=== PATIENT | male | born 1990 | race Hispanic/Latino ===

== ENCOUNTER 2018-02-02 09:41 | Inpatient (IN) | payer SELFPAY ==
[2018-02-02] MEDS ORDERED: ZOFRAN IV ONE (11:20)
[2018-02-02] MEDS ORDERED: BENTYL IM ONE (11:20)
[2018-02-02] MEDS ORDERED: NACL 0.9% 1000 ML 1,000 ML IV ONE ×2 (11:20→15:29)
--- NOTE | 2018-02-02 11:36 | Emergency Department Report ---
HPI - General Chief Complaint: Abdominal Pain Time Seen by Provider: 02/02/18 11:13 - HPI HPI: Room 22 The patient is a 27-year-old male presenting with chief complaint of abdominal pain and constipation. The patient states he hasn't had a good bowel movement since earlier this week. The patient states yesterday was very small amount of stool. Patient states last night he developed periumbilical abdominal pain. Patient is to nausea and vomiting 3. Patient states he is able to pass flatus yesterday but none today. The patient states he attempted to use Ex-Lax and Gas-X but it did not help. Patient denies any history of fever. The patient states he has also had ~20 pound weight loss over the past 2 months but states he has been working out recently. Location: [See above] Duration: [See above] Quality: [See above] Severity: [See above] Modifying factors: [see above] Context: [see above] Mode of transportation: [not driving] ED Past Medical Hx - Past Medical History Previous Medical History?: No - Surgical History Past Surgical History?: No - Family History Family history: no significant - Social History Smoking Status: Former Smoker (none 5 years) Substance Use Type: None (denies illicit drug use), Alcohol (occasional) - Medications Home Medications: Home Medications Medication Instructions Recorded Confirmed Last Taken Type No Known Home Medications [No 02/02/18 02/02/18 Unknown History Reported Home Medications] ED Review of Systems ROS: Stated complaint: CHEST PAIN/TIGHTNESS Other details as noted in HPI Constitutional: no symptoms reported Eyes: denies: eye pain ENT: denies: throat pain Respiratory: no symptoms reported Cardiovascular: denies: chest pain Endocrine: no symptoms reported Gastrointestinal: abdominal pain, nausea, vomiting, constipation Genitourinary: denies: dysuria Musculoskeletal: denies: back pain Neurological: denies: headache Physical Exam - Physical Exam Vital Signs: Vital Signs 02/02/18 09:56 Temperature 98.2 F Pulse Rate 105 H Respiratory 24 Rate Blood Pressure 142/99 O2 Sat by Pulse 99 Oximetry Physical Exam: GENERAL: The patient is well-developed well-nourished male lying on stretcher not appearing to be in acute distress. [] HEENT: Normocephalic. Atraumatic. Extraocular motions are intact. Patient has moist mucous membranes. NECK: Supple. Trachea midline CHEST/LUNGS: Clear to auscultation. There is no respiratory distress noted. HEART/CARDIOVASCULAR: Regular. There is no tachycardia. There is no gallop rub or murmur. ABDOMEN: Abdomen is soft, with mild discomfort to palpation in the midepigastric and right upper quadrant. There is no rebound or guarding. Patient has normal bowel sounds. There is no abdominal distention. SKIN: There is no rash. There is no edema. There is no diaphoresis. NEURO: The patient is awake, alert, and oriented. The patient is cooperative. The patient has normal speech MUSCULOSKELETAL: There is no evidence of acute injury. ED Course Vital Signs 02/02/18 09:56 Temperature 98.2 F Pulse Rate 105 H Respiratory 24 Rate Blood Pressure 142/99 O2 Sat by Pulse 99 Oximetry ED Medical Decision Making - Lab Data Result diagrams: 02/02/18 11:47 02/02/18 11:47 Laboratory Tests 02/02/18 02/02/18 02/02/18 11:47 11:47 12:26 WBC 20.3 H RBC 5.97 H Hgb TNR Hct 51.5 H MCV 86 MCH TNR MCHC TNR RDW TNR Plt Count 254 Add Manual Diff Complete Total Counted 100 Seg Neuts % (Manual) 80.0 H Band Neutrophils % 10.0 Lymphocytes % (Manual) 6.0 L Reactive Lymphs % (Man) 0 Monocytes % (Manual) 3.0 Eosinophils % (Manual) 0 Basophils % (Manual) 0 Metamyelocytes % 1.0 Myelocytes % 0 Promyelocytes % 0 Blast Cells % 0 Nucleated RBC % Not Reportable Seg Neutrophils # Man 16.2 H Band Neutrophils # 2.0 Lymphocytes # (Manual) 1.2 Abs React Lymphs (Man) 0.0 Monocytes # (Manual) 0.6 Eosinophils # (Manual) 0.0 Basophils # (Manual) 0.0 Metamyelocytes # 0.2 Myelocytes # 0.0 Promyelocytes # 0.0 Blast Cells # 0.0 WBC Morphology Not Reportable Hypersegmented Neuts Not Reportable Hyposegmented Neuts Not Reportable Hypogranular Neuts Not Reportable Smudge Cells Not Reportable Toxic Granulation Not Reportable Toxic Vacuolation Not Reportable Dohle Bodies Not Reportable Pelger-Huet Anomaly Not Reportable Ariadna Rods Not Reportable Platelet Estimate Appears normal Clumped Platelets Not Reportable Plt Clumps, EDTA Not Reportable Large Platelets Not Reportable Giant Platelets Not Reportable Platelet Satelliting Not Reportable Plt Morphology Comment Not Reportable RBC Morphology Not Reportable Dimorphic RBCs Not Reportable Polychromasia Not Reportable Hypochromasia Not Reportable Poikilocytosis Not Reportable Anisocytosis 1+ Microcytosis Not Reportable Macrocytosis Not Reportable Spherocytes Not Reportable Pappenheimer Bodies Not Reportable Sickle Cells Not Reportable Target Cells Not Reportable Tear Drop Cells Not Reportable Ovalocytes 1+ Helmet Cells Not Reportable Colon-[place] Bodies Not Reportable [place] Rings Not Reportable Lisa Cells 1+ Bite Cells Not Reportable Crenated Cell Not Reportable Elliptocytes Not Reportable Acanthocytes (Spur) Not Reportable Rouleaux Not Reportable Hemoglobin C Crystals Not Reportable Schistocytes Not Reportable Malaria parasites Not Reportable [place] Bodies Not Reportable Hem Pathologist Commnt No Sodium TNR Potassium TNR Chloride TNR Carbon Dioxide TNR Anion Gap TNR BUN TNR Creatinine TNR Estimated GFR TNR BUN/Creatinine Ratio TNR Glucose TNR Calcium TNR Total Bilirubin TNR AST TNR ALT TNR Alkaline Phosphatase TNR Total Protein TNR Albumin TNR Albumin/Globulin Ratio TNR Amylase TNR Lipase TNR Urine Color Yellow Urine Turbidity Clear Urine pH 6.0 Ur Specific [place] 1.030 Urine Protein 30 mg/dl Urine Glucose (UA) >=500 Urine Ketones 80 Urine Blood Sm Urine Nitrite Neg Urine Bilirubin Neg Urine Urobilinogen < 2.0 Ur Leukocyte Esterase Neg Urine WBC (Auto) < 1.0 Urine RBC (Auto) 4.0 - Radiology Data Radiology results: report reviewed (CT abdomen and pelvis), image reviewed (CT abdomen and pelvis) [address] [address] Cat Scan Report Signed Patient: OFE CERVANTES MR#: [id number] : 1990 Acct:[id number] Age/Sex: 27 / M ADM Date: 02/02/18 Loc: ED Attending Dr: Ordering Physician: JAYLEEN SIDHU MD Date of Service: 02/02/18 Procedure(s): CT abdomen pelvis w con Accession Number(s): [id number] cc: JAYLEEN SIDHU MD CT ABDOMEN PELVIS WITH CONTRAST: HISTORY: Diffuse abdominal pain, nausea and vomiting. COMPARISON: none. TECHNIQUE: Helical CT in 1.25mm intervals following IV contrast. Sagittal and coronal reconstructions. FINDINGS: Lung bases: Normal. Liver: Mild diffuse fatty infiltration throughout the liver is noted. The liver appears mildly enlarged. No focal liver mass. Biliary system: Normal. Pancreas: The pancreatic body and tell are thickened and slightly heterogeneous. There is moderate fluid surrounding the pancreas suggesting acute pancreatitis. A 1 cm hypodensity is identified in the pancreatic body which probably represents early pseudocyst formation. Spleen: Normal. Kidneys/ureters/bladder: Normal. Adrenal glands: Normal. Aorta: Normal. Intestines: Normal. Appendix: Normal. Pelvic viscera: Normal. Ascites: Small peripancreatic ascites. Adenopathy: None. Musculoskeletal: Normal. IMPRESSION: Findings consistent with acute pancreatitis. Transcribed By: TTR Dictated By: SWATI STEPHENSON JR, MD Electronically Authenticated By: SWATI STEPHENSON JR, MD Signed Date/Time: 02/02/18 152 DD/ TD/TT: 02/02/18 152 - Differential Diagnosis constipation, small bowel instruction, ileus Critical care attestation.: If time is entered above; I have spent that time in minutes in the direct care of this critically ill patient, excluding procedure time. ED Disposition Clinical Impression: Acute abdominal pain, Acute pancreatitis, Leukocytosis Disposition: OP ADMIT IP TO THIS HOSP Is pt being admited?: Yes Does the pt Need Aspirin: No Condition: Fair Time of Disposition: 15:32 (Hospitalist paged (Dr Pereira))
[2018-02-02 12:53] LABS: Bilirubin,Urine NEG (Negative); Blood,Urine SM (Negative); Color,Urine Yellow (Yellow); Urobilinogen,Urine < 2.0 mg/dL (<2.0); WBC,Urine < 1.0 /HPF (0.0-6.0)
[2018-02-02 13:37] LABS: Hematocrit 51.5 % (35.5-45.6); Mean Corpuscular Volume 86 fl (84-94); Platelet Count 254 K/mm3 (140-440); Red Blood Count 5.97 M/mm3 (3.65-5.03)
[2018-02-02 13:38] LABS: Hemoglobin TNR gm/dl (11.8-15.2); Mean Corpuscular HGB Conc TNR % (32-34); Mean Corpuscular Hemoglobin TNR pg (28-32); Red Cell Distribution Width TNR % (13.2-15.2)
[2018-02-02] MEDS ORDERED: TORADOL IV ONE (14:04)
[2018-02-02] MEDS ORDERED: BENADRYL IV ONE (14:04)
[2018-02-02 14:10] LABS: Alanine Aminotransferase TNR units/L (7-56); Albumin TNR g/dL (3.9-5); Calcium TNR mg/dL (8.4-10.2)
[2018-02-02 14:11] LABS: Lipase TNR units/L (13-60)
[2018-02-02 14:18] LABS: BUN/Creatinine Ratio TNR; Blood Urea Nitrogen TNR mg/dL (9-20)
[2018-02-02 14:19] LABS: Hemolysis Index TNR
[2018-02-02 14:26] LABS: Basophils % (Manual) 0 % (0.0-1.8); Eosinophils % (Manual) 0 % (0.0-4.3); Total Cells Counted 100
[2018-02-02 14:27] LABS: Anisocytosis 1+; Burr Cells 1+; Ovalocytes 1+
--- NOTE | 2018-02-02 15:23 | Cat Scan Report ---
CT ABDOMEN PELVIS WITH CONTRAST: HISTORY: Diffuse abdominal pain, nausea and vomiting. COMPARISON: none. TECHNIQUE: Helical CT in 1.25mm intervals following IV contrast. Sagittal and coronal reconstructions. FINDINGS: Lung bases: Normal. Liver: Mild diffuse fatty infiltration throughout the liver is noted. The liver appears mildly enlarged. No focal liver mass. Biliary system: Normal. Pancreas: The pancreatic body and tell are thickened and slightly heterogeneous. There is moderate fluid surrounding the pancreas suggesting acute pancreatitis. A 1 cm hypodensity is identified in the pancreatic body which probably represents early pseudocyst formation. Spleen: Normal. Kidneys/ureters/bladder: Normal. Adrenal glands: Normal. Aorta: Normal. Intestines: Normal. Appendix: Normal. Pelvic viscera: Normal. Ascites: Small peripancreatic ascites. Adenopathy: None. Musculoskeletal: Normal. IMPRESSION: Findings consistent with acute pancreatitis.
[2018-02-02] MEDS ORDERED: SUBLIMAZE IV ONE (15:29)
[2018-02-02] MEDS ORDERED: DILAUDID IV ONE (16:48)
[2018-02-02] MEDS ORDERED: DILAUDID ONE (16:48)
[2018-02-02] MEDS ORDERED: ZOFRAN IV PRN (16:50)
[2018-02-02] MEDS ORDERED: SODIUM CHLORIDE FLUSH SYRINGE 10 ML IV PRN (16:50)
[2018-02-02] MEDS ORDERED: MIRALAX 3350 PO ONE (16:55)
[2018-02-02] MEDS ORDERED: COLACE PO ONE (16:55)
[2018-02-02] MEDS ORDERED: D50W (25GM) Syringe IV PRN (16:57)
[2018-02-02] MEDS ORDERED: NACL 0.9% 1000 ML 1,000 ML IV SCH (17:00)
[2018-02-02] MEDS ORDERED: KCL 20 MEQ in LACTATED RINGERS 1,000 ML IV SCH (17:00)
[2018-02-02] MEDS: NACL 0.9% 1000 ML 1,000 ML IV SCH ×4 (17:00→22:22)
--- NOTE | 2018-02-02 17:07 | History and Physical Report ---
History of Present Illness Date of examination: 02/02/18 Date of admission: 02/02/18 Chief complaint: Abdominal pain History of present illness: Patient is a 27-year-old male previously diagnosed with hyperlipidemia but with dietary changes recommended. He presents to the ER with complaints of abdominal pain and constipation who reports that for 1 week has not moved his bowel yesterday had a small amount of stool has been having increased polyuria and polydipsia over the last 2 months. He reports that about 2 days ago he began to experience significant name of his abdomen which waxed and waned rates it a 10 over 10 in intensity at this morning prompting him to come to the hospital. He denies any albuterol aggravating factors. He reports that he has been unable to keep any food down for the last 3 days. On arrival to the ER his blood was noted to be very lipemic and could not obtain accurate BMP he did not demonstrate any DVT about a significant elevated leukocytosis. He denies alcohol or tobacco use. He reports that he lost about 20 pounds in the last 2 months although he reports active exercise. ROS Constitutional: No fever, fatigue or weight loss. Skin: No rash. Eyes: No recent vision problems or eye pain. ENT: No congestion, ear pain, or sore throat. Endocrine: No thyroid problems. Cardiovascular: No chest pain. Respiratory: No cough, shortness of breath, congestion, or wheezing. Gastrointestinal: Positive abdominal pain with associated nausea vomiting no diarrhea Genitourinary: No dysuria. Musculoskeletal: No joint swelling. Neurologic: No seizures. Hematologic: No unusual bruising or bleeding. Psychiatric: No psychiatric problems, hallucinations or depression. All other systems reviewed and otherwise negative. Past History Past Medical History: hyperlipidemia Past Surgical History: No surgical history Social history: no significant social history, lives with family. denies: smoking, alcohol abuse, prescription drug abuse Family history: no significant family history Medications and Allergies Allergies Allergy/AdvReac Type Severity Reaction Status Date / Time No Known Allergies Allergy Unverified 02/02/18 09:56 Home Medications Medication Instructions Recorded Confirmed Last Taken Type No Known Home Medications [No 02/02/18 02/02/18 Unknown History Reported Home Medications] Active Meds: Active Medications Acetaminophen (Tylenol) 650 mg PO Q4H PRN PRN Reason: Pain MILD(1-3)/Fever >100.5/RODRIGUEZ Dextrose (D50w (25gm) Syringe) 0 ml IV PRN PRN PRN Reason: Hypoglycemia Docusate Sodium (Colace) 100 mg PO ONCE ONE Stop: 02/02/18 16:56 Hydromorphone HCl (Dilaudid) 1 mg IV Q3H PRN PRN Reason: Pain, Moderate (4-6) Sodium Chloride (Nacl 0.9% 1000 Ml) 1,000 mls @ 250 mls/hr IV ONCE ONE Stop: 02/02/18 19:28 Last Admin: 02/02/18 16:12 Dose: 250 mls/hr Documented by: Sodium Chloride (Nacl 0.9% 1000 Ml) 1,000 mls @ 0 mls/hr IV ONCE BRAYDEN Stop: 02/03/18 17:01 Potassium Chloride/Dextrose/Sod Cl (D5w/0.45% Nacl/Kcl 20 Meq) 20 meq in 1,000 mls @ 125 mls/hr IV DIRECT BRAYDEN Ondansetron HCl (Zofran) 4 mg IV Q8H PRN PRN Reason: Nausea And Vomiting Polyethylene Glycol (Miralax 3350) 17 gm PO ONCE ONE Stop: 02/02/18 16:56 Sodium Chloride (Sodium Chloride Flush Syringe 10 Ml) 10 ml IV BID BRAYDEN Sodium Chloride (Sodium Chloride Flush Syringe 10 Ml) 10 ml IV PRN PRN PRN Reason: LINE FLUSH Exam - Physical Exam Narrative exam: VITAL SIGNS: Reviewed. GENERAL: The patient appeared well nourished and normally developed and severe pain. Vital signs as documented. HEAD: No signs of head trauma. EYES: Pupils are equal. Extraocular motions intact. EARS: Hearing grossly intact. MOUTH: Oropharynx is normal. NECK: No adenopathy, no JVD. CHEST: Chest with clear breath sounds bilaterally. No wheezes, rales, or rhonchi. CARDIAC: Regular rate and rhythm. S1 and S2, without murmurs, gallops, or rubs. VASCULAR: No Edema. Peripheral pulses normal and equal in all extremities. ABDOMEN: Soft, dialyzed because of tenderness with guarding. No sign of distention. and no masses palpated. Bowel Sounds normal. MUSCULOSKELETAL: Good range of motion of all major joints. Extremities without clubbing, cyanosis or edema. NEUROLOGIC EXAM: Alert and oriented x 3. No focal sensory or strength defici ts. Speech normal. Follows commands. PSYCHIATRIC: Mood normal. SKIN: No rash or lesions. - Constitutional Vitals: Temp Pulse Resp BP Pulse Ox 98.6 F 126 H 16 129/80 98 02/02/18 16:00 02/02/18 16:00 02/02/18 16:00 02/02/18 16:00 02/02/18 16:00 Results - Labs CBC & Chem 7: 02/03/18 04:43 02/03/18 04:43 Labs: Laboratory Last Values WBC 20.3 K/mm3 (4.5-11.0) H 02/02/18 11:47 RBC 5.97 M/mm3 (3.65-5.03) H 02/02/18 11:47 Hgb TNR 02/02/18 11:47 Hct 51.5 % (35.5-45.6) H 02/02/18 11:47 MCV 86 fl (84-94) 02/02/18 11:47 MCH TNR 02/02/18 11:47 MCHC TNR 02/02/18 11:47 RDW TNR 02/02/18 11:47 Plt Count 254 K/mm3 (140-440) 02/02/18 11:47 Add Manual Diff Complete 02/02/18 11:47 Total Counted 100 02/02/18 11:47 Seg Neuts % (Manual) 80.0 % (40.0-70.0) H 02/02/18 11:47 Band Neutrophils % 10.0 % 02/02/18 11:47 Lymphocytes % (Manual) 6.0 % (13.4-35.0) L 02/02/18 11:47 Reactive Lymphs % (Man) 0 % 02/02/18 11:47 Monocytes % (Manual) 3.0 % (0.0-7.3) 02/02/18 11:47 Eosinophils % (Manual) 0 % (0.0-4.3) 02/02/18 11:47 Basophils % (Manual) 0 % (0.0-1.8) 02/02/18 11:47 Metamyelocytes % 1.0 % 02/02/18 11:47 Myelocytes % 0 % 02/02/18 11:47 Promyelocytes % 0 % 02/02/18 11:47 Blast Cells % 0 % 02/02/18 11:47 Nucleated RBC % Not Reportable 02/02/18 11:47 Seg Neutrophils # Man 16.2 K/mm3 (1.8-7.7) H 02/02/18 11:47 Band Neutrophils # 2.0 K/mm3 02/02/18 11:47 Lymphocytes # (Manual) 1.2 K/mm3 (1.2-5.4) 02/02/18 11:47 Abs React Lymphs (Man) 0.0 K/mm3 02/02/18 11:47 Monocytes # (Manual) 0.6 K/mm3 (0.0-0.8) 02/02/18 11:47 Eosinophils # (Manual) 0.0 K/mm3 (0.0-0.4) 02/02/18 11:47 Basophils # (Manual) 0.0 K/mm3 (0.0-0.1) 02/02/18 11:47 Metamyelocytes # 0.2 K/mm3 02/02/18 11:47 Myelocytes # 0.0 K/mm3 02/02/18 11:47 Promyelocytes # 0.0 K/mm3 02/02/18 11:47 Blast Cells # 0.0 K/mm3 02/02/18 11:47 WBC Morphology Not Reportable 02/02/18 11:47 Hypersegmented Neuts Not Reportable 02/02/18 11:47 Hyposegmented Neuts Not Reportable 02/02/18 11:47 Hypogranular Neuts Not Reportable 02/02/18 11:47 Smudge Cells Not Reportable 02/02/18 11:47 Toxic Granulation Not Reportable 02/02/18 11:47 Toxic Vacuolation Not Reportable 02/02/18 11:47 Dohle Bodies Not Reportable 02/02/18 11:47 Pelger-Huet Anomaly Not Reportable 02/02/18 11:47 Ariadna Rods Not Reportable 02/02/18 11:47 Platelet Estimate Appears normal 02/02/18 11:47 Clumped Platelets Not Reportable 02/02/18 11:47 Plt Clumps, EDTA Not Reportable 02/02/18 11:47 Large Platelets Not Reportable 02/02/18 11:47 Giant Platelets Not Reportable 02/02/18 11:47 Platelet Satelliting Not Reportable 02/02/18 11:47 Plt Morphology Comment Not Reportable 02/02/18 11:47 RBC Morphology Not Reportable 02/02/18 11:47 Dimorphic RBCs Not Reportable 02/02/18 11:47 Polychromasia Not Reportable 02/02/18 11:47 Hypochromasia Not Reportable 02/02/18 11:47 Poikilocytosis Not Reportable 02/02/18 11:47 Anisocytosis 1+ 02/02/18 11:47 Microcytosis Not Reportable 02/02/18 11:47 Macrocytosis Not Reportable 02/02/18 11:47 Spherocytes Not Reportable 02/02/18 11:47 Pappenheimer Bodies Not Reportable 02/02/18 11:47 Sickle Cells Not Reportable 02/02/18 11:47 Target Cells Not Reportable 02/02/18 11:47 Tear Drop Cells Not Reportable 02/02/18 11:47 Ovalocytes 1+ 02/02/18 11:47 Helmet Cells Not Reportable 02/02/18 11:47 Colon-[place] Bodies Not Reportable 02/02/18 11:47 [place] Rings Not Reportable 02/02/18 11:47 Lisa Cells 1+ 02/02/18 11:47 Bite Cells Not Reportable 02/02/18 11:47 Crenated Cell Not Reportable 02/02/18 11:47 Elliptocytes Not Reportable 02/02/18 11:47 Acanthocytes (Spur) Not Reportable 02/02/18 11:47 Rouleaux Not Reportable 02/02/18 11:47 Hemoglobin C Crystals Not Reportable 02/02/18 11:47 Schistocytes Not Reportable 02/02/18 11:47 Malaria parasites Not Reportable 02/02/18 11:47 [place]ak Bodies Not Reportable 02/02/18 11:47 Hem Pathologist Commnt No 02/02/18 11:47 Sodium TNR 02/02/18 11:47 Potassium TNR 02/02/18 11:47 Chloride TNR 02/02/18 11:47 Carbon Dioxide TNR 02/02/18 11:47 Anion Gap TNR 02/02/18 11:47 BUN TNR 02/02/18 11:47 Creatinine TNR 02/02/18 11:47 Estimated GFR TNR 02/02/18 11:47 BUN/Creatinine Ratio TNR 02/02/18 11:47 Glucose TNR 02/02/18 11:47 POC Glucose 322 (70-105) H 02/02/18 16:58 Calcium TNR 02/02/18 11:47 Total Bilirubin TNR 02/02/18 11:47 AST TNR 02/02/18 11:47 ALT TNR 02/02/18 11:47 Alkaline Phosphatase TNR 02/02/18 11:47 Total Protein TNR 02/02/18 11:47 Albumin TNR 02/02/18 11:47 Albumin/Globulin Ratio TNR 02/02/18 11:47 Amylase TNR 02/02/18 11:47 Lipase TNR 02/02/18 11:47 Urine Color Yellow (Yellow) 02/02/18 12:26 Urine Turbidity Clear (Clear) 02/02/18 12:26 Urine pH 6.0 (5.0-7.0) 02/02/18 12:26 Ur Specific [place] 1.030 (1.003-1.030) 02/02/18 12:26 Urine Protein 30 mg/dl mg/dL (Negative) 02/02/18 12:26 Urine Glucose (UA) >=500 mg/dL (Negative) 02/02/18 12:26 Urine Ketones 80 mg/dL (Negative) 02/02/18 12:26 Urine Blood Sm (Negative) 02/02/18 12:26 Urine Nitrite Neg (Negative) 02/02/18 12:26 Urine Bilirubin Neg (Negative) 02/02/18 12:26 Urine Urobilinogen < 2.0 mg/dL (<2.0) 02/02/18 12:26 Ur Leukocyte Esterase Neg (Negative) 02/02/18 12:26 Urine WBC (Auto) < 1.0 /HPF (0.0-6.0) 02/02/18 12:26 Urine RBC (Auto) 4.0 /HPF (0.0-6.0) 02/02/18 12:26 - Imaging and Cardiology CT scan - abdomen: image reviewed (consistent with acute pancreatitis) Assessment and Plan Assessment and plan: Patient is a 27-year-old male previously diagnosed with hyperlipidemia but with dietary changes recommended. He presents to the ER with complaints of abdominal pain and constipation who reports that for 1 week has not moved his bowel yesterday had a small amount of stool has been having increased polyuria and polydipsia over the last 2 months. He reports that about 2 days ago he began to experience significant name of his abdomen which waxed and waned rates it a 10 over 10 in intensity at this morning prompting him to come to the hospital. He denies any albuterol aggravating factors. He reports that he has been unable to keep any food down for the last 3 days. On arrival to the ER his blood was noted to be very lipemic and could not obtain accurate BMP he did not demonstrate any DVT about a significant elevated leukocytosis. He denies alcohol or tobacco use. Acute severe pancreatitis Hyperosmolar hyperglycemic state possible DKA Suspect secondary to Hyperlipidemia, but rule out other sources Leukocytosis- doubt infectious source Sinus Tachycardia Severe dehydration Peritoneal irritation Constipation secondary to spinal bowel from acute severe pancreatitis Plan Admit to ICU Site Administrator consult. Discussed with Dr Perez Start on aggressive fluid resuscitation Pain control Repeat CMP in 4 hours Blood cultures EKG reviewed and sinus tachycardia noted Insulin drip with DKA protocol DVT/GI Prophy The high probability of a clinically significant, sudden or life threatening deterioration of the [GI] system(s) required my full and direct attention, intervention and personal management. The aggregate critical care time was [75] minutes. This time is in addition to time spent performing reported procedures but includes the following: [x] Data Review and interpretation [x] Patient assessment and monitoring of vital signs [x] Documentation [x] Medication orders and management Advance Directives: Yes Plan of care discussed with patient/family: Yes
[2018-02-02 17:31] LABS: Amphetamine Screen,Urine PRESUMPTIVE NEGATIVE; Benzodiazepines Screen,Urine PRESUMPTIVE NEGATIVE; Cannabinoid Screen,Urine PRESUMPTIVE NEGATIVE; Cocaine Screen,Urine PRESUMPTIVE NEGATIVE; Methadone Screen,Urine PRESUMPTIVE NEGATIVE; Opiate Screen,Urine PRESUMPTIVE NEGATIVE
[2018-02-02 17:56] LABS: BUN/Creatinine Ratio 16; Blood Urea Nitrogen 14.4 mg/dL (9-20)
[2018-02-02 17:57] LABS: Calcium 8.6 mg/dL (8.4-10.2)
[2018-02-02 17:59] LABS: Alanine Aminotransferase 34.8 units/L (7-56); Albumin 4.3 g/dL (3.9-5)
[2018-02-02 18:03] LABS: HDL Cholesterol 13.2 mg/dL (40-59)
[2018-02-02 18:06] LABS: LDL Cholesterol,Direct 0 mg/dL (50-130)
[2018-02-02] MEDS: HumuLIN R 100 UNITS in NACL 0.9% 99 ML IV SCH (18:17)
[2018-02-02 19:14] LABS: Lipase > 300 units/L (13-60)
[2018-02-02 21:12] LABS: Hemolysis Index 73
[2018-02-02 21:24] LABS: Blood Urea Nitrogen 10 mg/dL (9-20)
[2018-02-02 21:25] LABS: Alanine Aminotransferase < 5 units/L (7-56); BUN/Creatinine Ratio 20; Calcium 7.1 mg/dL (8.4-10.2)
[2018-02-02 21:26] LABS: Albumin 3.2 g/dL (3.9-5)
[2018-02-02 21:58] LABS: Hemolysis Index 98
[2018-02-02 22:06] LABS: Blood Urea Nitrogen 10 mg/dL (9-20)
[2018-02-02 22:11] LABS: BUN/Creatinine Ratio 20
[2018-02-02 22:14] LABS: Calcium 2.4 mg/dL (8.4-10.2)
[2018-02-02] MEDS: SODIUM CHLORIDE FLUSH SYRINGE 10 ML IV SCH (22:23)
[2018-02-02] MEDS: DILAUDID IV PRN (22:24)
[2018-02-02 23:24] LABS: Hemolysis Index 87
[2018-02-02 23:30] LABS: Blood Urea Nitrogen 9 mg/dL (9-20)
[2018-02-02 23:48] LABS: BUN/Creatinine Ratio 13
[2018-02-03 01:33] LABS: Blood Urea Nitrogen 9 mg/dL (9-20); Calcium 6.8 mg/dL (8.4-10.2); Hemolysis Index 104
[2018-02-03 02:02] LABS: BUN/Creatinine Ratio 18
[2018-02-03] MEDS: TYLENOL PO PRN ×2 (04:14→18:21)
[2018-02-03 05:00] LABS: Basophils # (Auto) 0.1 K/mm3 (0.0-0.1); Basophils % (Auto) 0.6 % (0.0-1.8); Lymphocytes # (Auto) 1.4 K/mm3 (1.2-5.4); Lymphocytes % (Auto) 8.8 % (13.4-35.0); Mean Corpuscular HGB Conc 36 % (32-34); Mean Corpuscular Hemoglobin 31 pg (28-32); Mean Corpuscular Volume 87 fl (84-94); Monocytes % (Auto) 6.5 % (0.0-7.3); Platelet Count 196 K/mm3 (140-440); Red Blood Count 5.88 M/mm3 (3.65-5.03); Red Cell Distribution Width 14.7 % (13.2-15.2)
[2018-02-03 05:10] LABS: Hematocrit 50.9 % (35.5-45.6); Hemoglobin 18.1 gm/dl (11.8-15.2)
[2018-02-03 05:22] LABS: Albumin 3.2 g/dL (3.9-5); BUN/Creatinine Ratio 11; Blood Urea Nitrogen 8 mg/dL (9-20); Hemolysis Index 128
[2018-02-03 05:26] LABS: Alanine Aminotransferase 18 units/L (7-56)
[2018-02-03 05:28] LABS: Lipase 141 units/L (13-60)
[2018-02-03] MEDS: HumuLIN R 100 UNITS in NACL 0.9% 99 ML IV SCH ×2 (07:30→13:43)
[2018-02-03] MEDS ORDERED: SODIUM BICARBONATE IV ONE ×2 (07:57→08:30)
[2018-02-03] MEDS: D5W/0.45% NACL/KCL 20 MEQ 20 MEQ/1,000 ML BAG IV SCH ×2 (09:39→17:30)
[2018-02-03] MEDS: SODIUM CHLORIDE FLUSH SYRINGE 10 ML IV SCH ×2 (10:12→22:37)
[2018-02-03] MEDS: NACL 0.9% 1000 ML 1,000 ML IV SCH ×2 (11:30→12:40)
[2018-02-03] MEDS: LOVENOX SUB-Q SCH (12:21)
[2018-02-03] MEDS: PEPCID IV SCH ×2 (12:21→22:35)
--- NOTE | 2018-02-03 12:22 | XRay Report ---
AP CHEST: HISTORY: Respiratory failure AP view of the chest demonstrates a normal mediastinal and cardiac contour with clear lungs and normal bony and soft tissue structures. IMPRESSION: Unremarkable AP chest.
[2018-02-03] MEDS: DILAUDID IV PRN ×2 (12:24→22:42)
--- NOTE | 2018-02-03 12:52 | Consultation ---
History of Present Illness - Reason for Consult Consult date: 02/03/18 DKA with acute pancreatitis Requesting physician: KYLE NAQVI - History of Present Illness 27 y/o male with only past medical history of hyperlipidemia, presents with abdominal pain and constipation. Found to have elevated blood sugar with metabolic acidosis. Patient also had elevated lipase and amylase. Made NPO and started on Insulin drip. Also aggressive volume resuscitation given tachycardia and mild hypotension. This am feels better. Acidemia is improving. Still dry but hydration continues. Past History Past Medical History: hyperlipidemia Past Surgical History: No surgical history Social history: no significant social history, lives with family. denies: smoking, alcohol abuse, prescription drug abuse Family history: no significant family history Medications and Allergies Allergies Allergy/AdvReac Type Severity Reaction Status Date / Time No Known Allergies Allergy Unverified 02/02/18 09:56 Home Medications Medication Instructions Recorded Confirmed Last Taken Type No Known Home Medications [No 02/02/18 02/02/18 Unknown History Reported Home Medications] Active Meds: Active Medications Acetaminophen (Tylenol) 650 mg PO Q4H PRN PRN Reason: Pain MILD(1-3)/Fever >100.5/RODRIGUEZ Last Admin: 02/03/18 04:14 Dose: 650 mg Documented by: Dextrose (D50w (25gm) Syringe) 0 ml IV PRN PRN PRN Reason: Hypoglycemia Enoxaparin Sodium (Lovenox) 40 mg SUB-Q QDAY@1000 [facility] Last Admin: 02/03/18 12:21 Dose: 40 mg Documented by: Famotidine (Pepcid) 20 mg IV BID [facility] Last Admin: 02/03/18 12:21 Dose: 20 mg Documented by: Hydromorphone HCl (Dilaudid) 1 mg IV Q3H PRN PRN Reason: Pain, Moderate (4-6) Last Admin: 02/03/18 12:24 Dose: 1 mg Documented by: Potassium Chloride/Dextrose/Sod Cl (D5w/0.45% Nacl/Kcl 20 Meq) 20 meq in 1,000 mls @ 125 mls/hr IV DIRECT [facility] Last Admin: 02/03/18 09:39 Dose: 125 mls/hr Documented by: Insulin Human Regular 100 (units/ Sodium Chloride) 100 mls @ 1 mls/hr IV TITR [facility]; Protocol Last Titration: 02/03/18 12:10 Dose: 8 units/hr, 8 mls/hr Documented by: Sodium Chloride (Nacl 0.9% 1000 Ml) 1,000 mls @ 999 mls/hr IV DIRECT [facility] Stop: 02/05/18 19:01 Last Admin: 02/02/18 22:22 Dose: 999 mls/hr Documented by: Sodium Chloride (Nacl 0.9% 1000 Ml) 1,000 mls @ 999 mls/hr IV ONCE [facility] Stop: 02/04/18 12:01 Last Admin: 02/03/18 12:40 Dose: 999 mls/hr Documented by: Ondansetron HCl (Zofran) 4 mg IV Q8H PRN PRN Reason: Nausea And Vomiting Sodium Chloride (Sodium Chloride Flush Syringe 10 Ml) 10 ml IV BID [facility] Last Admin: 02/03/18 10:12 Dose: 10 ml Documented by: Sodium Chloride (Sodium Chloride Flush Syringe 10 Ml) 10 ml IV PRN PRN PRN Reason: LINE FLUSH Review of Systems All systems: negative Exam - Constitutional Vitals: Temp Pulse Resp BP Pulse Ox 98.5 F 131 H 24 115/75 96 02/02/18 18:00 02/03/18 10:30 02/03/18 12:24 02/03/18 10:30 02/03/18 10:30 General appearance: Present: mild distress, well-nourished - EENT Eyes: Present: PERRL, EOM intact ENT: hearing intact, clear oral mucosa - Neck Neck: Present: supple, normal ROM - Respiratory Respiratory: bilateral: CTA - Cardiovascular Rhythm: other (sinus tachycardia) - Extremities Extremities: no ischemia, pulses intact, pulses symmetrical Results - Labs CBC & Chem 7: 02/03/18 04:43 02/03/18 04:43 Labs: Abnormal lab results 02/02/18 02/02/18 02/02/18 Range/Units 11:47 14:17 16:58 WBC 20.3 H (4.5-11.0) K/mm3 RBC 5.97 H (3.65-5.03) M/mm3 Hgb (11.8-15.2) gm/dl Hct 51.5 H (35.5-45.6) % MCHC (32-34) % Lymph % (Auto) (13.4-35.0) % Gilmer # (0.0-0.8) K/mm3 Seg Neutrophils % (40.0-70.0) % Seg Neuts % (Manual) 80.0 H (40.0-70.0) % Lymphocytes % (Manual) 6.0 L (13.4-35.0) % Seg Neutrophils # (1.8-7.7) K/mm3 Seg Neutrophils # Man 16.2 H (1.8-7.7) K/mm3 Sodium (137-145) mmol/L Chloride 96 L (98-107) mmol/L Carbon Dioxide 12 L (22-30) mmol/L BUN (9-20) mg/dL Creatinine (0.8-1.5) mg/dL Glucose 390 H (75-100) mg/dL POC Glucose 322 H (70-105) Calcium (8.4-10.2) mg/dL Magnesium 1.64 L (1.7-2.3) mg/dL AST (5-40) units/L ALT (7-56) units/L Total Protein (6.3-8.2) g/dL Albumin (3.9-5) g/dL Triglycerides 301.2 H (2-149) mg/dL Cholesterol 27.6 L (50-199) mg/dL LDL Cholesterol Direct 0 L (50-130) mg/dL HDL Cholesterol 13.2 L (40-59) mg/dL Amylase 448.8 H (27-131) units/L Lipase > 300 H (13-60) units/L 02/02/18 02/02/18 02/02/18 Range/Units 19:31 20:19 20:34 WBC (4.5-11.0) K/mm3 RBC (3.65-5.03) M/mm3 Hgb (11.8-15.2) gm/dl Hct (35.5-45.6) % MCHC (32-34) % Lymph % (Auto) (13.4-35.0) % Gilmer # (0.0-0.8) K/mm3 Seg Neutrophils % (40.0-70.0) % Seg Neuts % (Manual) (40.0-70.0) % Lymphocytes % (Manual) (13.4-35.0) % Seg Neutrophils # (1.8-7.7) K/mm3 Seg Neutrophils # Man (1.8-7.7) K/mm3 Sodium 129 L D (137-145) mmol/L Chloride 97.2 L (98-107) mmol/L Carbon Dioxide 11 L (22-30) mmol/L BUN (9-20) mg/dL Creatinine 0.5 L (0.8-1.5) mg/dL Glucose 293 H (75-100) mg/dL POC Glucose 281 H 246 H (70-105) Calcium 7.1 L D (8.4-10.2) mg/dL Magnesium (1.7-2.3) mg/dL AST < 5 L (5-40) units/L ALT < 5 L (7-56) units/L Total Protein 5.0 L D (6.3-8.2) g/dL Albumin 3.2 L (3.9-5) g/dL Triglycerides (2-149) mg/dL Cholesterol (50-199) mg/dL LDL Cholesterol Direct (50-130) mg/dL HDL Cholesterol (40-59) mg/dL Amylase (27-131) units/L Lipase (13-60) units/L 02/02/18 02/02/18 02/02/18 Range/Units 21:11 21:32 22:37 WBC (4.5-11.0) K/mm3 RBC (3.65-5.03) M/mm3 Hgb (11.8-15.2) gm/dl Hct (35.5-45.6) % MCHC (32-34) % Lymph % (Auto) (13.4-35.0) % Gilmer # (0.0-0.8) K/mm3 Seg Neutrophils % (40.0-70.0) % Seg Neuts % (Manual) (40.0-70.0) % Lymphocytes % (Manual) (13.4-35.0) % Seg Neutrophils # (1.8-7.7) K/mm3 Seg Neutrophils # Man (1.8-7.7) K/mm3 Sodium 129 L (137-145) mmol/L Chloride 97.3 L (98-107) mmol/L Carbon Dioxide 12 L (22-30) mmol/L BUN (9-20) mg/dL Creatinine 0.5 L (0.8-1.5) mg/dL Glucose 277 H (75-100) mg/dL POC Glucose 246 H 262 H (70-105) Calcium 2.4 L* D (8.4-10.2) mg/dL Magnesium (1.7-2.3) mg/dL AST (5-40) units/L ALT (7-56) units/L Total Protein (6.3-8.2) g/dL Albumin (3.9-5) g/dL Triglycerides (2-149) mg/dL Cholesterol (50-199) mg/dL LDL Cholesterol Direct (50-130) mg/dL HDL Cholesterol (40-59) mg/dL Amylase (27-131) units/L Lipase (13-60) units/L 02/02/18 02/02/18 02/03/18 Range/Units 23:01 23:29 00:25 WBC (4.5-11.0) K/mm3 RBC (3.65-5.03) M/mm3 Hgb (11.8-15.2) gm/dl Hct (35.5-45.6) % MCHC (32-34) % Lymph % (Auto) (13.4-35.0) % Gilmer # (0.0-0.8) K/mm3 Seg Neutrophils % (40.0-70.0) % Seg Neuts % (Manual) (40.0-70.0) % Lymphocytes % (Manual) (13.4-35.0) % Seg Neutrophils # (1.8-7.7) K/mm3 Seg Neutrophils # Man (1.8-7.7) K/mm3 Sodium 130 L (137-145) mmol/L Chloride (98-107) mmol/L Carbon Dioxide 11 L (22-30) mmol/L BUN (9-20) mg/dL Creatinine 0.7 L (0.8-1.5) mg/dL Glucose 268 H (75-100) mg/dL POC Glucose 226 H 229 H (70-105) Calcium 7.0 L D (8.4-10.2) mg/dL Magnesium (1.7-2.3) mg/dL AST (5-40) units/L ALT (7-56) units/L Total Protein (6.3-8.2) g/dL Albumin (3.9-5) g/dL Triglycerides (2-149) mg/dL Cholesterol (50-199) mg/dL LDL Cholesterol Direct (50-130) mg/dL HDL Cholesterol (40-59) mg/dL Amylase (27-131) units/L Lipase (13-60) units/L 02/03/18 02/03/18 02/03/18 Range/Units 00:58 01:37 02:33 WBC (4.5-11.0) K/mm3 RBC (3.65-5.03) M/mm3 Hgb (11.8-15.2) gm/dl Hct (35.5-45.6) % MCHC (32-34) % Lymph % (Auto) (13.4-35.0) % Gilmer # (0.0-0.8) K/mm3 Seg Neutrophils % (40.0-70.0) % Seg Neuts % (Manual) (40.0-70.0) % Lymphocytes % (Manual) (13.4-35.0) % Seg Neutrophils # (1.8-7.7) K/mm3 Seg Neutrophils # Man (1.8-7.7) K/mm3 Sodium 132 L (137-145) mmol/L Chloride (98-107) mmol/L Carbon Dioxide 12 L (22-30) mmol/L BUN (9-20) mg/dL Creatinine 0.5 L (0.8-1.5) mg/dL Glucose 240 H (75-100) mg/dL POC Glucose 226 H 221 H (70-105) Calcium 6.8 L (8.4-10.2) mg/dL Magnesium (1.7-2.3) mg/dL AST (5-40) units/L ALT (7-56) units/L Total Protein (6.3-8.2) g/dL Albumin (3.9-5) g/dL Triglycerides (2-149) mg/dL Cholesterol (50-199) mg/dL LDL Cholesterol Direct (50-130) mg/dL HDL Cholesterol (40-59) mg/dL Amylase (27-131) units/L Lipase (13-60) units/L 02/03/18 02/03/18 02/03/18 Range/Units 04:08 04:43 04:43 WBC 15.7 H (4.5-11.0) K/mm3 RBC 5.88 H (3.65-5.03) M/mm3 Hgb 18.1 H (11.8-15.2) gm/dl Hct 50.9 H (35.5-45.6) % MCHC 36 H (32-34) % Lymph % (Auto) 8.8 L (13.4-35.0) % Gilmer # 1.0 H (0.0-0.8) K/mm3 Seg Neutrophils % 84.1 H (40.0-70.0) % Seg Neuts % (Manual) (40.0-70.0) % Lymphocytes % (Manual) (13.4-35.0) % Seg Neutrophils # 13.2 H (1.8-7.7) K/mm3 Seg Neutrophils # Man (1.8-7.7) K/mm3 Sodium 135 L (137-145) mmol/L Chloride (98-107) mmol/L Carbon Dioxide 11 L (22-30) mmol/L BUN 8 L (9-20) mg/dL Creatinine 0.7 L (0.8-1.5) mg/dL Glucose 271 H (75-100) mg/dL POC Glucose 209 H (70-105) Calcium 7.0 L (8.4-10.2) mg/dL Magnesium (1.7-2.3) mg/dL AST (5-40) units/L ALT (7-56) units/L Total Protein 5.7 L (6.3-8.2) g/dL Albumin 3.2 L (3.9-5) g/dL Triglycerides (2-149) mg/dL Cholesterol (50-199) mg/dL LDL Cholesterol Direct (50-130) mg/dL HDL Cholesterol (40-59) mg/dL Amylase (27-131) units/L Lipase 141 H (13-60) units/L 02/03/18 02/03/18 02/03/18 Range/Units 04:56 05:59 07:05 WBC (4.5-11.0) K/mm3 RBC (3.65-5.03) M/mm3 Hgb (11.8-15.2) gm/dl Hct (35.5-45.6) % MCHC (32-34) % Lymph % (Auto) (13.4-35.0) % Gilmer # (0.0-0.8) K/mm3 Seg Neutrophils % (40.0-70.0) % Seg Neuts % (Manual) (40.0-70.0) % Lymphocytes % (Manual) (13.4-35.0) % Seg Neutrophils # (1.8-7.7) K/mm3 Seg Neutrophils # Man (1.8-7.7) K/mm3 Sodium (137-145) mmol/L Chloride (98-107) mmol/L Carbon Dioxide (22-30) mmol/L BUN (9-20) mg/dL Creatinine (0.8-1.5) mg/dL Glucose (75-100) mg/dL POC Glucose 242 H 200 H 171 H (70-105) Calcium (8.4-10.2) mg/dL Magnesium (1.7-2.3) mg/dL AST (5-40) units/L ALT (7-56) units/L Total Protein (6.3-8.2) g/dL Albumin (3.9-5) g/dL Triglycerides (2-149) mg/dL Cholesterol (50-199) mg/dL LDL Cholesterol Direct (50-130) mg/dL HDL Cholesterol (40-59) mg/dL Amylase (27-131) units/L Lipase (13-60) units/L - Imaging and Cardiology Chest x-ray: image reviewed (clear) CT scan - abdomen: report reviewed CT scan - pelvis: report reviewed Assessment and Plan 27 y/o male with DKA and acute pancreatitis, exact etiologies unknown. 1. Unsure if sugar control is secondary to burnt out pancreas or if patient is a natural diabetic. Once stablized, will check A1c levels. 2. Continue insulin drip and NPO status for now 3. Serial chemistries 4. IV hydration 5. Monitor calcium levels to prevent sequestration for pancreatitis
[2018-02-03 14:24] LABS: Blood Urea Nitrogen TNR mg/dL (9-20)
[2018-02-03 14:25] LABS: BUN/Creatinine Ratio TNR; Calcium TNR mg/dL (8.4-10.2); Hemolysis Index TNR
--- NOTE | 2018-02-03 16:46 | Gastroenterology Consultation ---
History of Present Illness - Reason for Consult Consult date: 02/03/18 acute pancreatitis Requesting physician: KYLE NQAVI - History of Present Illness This is a 27 yo male with pmh significant for HLD admitted after presenting with abdominal pain and constipation. He reports having abdominal pain waxing and waning in the middle of his abdomen, nonradiating and loss of appetite with some nausea. He has not had any BM for the past 1 week. Unable to keep any food down for the past several days. He was noted to have elevated lipase and CT abdomen suggestive of acute pancreatitis. He denies any alcohol use or family hx of pancreatic conditions. His mother has DM. He has no prior diagnosis of Dm but he was found to be in DKA and started on insulin drip. He reports having had weight loss of about 20 lbs over the past 2 months and polydipsia and polyuria. Past History Past Medical History: hyperlipidemia Past Surgical History: No surgical history Social history: no significant social history, lives with family. denies: smoking, alcohol abuse, prescription drug abuse Family history: no significant family history Medications and Allergies Allergies Allergy/AdvReac Type Severity Reaction Status Date / Time No Known Allergies Allergy Unverified 02/02/18 09:56 Home Medications Medication Instructions Recorded Confirmed Last Taken Type No Known Home Medications [No 02/02/18 02/02/18 Unknown History Reported Home Medications] Active Meds: Active Medications Acetaminophen (Tylenol) 650 mg PO Q4H PRN PRN Reason: Pain MILD(1-3)/Fever >100.5/RODRIGUEZ Last Admin: 02/03/18 04:14 Dose: 650 mg Documented by: Dextrose (D50w (25gm) Syringe) 0 ml IV PRN PRN PRN Reason: Hypoglycemia Enoxaparin Sodium (Lovenox) 40 mg SUB-Q QDAY@1000 [facility] Last Admin: 02/03/18 12:21 Dose: 40 mg Documented by: Famotidine (Pepcid) 20 mg IV BID [facility] Last Admin: 02/03/18 12:21 Dose: 20 mg Documented by: Hydromorphone HCl (Dilaudid) 1 mg IV Q3H PRN PRN Reason: Pain, Moderate (4-6) Last Admin: 02/03/18 12:24 Dose: 1 mg Documented by: Potassium Chloride/Dextrose/Sod Cl (D5w/0.45% Nacl/Kcl 20 Meq) 20 meq in 1,000 mls @ 125 mls/hr IV DIRECT [facility] Last Admin: 02/03/18 09:39 Dose: 125 mls/hr Documented by: Insulin Human Regular 100 (units/ Sodium Chloride) 100 mls @ 1 mls/hr IV TITR [facility]; Protocol Last Titration: 02/03/18 15:30 Dose: 10 units/hr, 10 mls/hr Documented by: Sodium Chloride (Nacl 0.9% 1000 Ml) 1,000 mls @ 999 mls/hr IV DIRECT [facility] Stop: 02/05/18 19:01 Last Admin: 02/02/18 22:22 Dose: 999 mls/hr Documented by: Sodium Chloride (Nacl 0.9% 1000 Ml) 1,000 mls @ 999 mls/hr IV ONCE [facility] Stop: 02/04/18 12:01 Last Admin: 02/03/18 12:40 Dose: 999 mls/hr Documented by: Ondansetron HCl (Zofran) 4 mg IV Q8H PRN PRN Reason: Nausea And Vomiting Sodium Chloride (Sodium Chloride Flush Syringe 10 Ml) 10 ml IV BID [facility] Last Admin: 02/03/18 10:12 Dose: 10 ml Documented by: Sodium Chloride (Sodium Chloride Flush Syringe 10 Ml) 10 ml IV PRN PRN PRN Reason: LINE FLUSH Review of Systems - Review of Systems Constitutional: weight loss, no fever, no chills Cardiovascular: no chest pain, no edema Respiratory: no cough, no shortness of breath Gastrointestinal: abdominal pain, nausea, vomiting, constipation, loss of appetite, early satiety, no diarrhea, no BRBPR, no melena, no hematochezia Rectal: no bleeding Musculoskeletal: no gait dysfunction, no joint pain Integumentary: no rash Neurological: no weakness Hematologic/Lymphatic: no easy bruising Allergic/Immunologic: no wheezing, no angioedema Exam - Constitutional Vital Signs: Temp Pulse Resp BP Pulse Ox 98.5 F 131 H 24 115/75 96 02/02/18 18:00 02/03/18 10:30 02/03/18 12:24 02/03/18 10:30 02/03/18 10:30 General appearance: no acute distress, mild distress, obese - EENT Eyes: PERRL, EOM intact ENT: hearing intact, clear oral mucosa - Neck Neck: supple, normal ROM - Respiratory Respiratory effort: normal Respiratory: bilateral: CTA - Cardiovascular Rhythm: regular Heart Sounds: Present: S1 & S2 Extremities: pulses intact Extremity abnormal: edema - Gastrointestinal General gastrointestinal: Present: soft, tender, non-distended Rectal Exam: deferred - Integumentary Integumentary: Present: clear, warm, dry - Neurologic Neurological: alert and oriented x3 - Psychiatric Psychiatric: appropriate mood/affect, intact judgment & insight - Labs CBC & Chem 7: 02/03/18 04:43 02/03/18 11:03 Lab Results: Laboratory Results - last 24 hr 02/02/18 02/02/18 02/02/18 14:17 16:58 17:12 WBC RBC Hgb Hct MCV MCH MCHC RDW Plt Count Lymph % (Auto) Ada % (Auto) Eos % (Auto) Baso % (Auto) Lymph # Ada # Eos # Baso # Seg Neutrophils % Seg Neutrophils # Sodium 140.4 Potassium 4.8 Chloride 96 L Carbon Dioxide 12 L Anion Gap 37 BUN 14.4 Creatinine 0.9 Estimated GFR > 60 BUN/Creatinine Ratio 16 Glucose 390 H POC Glucose 322 H Calcium 8.6 Phosphorus 3.88 Magnesium 1.64 L Total Bilirubin 0.62 AST 26 ALT 34.8 Alkaline Phosphatase 60 Total Protein 6.9 Albumin 4.3 Albumin/Globulin Ratio 1.7 Triglycerides 301.2 H Cholesterol 27.6 L LDL Cholesterol Direct 0 L HDL Cholesterol 13.2 L Cholesterol/HDL Ratio 2.00 Amylase 448.8 H Lipase > 300 H Urine Opiates Screen Presumptive negative Urine Methadone Screen Presumptive negative Ur Barbiturates Screen Presumptive negative Ur Phencyclidine Scrn Presumptive negative Ur Amphetamines Screen Presumptive negative U Benzodiazepines Scrn Presumptive negative Urine Cocaine Screen Presumptive negative U Marijuana (THC) Screen Presumptive negative Drugs of Abuse Note Disclamer 02/02/18 02/02/18 02/02/18 19:31 20:19 20:34 WBC RBC Hgb Hct MCV MCH MCHC RDW Plt Count Lymph % (Auto) Ada % (Auto) Eos % (Auto) Baso % (Auto) Lymph # Ada # Eos # Baso # Seg Neutrophils % Seg Neutrophils # Sodium 129 L D Potassium 3.8 D Chloride 97.2 L Carbon Dioxide 11 L Anion Gap 25 BUN 10 Creatinine 0.5 L Estimated GFR > 60 BUN/Creatinine Ratio 20 Glucose 293 H POC Glucose 281 H 246 H Calcium 7.1 L D Phosphorus Magnesium Total Bilirubin 0.40 AST < 5 L ALT < 5 L Alkaline Phosphatase 50 Total Protein 5.0 L D Albumin 3.2 L Albumin/Globulin Ratio 1.8 Triglycerides Cholesterol LDL Cholesterol Direct HDL Cholesterol Cholesterol/HDL Ratio Amylase Lipase Urine Opiates Screen Urine Methadone Screen Ur Barbiturates Screen Ur Phencyclidine Scrn Ur Amphetamines Screen U Benzodiazepines Scrn Urine Cocaine Screen U Marijuana (THC) Screen Drugs of Abuse Note 02/02/18 02/02/18 02/02/18 21:11 21:32 22:37 WBC RBC Hgb Hct MCV MCH MCHC RDW Plt Count Lymph % (Auto) Ada % (Auto) Eos % (Auto) Baso % (Auto) Lymph # Ada # Eos # Baso # Seg Neutrophils % Seg Neutrophils # Sodium 129 L Potassium 4.0 Chloride 97.3 L Carbon Dioxide 12 L Anion Gap 24 BUN 10 Creatinine 0.5 L Estimated GFR > 60 BUN/Creatinine Ratio 20 Glucose 277 H POC Glucose 246 H 262 H Calcium 2.4 L* D Phosphorus Magnesium Total Bilirubin AST ALT Alkaline Phosphatase Total Protein Albumin Albumin/Globulin Ratio Triglycerides Cholesterol LDL Cholesterol Direct HDL Cholesterol Cholesterol/HDL Ratio Amylase Lipase Urine Opiates Screen Urine Methadone Screen Ur Barbiturates Screen Ur Phencyclidine Scrn Ur Amphetamines Screen U Benzodiazepines Scrn Urine Cocaine Screen U Marijuana (THC) Screen Drugs of Abuse Note 02/02/18 02/02/18 02/03/18 23:01 23:29 00:25 WBC RBC Hgb Hct MCV MCH MCHC RDW Plt Count Lymph % (Auto) Ada % (Auto) Eos % (Auto) Baso % (Auto) Lymph # Ada # Eos # Baso # Seg Neutrophils % Seg Neutrophils # Sodium 130 L Potassium 4.1 Chloride 99.5 Carbon Dioxide 11 L Anion Gap 24 BUN 9 Creatinine 0.7 L Estimated GFR > 60 BUN/Creatinine Ratio 13 Glucose 268 H POC Glucose 226 H 229 H Calcium 7.0 L D Phosphorus Magnesium Total Bilirubin AST ALT Alkaline Phosphatase Total Protein Albumin Albumin/Globulin Ratio Triglycerides Cholesterol LDL Cholesterol Direct HDL Cholesterol Cholesterol/HDL Ratio Amylase Lipase Urine Opiates Screen Urine Methadone Screen Ur Barbiturates Screen Ur Phencyclidine Scrn Ur Amphetamines Screen U Benzodiazepines Scrn Urine Cocaine Screen U Marijuana (THC) Screen Drugs of Abuse Note 12/21/18 12/21/18 12/21/18 00:58 01:37 02:33 WBC RBC Hgb Hct MCV MCH MCHC RDW Plt Count Lymph % (Auto) Ada % (Auto) Eos % (Auto) Baso % (Auto) Lymph # Ada # Eos # Baso # Seg Neutrophils % Seg Neutrophils # Sodium 132 L Potassium 4.8 Chloride 101.7 Carbon Dioxide 12 L Anion Gap 23 BUN 9 Creatinine 0.5 L Estimated GFR > 60 BUN/Creatinine Ratio 18 Glucose 240 H POC Glucose 226 H 221 H Calcium 6.8 L Phosphorus Magnesium Total Bilirubin AST ALT Alkaline Phosphatase Total Protein Albumin Albumin/Globulin Ratio Triglycerides Cholesterol LDL Cholesterol Direct HDL Cholesterol Cholesterol/HDL Ratio Amylase Lipase Urine Opiates Screen Urine Methadone Screen Ur Barbiturates Screen Ur Phencyclidine Scrn Ur Amphetamines Screen U Benzodiazepines Scrn Urine Cocaine Screen U Marijuana (THC) Screen Drugs of Abuse Note 02/03/18 02/03/18 02/03/18 04:08 04:43 04:43 WBC 15.7 H RBC 5.88 H Hgb 18.1 H Hct 50.9 H MCV 87 MCH 31 MCHC 36 H RDW 14.7 Plt Count 196 Lymph % (Auto) 8.8 L Ada % (Auto) 6.5 Eos % (Auto) 0.0 Baso % (Auto) 0.6 Lymph # 1.4 Ada # 1.0 H Eos # 0.0 Baso # 0.1 Seg Neutrophils % 84.1 H Seg Neutrophils # 13.2 H Sodium 135 L Potassium 4.6 Chloride 106.6 Carbon Dioxide 11 L Anion Gap 22 BUN 8 L Creatinine 0.7 L Estimated GFR > 60 BUN/Creatinine Ratio 11 Glucose 271 H POC Glucose 209 H Calcium 7.0 L Phosphorus Magnesium Total Bilirubin 0.60 AST 23 ALT 18 Alkaline Phosphatase 43 Total Protein 5.7 L Albumin 3.2 L Albumin/Globulin Ratio 1.3 Triglycerides Cholesterol LDL Cholesterol Direct HDL Cholesterol Cholesterol/HDL Ratio Amylase Lipase 141 H Urine Opiates Screen Urine Methadone Screen Ur Barbiturates Screen Ur Phencyclidine Scrn Ur Amphetamines Screen U Benzodiazepines Scrn Urine Cocaine Screen U Marijuana (THC) Screen Drugs of Abuse Note 02/03/18 02/03/18 02/03/18 04:56 05:59 07:05 WBC RBC Hgb Hct MCV MCH MCHC RDW Plt Count Lymph % (Auto) Ada % (Auto) Eos % (Auto) Baso % (Auto) Lymph # Ada # Eos # Baso # Seg Neutrophils % Seg Neutrophils # Sodium Potassium Chloride Carbon Dioxide Anion Gap BUN Creatinine Estimated GFR BUN/Creatinine Ratio Glucose POC Glucose 242 H 200 H 171 H Calcium Phosphorus Magnesium Total Bilirubin AST ALT Alkaline Phosphatase Total Protein Albumin Albumin/Globulin Ratio Triglycerides Cholesterol LDL Cholesterol Direct HDL Cholesterol Cholesterol/HDL Ratio Amylase Lipase Urine Opiates Screen Urine Methadone Screen Ur Barbiturates Screen Ur Phencyclidine Scrn Ur Amphetamines Screen U Benzodiazepines Scrn Urine Cocaine Screen U Marijuana (THC) Screen Drugs of Abuse Note 02/03/18 11:03 WBC RBC Hgb Hct MCV MCH MCHC RDW Plt Count Lymph % (Auto) Ada % (Auto) Eos % (Auto) Baso % (Auto) Lymph # Ada # Eos # Baso # Seg Neutrophils % Seg Neutrophils # Sodium TNR Potassium TNR Chloride TNR Carbon Dioxide TNR Anion Gap TNR BUN TNR Creatinine TNR Estimated GFR TNR BUN/Creatinine Ratio TNR Glucose TNR POC Glucose Calcium TNR Phosphorus Magnesium Total Bilirubin AST ALT Alkaline Phosphatase Total Protein Albumin Albumin/Globulin Ratio Triglycerides Cholesterol LDL Cholesterol Direct HDL Cholesterol Cholesterol/HDL Ratio Amylase Lipase Urine Opiates Screen Urine Methadone Screen Ur Barbiturates Screen Ur Phencyclidine Scrn Ur Amphetamines Screen U Benzodiazepines Scrn Urine Cocaine Screen U Marijuana (THC) Screen Drugs of Abuse Note - Imaging CT Scan: report reviewed Assessment and Plan 27 yo male with acute pancreatitis and DKA. - unclear etiology for pancreatitis - no clear offending medications or alcohol use. No family hx. LFTs normal. Nor mal appearing biliary system on the CT abdomen, which was significant for thickening of mid pancreas with surrounding fluids, suggestive of pancreatitis. Triglyceride in 300s. Rec: - s/p 8 liters of fluids so far - medical management for acute pancreatitis with NPO, pain management, and IV fluids. - monitor and target for Hct to downtrend with fluids. - management for DKA per primary team. - check IGG4 subclass. - will follow - Patient Problems (1) Acute abdominal pain Current Visit: Yes Status: Acute (2) Acute pancreatitis Current Visit: Yes Status: Acute
[2018-02-03] MEDS ORDERED: PNEUMOVAX 23 IM ONE (18:04)
[2018-02-03] MEDS ORDERED: AFLURIA QUAD 2018-2019 SYRINGE IM ONE (18:04)
[2018-02-03 18:19] LABS: BUN/Creatinine Ratio 12; Blood Urea Nitrogen 7 mg/dL (9-20); Calcium 7.2 mg/dL (8.4-10.2); Hemolysis Index 102
--- NOTE | 2018-02-03 18:47 | Progress Note ---
Assessment and Plan Assessment and plan: Patient is a 27-year-old male previously diagnosed with hyperlipidemia but with dietary changes recommended. He presents to the ER with complaints of abdominal pain and constipation who reports that for 1 week has not moved his bowel yesterday had a small amount of stool has been having increased polyuria and polydipsia over the last 2 months. He reports that about 2 days ago he began to experience significant name of his abdomen which waxed and waned rates it a 10 over 10 in intensity at this morning prompting him to come to the hospital. He denies any albuterol aggravating factors. He reports that he has been unable to keep any food down for the last 3 days. On arrival to the ER his blood was noted to be very lipemic and could not obtain accurate BMP he did not demonstrate any DVT about a significant elevated leukocytosis. He denies alcohol or tobacco use. Acute severe pancreatitis Hyperosmolar hyperglycemic state possible DKA Suspect secondary to Hyperlipidemia, but rule out other sources Leukocytosis- doubt infectious source Sinus Tachycardia Severe dehydration Peritoneal irritation Constipation secondary to spinal bowel from acute severe pancreatitis Plan supportive care Substation Mechanic consult. Discussed with Dr Perez Continue on aggressive fluid resuscitation Pain control Repeat CMP in 4 hours Blood cultures with no growth so far GI consult was EKG reviewed and sinus tachycardia noted Insulin drip with DKA protocol DVT/GI Prophy The high probability of a clinically significant, sudden or life threatening deterioration of the [GI] system(s) required my full and direct attention, intervention and personal management. The aggregate critical care time was [35] minutes. This time is in addition to time spent performing reported procedures but includes the following: [x] Data Review and interpretation [x] Patient assessment and monitoring of vital signs [x] Documentation [x] Medication orders and management History Interval history: Patient is seen today for: Abdominal pain Seen and examined at bedside; 24hour events reviewed; nursing staff ; no adverse overnight events reported to me; Denies any chest pain, nausea, vomiting, diarrhea No fever noted Patient still significantly tachycardic. Although abdominal tenderness improved. Hospitalist Physical - Physical exam Narrative exam: VITAL SIGNS: Reviewed. GENERAL: The patient appeared well nourished and normally developed abdominal still persists. No guarding. Vital signs as documented. HEAD: No signs of head trauma. EYES: Pupils are equal. Extraocular motions intact. EARS: Hearing grossly intact. MOUTH: Oropharynx is normal. NECK: No adenopathy, no JVD. CHEST: Chest with clear breath sounds bilaterally. No wheezes, rales, or rhonchi. CARDIAC: Regular rate and rhythm. S1 and S2, without murmurs, gallops, or rubs. VASCULAR: No Edema. Peripheral pulses normal and equal in all extremities. ABDOMEN: Soft, dialyzed because of tenderness without guarding. No sign of distention. and no masses palpated. Bowel Sounds normal. MUSCULOSKELETAL: Good range of motion of all major joints. Extremities without clubbing, cyanosis or edema. NEUROLOGIC EXAM: Alert and oriented x 3. No focal sensory or strength deficits. Speech normal. Follows commands. PSYCHIATRIC: Mood normal. SKIN: No rash or lesions. - Constitutional Vitals: Temp Pulse Resp BP Pulse Ox 98.5 F 128 H 26 H 131/84 96 02/02/18 18:00 02/03/18 17:46 02/03/18 17:46 02/03/18 17:46 02/03/18 17:46 General appearance: Present: mild distress, well-nourished Results - Labs CBC & Chem 7: 02/03/18 04:43 02/03/18 17:23 Labs: Laboratory Last Values WBC 15.7 K/mm3 (4.5-11.0) H 02/03/18 04:43 RBC 5.88 M/mm3 (3.65-5.03) H 02/03/18 04:43 Hgb 18.1 gm/dl (11.8-15.2) H 02/03/18 04:43 Hct 50.9 % (35.5-45.6) H 02/03/18 04:43 MCV 87 fl (84-94) 02/03/18 04:43 MCH 31 pg (28-32) 02/03/18 04:43 MCHC 36 % (32-34) H 02/03/18 04:43 RDW 14.7 % (13.2-15.2) 02/03/18 04:43 Plt Count 196 K/mm3 (140-440) 02/03/18 04:43 Lymph % (Auto) 8.8 % (13.4-35.0) L 02/03/18 04:43 [place] % (Auto) 6.5 % (0.0-7.3) 02/03/18 04:43 Eos % (Auto) 0.0 % (0.0-4.3) 02/03/18 04:43 Baso % (Auto) 0.6 % (0.0-1.8) 02/03/18 04:43 Lymph # 1.4 K/mm3 (1.2-5.4) 02/03/18 04:43 [place] # 1.0 K/mm3 (0.0-0.8) H 02/03/18 04:43 Eos # 0.0 K/mm3 (0.0-0.4) 02/03/18 04:43 Baso # 0.1 K/mm3 (0.0-0.1) 02/03/18 04:43 Add Manual Diff Complete 02/02/18 11:47 Total Counted 100 02/02/18 11:47 Seg Neutrophils % 84.1 % (40.0-70.0) H 02/03/18 04:43 Seg Neuts % (Manual) 80.0 % (40.0-70.0) H 02/02/18 11:47 Band Neutrophils % 10.0 % 02/02/18 11:47 Lymphocytes % (Manual) 6.0 % (13.4-35.0) L 02/02/18 11:47 Reactive Lymphs % (Man) 0 % 02/02/18 11:47 Monocytes % (Manual) 3.0 % (0.0-7.3) 02/02/18 11:47 Eosinophils % (Manual) 0 % (0.0-4.3) 02/02/18 11:47 Basophils % (Manual) 0 % (0.0-1.8) 02/02/18 11:47 Metamyelocytes % 1.0 % 02/02/18 11:47 Myelocytes % 0 % 02/02/18 11:47 Promyelocytes % 0 % 02/02/18 11:47 Blast Cells % 0 % 02/02/18 11:47 Nucleated RBC % Not Reportable 02/02/18 11:47 Seg Neutrophils # 13.2 K/mm3 (1.8-7.7) H 02/03/18 04:43 Seg Neutrophils # Man 16.2 K/mm3 (1.8-7.7) H 02/02/18 11:47 Band Neutrophils # 2.0 K/mm3 02/02/18 11:47 Lymphocytes # (Manual) 1.2 K/mm3 (1.2-5.4) 02/02/18 11:47 Abs React Lymphs (Man) 0.0 K/mm3 02/02/18 11:47 Monocytes # (Manual) 0.6 K/mm3 (0.0-0.8) 02/02/18 11:47 Eosinophils # (Manual) 0.0 K/mm3 (0.0-0.4) 02/02/18 11:47 Basophils # (Manual) 0.0 K/mm3 (0.0-0.1) 02/02/18 11:47 Metamyelocytes # 0.2 K/mm3 02/02/18 11:47 Myelocytes # 0.0 K/mm3 02/02/18 11:47 Promyelocytes # 0.0 K/mm3 02/02/18 11:47 Blast Cells # 0.0 K/mm3 02/02/18 11:47 WBC Morphology Not Reportable 02/02/18 11:47 Hypersegmented Neuts Not Reportable 02/02/18 11:47 Hyposegmented Neuts Not Reportable 02/02/18 11:47 Hypogranular Neuts Not Reportable 02/02/18 11:47 Smudge Cells Not Reportable 02/02/18 11:47 Toxic Granulation Not Reportable 02/02/18 11:47 Toxic Vacuolation Not Reportable 02/02/18 11:47 Dohle Bodies Not Reportable 02/02/18 11:47 Pelger-Huet Anomaly Not Reportable 02/02/18 11:47 Ariadna Rods Not Reportable 02/02/18 11:47 Platelet Estimate Appears normal 02/02/18 11:47 Clumped Platelets Not Reportable 02/02/18 11:47 Plt Clumps, EDTA Not Reportable 02/02/18 11:47 Large Platelets Not Reportable 02/02/18 11:47 Giant Platelets Not Reportable 02/02/18 11:47 Platelet Satelliting Not Reportable 02/02/18 11:47 Plt Morphology Comment Not Reportable 02/02/18 11:47 RBC Morphology Not Reportable 02/02/18 11:47 Dimorphic RBCs Not Reportable 02/02/18 11:47 Polychromasia Not Reportable 02/02/18 11:47 Hypochromasia Not Reportable 02/02/18 11:47 Poikilocytosis Not Reportable 02/02/18 11:47 Anisocytosis 1+ 02/02/18 11:47 Microcytosis Not Reportable 02/02/18 11:47 Macrocytosis Not Reportable 02/02/18 11:47 Spherocytes Not Reportable 02/02/18 11:47 Pappenheimer Bodies Not Reportable 02/02/18 11:47 Sickle Cells Not Reportable 02/02/18 11:47 Target Cells Not Reportable 02/02/18 11:47 Tear Drop Cells Not Reportable 02/02/18 11:47 Ovalocytes 1+ 02/02/18 11:47 Helmet Cells Not Reportable 02/02/18 11:47 Colon-[place] Bodies Not Reportable 02/02/18 11:47 [place] Rings Not Reportable 02/02/18 11:47 Lisa Cells 1+ 02/02/18 11:47 Bite Cells Not Reportable 02/02/18 11:47 Crenated Cell Not Reportable 02/02/18 11:47 Elliptocytes Not Reportable 02/02/18 11:47 Acanthocytes (Spur) Not Reportable 02/02/18 11:47 Rouleaux Not Reportable 02/02/18 11:47 Hemoglobin C Crystals Not Reportable 02/02/18 11:47 Schistocytes Not Reportable 02/02/18 11:47 Malaria parasites Not Reportable 02/02/18 11:47 [place]ak Bodies Not Reportable 02/02/18 11:47 Hem Pathologist Commnt No 02/02/18 11:47 Sodium 135 mmol/L (137-145) L 02/03/18 17:23 Potassium 4.1 mmol/L (3.6-5.0) 02/03/18 17:23 Chloride 107.5 mmol/L (98-107) H 02/03/18 17:23 Carbon Dioxide 15 mmol/L (22-30) L 02/03/18 17:23 Anion Gap 17 mmol/L 02/03/18 17:23 BUN 7 mg/dL (9-20) L 02/03/18 17:23 Creatinine 0.6 mg/dL (0.8-1.5) L 02/03/18 17:23 Estimated GFR > 60 ml/min 02/03/18 17:23 BUN/Creatinine Ratio 12 % 02/03/18 17:23 Glucose 173 mg/dL (75-100) H 02/03/18 17:23 POC Glucose 145 (70-105) H 02/03/18 16:58 Calcium 7.2 mg/dL (8.4-10.2) L 02/03/18 17:23 Phosphorus 3.88 mg/dL (2.5-4.5) 02/02/18 14:17 Magnesium 1.64 mg/dL (1.7-2.3) L 02/02/18 14:17 Total Bilirubin 0.60 mg/dL (0.1-1.2) 02/03/18 04:43 AST 23 units/L (5-40) 02/03/18 04:43 ALT 18 units/L (7-56) 02/03/18 04:43 Alkaline Phosphatase 43 units/L (35-129) 02/03/18 04:43 Total Protein 5.7 g/dL (6.3-8.2) L 02/03/18 04:43 Albumin 3.2 g/dL (3.9-5) L 02/03/18 04:43 Albumin/Globulin Ratio 1.3 % 02/03/18 04:43 Triglycerides 301.2 mg/dL (2-149) H 02/02/18 14:17 Cholesterol 27.6 mg/dL (50-199) L 02/02/18 14:17 LDL Cholesterol Direct 0 mg/dL (50-130) L 02/02/18 14:17 HDL Cholesterol 13.2 mg/dL (40-59) L 02/02/18 14:17 Cholesterol/HDL Ratio 2.00 % 02/02/18 14:17 Amylase 448.8 units/L (27-131) H 02/02/18 14:17 Lipase 141 units/L (13-60) H 02/03/18 04:43 Urine Color Yellow (Yellow) 02/02/18 12:26 Urine Turbidity Clear (Clear) 02/02/18 12:26 Urine pH 6.0 (5.0-7.0) 02/02/18 12:26 Ur Specific [place] 1.030 (1.003-1.030) 02/02/18 12:26 Urine Protein 30 mg/dl mg/dL (Negative) 02/02/18 12:26 Urine Glucose (UA) >=500 mg/dL (Negative) 02/02/18 12:26 Urine Ketones 80 mg/dL (Negative) 02/02/18 12:26 Urine Blood Sm (Negative) 02/02/18 12:26 Urine Nitrite Neg (Negative) 02/02/18 12:26 Urine Bilirubin Neg (Negative) 02/02/18 12:26 Urine Urobilinogen < 2.0 mg/dL (<2.0) 02/02/18 12:26 Ur Leukocyte Esterase Neg (Negative) 02/02/18 12:26 Urine WBC (Auto) < 1.0 /HPF (0.0-6.0) 02/02/18 12:26 Urine RBC (Auto) 4.0 /HPF (0.0-6.0) 02/02/18 12:26 Urine Opiates Screen Presumptive negative 02/02/18 17:12 Urine Methadone Screen Presumptive negative 02/02/18 17:12 Ur Barbiturates Screen Presumptive negative 02/02/18 17:12 Ur Phencyclidine Scrn Presumptive negative 02/02/18 17:12 Ur Amphetamines Screen Presumptive negative 02/02/18 17:12 U Benzodiazepines Scrn Presumptive negative 02/02/18 17:12 Urine Cocaine Screen Presumptive negative 02/02/18 17:12 U Marijuana (THC) Screen Presumptive negative 02/02/18 17:12 Drugs of Abuse Note Disclamer 02/02/18 17:12 Nutrition/Malnutrition Assess - Dietary Evaluation Nutrition/Malnutrition Findings: Nutrition Notes Start: 02/03/18 10:01 Freq: Status: Active Protocol: Document 02/03/18 10:01 (Rec: 02/03/18 10:11 [id number]) Co-Sign 02/03/18 10:01 NHALL Nutrition Notes Need for Assessment generated from: Education Initial or Follow up Assessment Current Diagnoses Diabetes Current Diet NPO Labs/Tests Reviewed. Medications Reviewed. Height 6 ft 2 in Weight 98.9 kg [place] Body Weight (lbs) 190.0 BMI 28.0 WEIGHT STATUS OVERWEIGHT Subjective/Other Information MD consult for DKA diet education. Pt stated he is eating well and is aware of high BG. Provided DKA education and handout. Burn Absent Trauma Absent #1 Nutrition Diagnoses Food and nutrition-related knowledge deficit Etiology limited exposure to DKA education As Evidenced by Signs and Symptoms elevated blood sugar Is patient on ventilator? No Is Patient Ambulatory and/or Out of Bed No REE-([facility]-confined to bed) [phone] Calculation Used for Recommendations [facility] Nutrition Intervention Teaching Recipient Patient Learning Readiness Good Teaching Methods Discussion Handout Response to Teaching Verbalize understanding Education Handouts Provided CHO Counting for people with DM. Barriers to Learning No Barriers RD phone number provided Yes Patient aware of follow up options Yes Goal #1 Blood Sugar control Goal #2 Adhere to CHO control diet Anticipated Discharge Needs: CHO controlled diet Revisit per MD consult or patient Sign Off request:
[2018-02-04 01:08] LABS: BUN/Creatinine Ratio 16; Blood Urea Nitrogen 8 mg/dL (9-20); Calcium 7.2 mg/dL (8.4-10.2); Hemolysis Index 111
[2018-02-04] MEDS: D5W/0.45% NACL/KCL 20 MEQ 20 MEQ/1,000 ML BAG IV SCH (01:31)
[2018-02-04] MEDS: HumuLIN R 100 UNITS in NACL 0.9% 99 ML IV SCH (01:32)
[2018-02-04] MEDS: DILAUDID IV PRN ×3 (03:47→22:12)
[2018-02-04 05:35] LABS: BUN/Creatinine Ratio 13; Blood Urea Nitrogen 8 mg/dL (9-20); Calcium 7.6 mg/dL (8.4-10.2); Hemolysis Index 251
[2018-02-04] MEDS: PEPCID IV SCH ×2 (10:09→22:12)
[2018-02-04] MEDS: SODIUM CHLORIDE FLUSH SYRINGE 10 ML IV SCH ×2 (10:10→22:16)
[2018-02-04] MEDS: LOVENOX SUB-Q SCH (10:10)
--- NOTE | 2018-02-04 10:46 | Gastroenterology Progress Note ---
Assessment and Plan 1. DKA 2. Acute pancreatitis - no significant alcohol history or stones on imaging. ? secondary to high triglycerides vs complication of DKA; r/o autoimmune etiologies. cont supportive care, IVF's, pain management. okay for trial of clears from gi stand point Subjective Date of service: 02/04/18 Principal diagnosis: pancreatitis, DKA Interval history: pt seen and examined. reports improvement in abd pain. requesting clears. no n/v Objective - Constitutional Vitals: Temp Pulse Resp BP Pulse Ox 99.3 F 107 H 24 132/87 98 02/04/18 07:59 02/04/18 07:46 02/04/18 07:46 02/04/18 07:46 02/04/18 07:46 General appearance: no acute distress - EENT Eyes: PERRL, EOM intact - Respiratory Respiratory effort: normal Respiratory: bilateral: CTA - Cardiovascular Rhythm: regular Heart Sounds: Present: S1 & S2 - Gastrointestinal General gastrointestinal: Present: soft, tender (mild epigastric ttp), non- distended - Neurologic Neurological: alert and oriented x3 - Psychiatric Psychiatric: appropriate mood/affect - Labs CBC & Chem 7: 02/03/18 04:43 02/04/18 04:54 Labs: Laboratory Results - last 24 hr 02/03/18 02/03/18 02/03/18 08:09 09:02 10:11 Sodium Potassium Chloride Carbon Dioxide Anion Gap BUN Creatinine Estimated GFR BUN/Creatinine Ratio Glucose POC Glucose 209 H 226 H 204 H Calcium 02/03/18 02/03/18 02/03/18 11:03 11:11 12:09 Sodium TNR Potassium TNR Chloride TNR Carbon Dioxide TNR Anion Gap TNR BUN TNR Creatinine TNR Estimated GFR TNR BUN/Creatinine Ratio TNR Glucose TNR POC Glucose 185 H 164 H Calcium TNR 02/03/18 02/03/18 02/03/18 13:18 14:31 15:32 Sodium Potassium Chloride Carbon Dioxide Anion Gap BUN Creatinine Estimated GFR BUN/Creatinine Ratio Glucose POC Glucose 160 H 190 H 170 H Calcium 02/03/18 02/03/18 02/03/18 16:58 17:23 18:19 Sodium 135 L Potassium 4.1 Chloride 107.5 H Carbon Dioxide 15 L Anion Gap 17 BUN 7 L Creatinine 0.6 L Estimated GFR > 60 BUN/Creatinine Ratio 12 Glucose 173 H POC Glucose 145 H 171 H Calcium 7.2 L 02/03/18 02/03/18 02/03/18 20:09 20:52 22:12 Sodium Potassium Chloride Carbon Dioxide Anion Gap BUN Creatinine Estimated GFR BUN/Creatinine Ratio Glucose POC Glucose 157 H 144 H 156 H Calcium 02/03/18 02/04/18 02/04/18 23:15 00:26 00:42 Sodium 133 L Potassium 3.8 Chloride 103.4 Carbon Dioxide 17 L Anion Gap 16 BUN 8 L Creatinine 0.5 L Estimated GFR > 60 BUN/Creatinine Ratio 16 Glucose 158 H POC Glucose 153 H 139 H Calcium 7.2 L 02/04/18 02/04/18 02/04/18 01:24 02:16 03:33 Sodium Potassium Chloride Carbon Dioxide Anion Gap BUN Creatinine Estimated GFR BUN/Creatinine Ratio Glucose POC Glucose 126 H 159 H 113 H Calcium 02/04/18 02/04/18 02/04/18 04:54 04:57 06:24 Sodium 134 L Potassium 4.1 Chloride 104.2 Carbon Dioxide 18 L Anion Gap 16 BUN 8 L Creatinine 0.6 L Estimated GFR > 60 BUN/Creatinine Ratio 13 Glucose 119 H POC Glucose 106 H 88 Calcium 7.6 L 02/04/18 02/04/18 07:49 09:30 Sodium Potassium Chloride Carbon Dioxide Anion Gap BUN Creatinine Estimated GFR BUN/Creatinine Ratio Glucose POC Glucose 151 H 177 H Calcium - Imaging CT scan: report reviewed
[2018-02-04] MEDS ORDERED: AFLURIA QUAD 2018-2019 SYRINGE IM ONE (12:00)
[2018-02-04] MEDS ORDERED: PNEUMOVAX 23 IM ONE (12:00)
[2018-02-04] MEDS ORDERED: D50W (25GM) Syringe IV PRN (12:08)
--- NOTE | 2018-02-04 12:13 | Progress Note ---
Assessment and Plan 27 y/o male with DKA and acute pancreatitis, exact etiologies unknown. 1. Will stop insulin drip now. Hold on placing on long acting until on a more consistent diet. High Dose Sliding Scale. 2. Clear liquid diet 3. Stop IV fluids 4. Will keep in ICU for at least one more day to monitor. may require insulin drip again Subjective Date of service: 02/04/18 Principal diagnosis: pancreatitis, DKA Interval history: Feels better. Would like to try some clear liquids. Anion Gap has closed. Objective - Constitutional Vitals: Vital Signs - 12hr 02/04/18 02/04/18 02/04/18 00:15 00:16 00:30 Temperature Pulse Rate 114 H 114 H Respiratory 20 19 21 Rate Blood Pressure 115/67 110/76 O2 Sat by Pulse 99 96 95 Oximetry 02/04/18 02/04/18 02/04/18 00:46 01:00 01:16 Temperature Pulse Rate 112 H 59 L 114 H Respiratory 20 21 24 Rate Blood Pressure 110/76 112/73 110/76 O2 Sat by Pulse 97 95 96 Oximetry 02/04/18 02/04/18 02/04/18 01:30 01:46 02:00 Temperature Pulse Rate 114 H 109 H 113 H Respiratory 21 21 22 Rate Blood Pressure 113/82 112/73 124/77 O2 Sat by Pulse 94 98 96 Oximetry 02/04/18 02/04/18 02/04/18 02:16 02:30 02:46 Temperature Pulse Rate 114 H 113 H 114 H Respiratory 21 20 23 Rate Blood Pressure 124/77 110/73 110/73 O2 Sat by Pulse 97 94 97 Oximetry 02/04/18 02/04/18 02/04/18 03:00 03:16 03:30 Temperature Pulse Rate 117 H 118 H 117 H Respiratory 24 22 22 Rate Blood Pressure 110/73 117/72 128/82 O2 Sat by Pulse 96 97 96 Oximetry 02/04/18 02/04/18 02/04/18 03:46 03:47 03:50 Temperature Pulse Rate 121 H Respiratory 23 18 20 Rate Blood Pressure 117/72 O2 Sat by Pulse 95 99 Oximetry 02/04/18 02/04/18 02/04/18 04:00 04:16 04:17 Temperature Pulse Rate 115 H 118 H Respiratory 20 19 18 Rate Blood Pressure 114/63 114/63 O2 Sat by Pulse 89 93 Oximetry 02/04/18 02/04/18 02/04/18 04:30 04:46 05:00 Temperature Pulse Rate 115 H 114 H 112 H Respiratory 19 20 18 Rate Blood Pressure 109/63 114/63 120/75 O2 Sat by Pulse 93 94 96 Oximetry 02/04/18 02/04/18 02/04/18 05:16 05:27 05:30 Temperature Pulse Rate 115 H 111 H Respiratory 19 20 18 Rate Blood Pressure 120/75 107/68 O2 Sat by Pulse 95 99 95 Oximetry 02/04/18 02/04/18 02/04/18 05:46 06:00 06:16 Temperature Pulse Rate 112 H 106 H 107 H Respiratory 18 18 18 Rate Blood Pressure 107/68 113/76 113/76 O2 Sat by Pulse 95 96 96 Oximetry 02/04/18 02/04/18 02/04/18 06:30 06:46 07:00 Temperature Pulse Rate 110 H 111 H 109 H Respiratory 21 18 19 Rate Blood Pressure 121/81 121/81 125/83 O2 Sat by Pulse 95 95 94 Oximetry 02/04/18 02/04/18 02/04/18 07:16 07:30 07:46 Temperature Pulse Rate 109 H 108 H 107 H Respiratory 18 23 24 Rate Blood Pressure 125/83 132/87 132/87 O2 Sat by Pulse 96 97 98 Oximetry 02/04/18 07:59 Temperature 99.3 F Pulse Rate Respiratory Rate Blood Pressure O2 Sat by Pulse Oximetry - Labs CBC & Chem 7: 02/03/18 04:43 02/04/18 04:54 Labs: Abnormal lab results 02/03/18 02/03/18 02/03/18 Range/Units 08:09 09:02 10:11 Sodium (137-145) mmol/L Chloride (98-107) mmol/L Carbon Dioxide (22-30) mmol/L BUN (9-20) mg/dL Creatinine (0.8-1.5) mg/dL Glucose (75-100) mg/dL POC Glucose 209 H 226 H 204 H (70-105) Calcium (8.4-10.2) mg/dL 02/03/18 02/03/18 02/03/18 Range/Units 11:11 12:09 13:18 Sodium (137-145) mmol/L Chloride (98-107) mmol/L Carbon Dioxide (22-30) mmol/L BUN (9-20) mg/dL Creatinine (0.8-1.5) mg/dL Glucose (75-100) mg/dL POC Glucose 185 H 164 H 160 H (70-105) Calcium (8.4-10.2) mg/dL 02/03/18 02/03/18 02/03/18 Range/Units 14:31 15:32 16:58 Sodium (137-145) mmol/L Chloride (98-107) mmol/L Carbon Dioxide (22-30) mmol/L BUN (9-20) mg/dL Creatinine (0.8-1.5) mg/dL Glucose (75-100) mg/dL POC Glucose 190 H 170 H 145 H (70-105) Calcium (8.4-10.2) mg/dL 02/03/18 02/03/18 02/03/18 Range/Units 17:23 18:19 20:09 Sodium 135 L (137-145) mmol/L Chloride 107.5 H (98-107) mmol/L Carbon Dioxide 15 L (22-30) mmol/L BUN 7 L (9-20) mg/dL Creatinine 0.6 L (0.8-1.5) mg/dL Glucose 173 H (75-100) mg/dL POC Glucose 171 H 157 H (70-105) Calcium 7.2 L (8.4-10.2) mg/dL 02/03/18 02/03/18 02/03/18 Range/Units 20:52 22:12 23:15 Sodium (137-145) mmol/L Chloride (98-107) mmol/L Carbon Dioxide (22-30) mmol/L BUN (9-20) mg/dL Creatinine (0.8-1.5) mg/dL Glucose (75-100) mg/dL POC Glucose 144 H 156 H 153 H (70-105) Calcium (8.4-10.2) mg/dL 02/04/18 02/04/18 02/04/18 Range/Units 00:26 00:42 01:24 Sodium 133 L (137-145) mmol/L Chloride (98-107) mmol/L Carbon Dioxide 17 L (22-30) mmol/L BUN 8 L (9-20) mg/dL Creatinine 0.5 L (0.8-1.5) mg/dL Glucose 158 H (75-100) mg/dL POC Glucose 139 H 126 H (70-105) Calcium 7.2 L (8.4-10.2) mg/dL 02/04/18 02/04/18 02/04/18 Range/Units 02:16 03:33 04:54 Sodium 134 L (137-145) mmol/L Chloride (98-107) mmol/L Carbon Dioxide 18 L (22-30) mmol/L BUN 8 L (9-20) mg/dL Creatinine 0.6 L (0.8-1.5) mg/dL Glucose 119 H (75-100) mg/dL POC Glucose 159 H 113 H (70-105) Calcium 7.6 L (8.4-10.2) mg/dL 02/04/18 02/04/18 02/04/18 Range/Units 04:57 07:49 09:30 Sodium (137-145) mmol/L Chloride (98-107) mmol/L Carbon Dioxide (22-30) mmol/L BUN (9-20) mg/dL Creatinine (0.8-1.5) mg/dL Glucose (75-100) mg/dL POC Glucose 106 H 151 H 177 H (70-105) Calcium (8.4-10.2) mg/dL 02/04/18 Range/Units 10:54 Sodium (137-145) mmol/L Chloride (98-107) mmol/L Carbon Dioxide (22-30) mmol/L BUN (9-20) mg/dL Creatinine (0.8-1.5) mg/dL Glucose (75-100) mg/dL POC Glucose 185 H (70-105) Calcium (8.4-10.2) mg/dL Medications & Allergies - Medications Allergies/Adverse Reactions: Allergies No Known Allergies Allergy (Unverified 02/02/18 09:56) Home Medications: Home Medications Medication Instructions Recorded Confirmed Last Taken Type No Known Home Medications [No 02/02/18 02/02/18 Unknown History Reported Home Medications] Active Medications: Generic Name Dose Route Start Last Admin Trade Name Freq PRN Reason Stop Dose Admin Acetaminophen 650 mg 02/02/18 16:50 02/03/18 18:21 Tylenol PO 650 mg Q4H PRN Administration Pain MILD(1-3)/Fever >100.5/[id number] Dextrose 0 ml 02/02/18 16:57 D50w (25gm) Syringe IV PRN PRN Hypoglycemia Dextrose 50 ml 02/04/18 12:08 D50w (25gm) Syringe IV PRN PRN Hypoglycemia Enoxaparin Sodium 40 mg 02/03/18 12:00 02/04/18 10:10 Lovenox SUB-Q 40 mg QDAY@1000 BRAYDEN Administration Famotidine 20 mg 02/03/18 12:00 02/04/18 10:09 Pepcid IV 20 mg BID BRAYDEN Administration Hydromorphone HCl 1 mg 02/02/18 16:50 02/04/18 10:09 Dilaudid IV 1 mg Q3H PRN Administration Pain, Moderate (4-6) Potassium Chloride/Dextrose/Sod Cl 20 meq in 1,000 mls @ 125 mls/hr 02/02/18 17:00 02/04/18 01:31 D5w/0.45% Nacl/Kcl 20 Meq IV 125 mls/hr DIRECT BRAYDEN Administration Sodium Chloride 1,000 mls @ 999 mls/hr 02/02/18 18:00 02/02/18 22:22 Nacl 0.9% 1000 Ml IV 02/05/18 19:01 999 mls/hr DIRECT BRAYDEN Administration Insulin Human Regular 0 units 02/04/18 13:00 Humulin R SUB-Q Q6HR BRAYDEN Protocol Ondansetron HCl 4 mg 02/02/18 16:50 Zofran IV Q8H PRN Nausea And Vomiting Sodium Chloride 10 ml 02/02/18 22:00 02/04/18 10:10 Sodium Chloride Flush Syringe 10 Ml IV 10 ml BID BRAYDEN Administration Sodium Chloride 10 ml 02/02/18 16:50 Sodium Chloride Flush Syringe 10 Ml IV PRN PRN LINE FLUSH
[2018-02-04] MEDS: HumuLIN R SUB-Q SCH ×2 (12:50→17:49)
[2018-02-04 14:29] LABS: BUN/Creatinine Ratio 13; Blood Urea Nitrogen 8 mg/dL (9-20); Hemolysis Index 75
--- NOTE | 2018-02-04 15:42 | Progress Note ---
Assessment and Plan Assessment and plan: Patient is a 27-year-old man with history of dyslipidemia who presented with abdominal pains and constipation. He was found to have new onset DM with DKA and pancreatitis Acute severe pancreatitis: advance diet, pain control New onset DM with DKA: anion gap closed, will d/c insulin drip, use SSI instead of long acting because NPO but advancing diet now Suspect secondary to Hyperlipidemia, but rule out other sources Leukocytosis and Sinus tachycardia, SIRS with organ dysfunction, poa: treat the underlying condition CCT 35 minutes History Interval history: Patient was seen and examined. Follow-up on current diagnosis abdominal pains, still improved. Overnight uneventful. Patient denies any chest pain, shortness breath, nausea/vomiting or severe headaches. Imaging, nursing note, chart, labs and old chart reviewed. Discussed with patient. Hospitalist Physical - Physical exam Narrative exam: Gen: WDWN, NAD, Awake, Alert, Orientated HEENT: NCAT, EOMI, PERRL, OP Clear Neck: supple, no adenopathy, no thyromegaly, no JVD CVS/Heart: RRR, normal S1S2, pulses present bilaterally Chest/Lungs: CTA B, Symmetrical chest expansion, good air entry bilaterally GI/Abdomen: soft, epigastric tenderness, good bowel sounds, no guarding or rebound /Bladder: no suprapubic tenderness, no CVA or paraspinal tenderness Extermity/Skin: no c/c/e, no obvious rash MSK: FROM x 4 Neuro: CN 2-12 grossly intact, no new focal deficits Psych: calm - Constitutional Vitals: Temp Pulse Resp BP Pulse Ox 99.3 F 107 H 24 132/87 98 02/04/18 07:59 02/04/18 07:46 02/04/18 07:46 02/04/18 07:46 02/04/18 07:46 General appearance: Present: well-nourished Results - Labs CBC & Chem 7: 02/03/18 04:43 02/04/18 13:10 Labs: Laboratory Last Values WBC 15.7 K/mm3 (4.5-11.0) H 02/03/18 04:43 RBC 5.88 M/mm3 (3.65-5.03) H 02/03/18 04:43 Hgb 18.1 gm/dl (11.8-15.2) H 02/03/18 04:43 Hct 50.9 % (35.5-45.6) H 02/03/18 04:43 MCV 87 fl (84-94) 02/03/18 04:43 MCH 31 pg (28-32) 02/03/18 04:43 MCHC 36 % (32-34) H 02/03/18 04:43 RDW 14.7 % (13.2-15.2) 02/03/18 04:43 Plt Count 196 K/mm3 (140-440) 02/03/18 04:43 Lymph % (Auto) 8.8 % (13.4-35.0) L 02/03/18 04:43 [place] % (Auto) 6.5 % (0.0-7.3) 02/03/18 04:43 Eos % (Auto) 0.0 % (0.0-4.3) 02/03/18 04:43 Baso % (Auto) 0.6 % (0.0-1.8) 02/03/18 04:43 Lymph # 1.4 K/mm3 (1.2-5.4) 02/03/18 04:43 [place] # 1.0 K/mm3 (0.0-0.8) H 02/03/18 04:43 Eos # 0.0 K/mm3 (0.0-0.4) 02/03/18 04:43 Baso # 0.1 K/mm3 (0.0-0.1) 02/03/18 04:43 Add Manual Diff Complete 02/02/18 11:47 Total Counted 100 02/02/18 11:47 Seg Neutrophils % 84.1 % (40.0-70.0) H 02/03/18 04:43 Seg Neuts % (Manual) 80.0 % (40.0-70.0) H 02/02/18 11:47 Band Neutrophils % 10.0 % 02/02/18 11:47 Lymphocytes % (Manual) 6.0 % (13.4-35.0) L 02/02/18 11:47 Reactive Lymphs % (Man) 0 % 02/02/18 11:47 Monocytes % (Manual) 3.0 % (0.0-7.3) 02/02/18 11:47 Eosinophils % (Manual) 0 % (0.0-4.3) 02/02/18 11:47 Basophils % (Manual) 0 % (0.0-1.8) 02/02/18 11:47 Metamyelocytes % 1.0 % 02/02/18 11:47 Myelocytes % 0 % 02/02/18 11:47 Promyelocytes % 0 % 02/02/18 11:47 Blast Cells % 0 % 02/02/18 11:47 Nucleated RBC % Not Reportable 02/02/18 11:47 Seg Neutrophils # 13.2 K/mm3 (1.8-7.7) H 02/03/18 04:43 Seg Neutrophils # Man 16.2 K/mm3 (1.8-7.7) H 02/02/18 11:47 Band Neutrophils # 2.0 K/mm3 02/02/18 11:47 Lymphocytes # (Manual) 1.2 K/mm3 (1.2-5.4) 02/02/18 11:47 Abs React Lymphs (Man) 0.0 K/mm3 02/02/18 11:47 Monocytes # (Manual) 0.6 K/mm3 (0.0-0.8) 02/02/18 11:47 Eosinophils # (Manual) 0.0 K/mm3 (0.0-0.4) 02/02/18 11:47 Basophils # (Manual) 0.0 K/mm3 (0.0-0.1) 02/02/18 11:47 Metamyelocytes # 0.2 K/mm3 02/02/18 11:47 Myelocytes # 0.0 K/mm3 02/02/18 11:47 Promyelocytes # 0.0 K/mm3 02/02/18 11:47 Blast Cells # 0.0 K/mm3 02/02/18 11:47 WBC Morphology Not Reportable 02/02/18 11:47 Hypersegmented Neuts Not Reportable 02/02/18 11:47 Hyposegmented Neuts Not Reportable 02/02/18 11:47 Hypogranular Neuts Not Reportable 02/02/18 11:47 Smudge Cells Not Reportable 02/02/18 11:47 Toxic Granulation Not Reportable 02/02/18 11:47 Toxic Vacuolation Not Reportable 02/02/18 11:47 Dohle Bodies Not Reportable 02/02/18 11:47 Pelger-Huet Anomaly Not Reportable 02/02/18 11:47 [place]na Rods Not Reportable 02/02/18 11:47 Platelet Estimate Appears normal 02/02/18 11:47 Clumped Platelets Not Reportable 02/02/18 11:47 Plt Clumps, EDTA Not Reportable 02/02/18 11:47 Large Platelets Not Reportable 02/02/18 11:47 Giant Platelets Not Reportable 02/02/18 11:47 Platelet Satelliting Not Reportable 02/02/18 11:47 Plt Morphology Comment Not Reportable 02/02/18 11:47 RBC Morphology Not Reportable 02/02/18 11:47 Dimorphic RBCs Not Reportable 02/02/18 11:47 Polychromasia Not Reportable 02/02/18 11:47 Hypochromasia Not Reportable 02/02/18 11:47 Poikilocytosis Not Reportable 02/02/18 11:47 Anisocytosis 1+ 02/02/18 11:47 Microcytosis Not Reportable 02/02/18 11:47 Macrocytosis Not Reportable 02/02/18 11:47 Spherocytes Not Reportable 02/02/18 11:47 Pappenheimer Bodies Not Reportable 02/02/18 11:47 Sickle Cells Not Reportable 02/02/18 11:47 Target Cells Not Reportable 02/02/18 11:47 Tear Drop Cells Not Reportable 02/02/18 11:47 Ovalocytes 1+ 02/02/18 11:47 Helmet Cells Not Reportable 02/02/18 11:47 Colon-[place] Bodies Not Reportable 02/02/18 11:47 [place] Rings Not Reportable 02/02/18 11:47 [place] Cells 1+ 02/02/18 11:47 Bite Cells Not Reportable 02/02/18 11:47 Crenated Cell Not Reportable 02/02/18 11:47 Elliptocytes Not Reportable 02/02/18 11:47 Acanthocytes (Spur) Not Reportable 02/02/18 11:47 Rouleaux Not Reportable 02/02/18 11:47 Hemoglobin C Crystals Not Reportable 02/02/18 11:47 Schistocytes Not Reportable 02/02/18 11:47 Malaria parasites Not Reportable 02/02/18 11:47 [place] Bodies Not Reportable 02/02/18 11:47 Hem Pathologist Commnt No 02/02/18 11:47 Sodium 132 mmol/L (137-145) L 02/04/18 13:10 Potassium 3.9 mmol/L (3.6-5.0) 02/04/18 13:10 Chloride 100.5 mmol/L (98-107) 02/04/18 13:10 Carbon Dioxide 18 mmol/L (22-30) L 02/04/18 13:10 Anion Gap 17 mmol/L 02/04/18 13:10 BUN 8 mg/dL (9-20) L 02/04/18 13:10 Creatinine 0.6 mg/dL (0.8-1.5) L 02/04/18 13:10 Estimated GFR > 60 ml/min 02/04/18 13:10 BUN/Creatinine Ratio 13 % 02/04/18 13:10 Glucose 171 mg/dL (75-100) H 02/04/18 13:10 POC Glucose 155 (70-105) H 02/04/18 12:39 Calcium 8.0 mg/dL (8.4-10.2) L 02/04/18 13:10 Phosphorus 3.88 mg/dL (2.5-4.5) 02/02/18 14:17 Magnesium 1.64 mg/dL (1.7-2.3) L 02/02/18 14:17 Total Bilirubin 0.60 mg/dL (0.1-1.2) 02/03/18 04:43 AST 23 units/L (5-40) 02/03/18 04:43 ALT 18 units/L (7-56) 02/03/18 04:43 Alkaline Phosphatase 43 units/L (35-129) 02/03/18 04:43 Total Protein 5.7 g/dL (6.3-8.2) L 02/03/18 04:43 Albumin 3.2 g/dL (3.9-5) L 02/03/18 04:43 Albumin/Globulin Ratio 1.3 % 02/03/18 04:43 Triglycerides 301.2 mg/dL (2-149) H 02/02/18 14:17 Cholesterol 27.6 mg/dL (50-199) L 02/02/18 14:17 LDL Cholesterol Direct 0 mg/dL (50-130) L 02/02/18 14:17 HDL Cholesterol 13.2 mg/dL (40-59) L 02/02/18 14:17 Cholesterol/HDL Ratio 2.00 % 02/02/18 14:17 Amylase 448.8 units/L (27-131) H 02/02/18 14:17 Lipase 141 units/L (13-60) H 02/03/18 04:43 Urine Color Yellow (Yellow) 02/02/18 12:26 Urine Turbidity Clear (Clear) 02/02/18 12:26 Urine pH 6.0 (5.0-7.0) 02/02/18 12:26 Ur Specific [place] 1.030 (1.003-1.030) 02/02/18 12:26 Urine Protein 30 mg/dl mg/dL (Negative) 02/02/18 12:26 Urine Glucose (UA) >=500 mg/dL (Negative) 02/02/18 12:26 Urine Ketones 80 mg/dL (Negative) 02/02/18 12:26 Urine Blood Sm (Negative) 02/02/18 12:26 Urine Nitrite Neg (Negative) 02/02/18 12:26 Urine Bilirubin Neg (Negative) 02/02/18 12:26 Urine Urobilinogen < 2.0 mg/dL (<2.0) 02/02/18 12:26 Ur Leukocyte Esterase Neg (Negative) 02/02/18 12:26 Urine WBC (Auto) < 1.0 /HPF (0.0-6.0) 02/02/18 12:26 Urine RBC (Auto) 4.0 /HPF (0.0-6.0) 02/02/18 12:26 Urine Opiates Screen Presumptive negative 02/02/18 17:12 Urine Methadone Screen Presumptive negative 02/02/18 17:12 Ur Barbiturates Screen Presumptive negative 02/02/18 17:12 Ur Phencyclidine Scrn Presumptive negative 02/02/18 17:12 Ur Amphetamines Screen Presumptive negative 02/02/18 17:12 U Benzodiazepines Scrn Presumptive negative 02/02/18 17:12 Urine Cocaine Screen Presumptive negative 02/02/18 17:12 U Marijuana (THC) Screen Presumptive negative 02/02/18 17:12 Drugs of Abuse Note Disclamer 02/02/18 17:12 Nutrition/Malnutrition Assess - Dietary Evaluation Nutrition/Malnutrition Findings: Nutrition Notes Start: 02/03/18 10:01 Freq: Status: Active Protocol: Document 02/03/18 10:01 TW (Rec: 02/03/18 10:11 TW [id number]) Co-Sign 02/03/18 10:01 AN[place] Nutrition Notes Need for Assessment generated from: Education Initial or Follow up Assessment Current Diagnoses Diabetes Current Diet NPO Labs/Tests Reviewed. Medications Reviewed. Height 6 ft 2 in Weight 98.9 kg [place] Body Weight (lbs) 190.0 BMI 28.0 WEIGHT STATUS OVERWEIGHT Subjective/Other Information MD consult for DKA diet education. Pt stated he is eating well and is aware of high BG. Provided DKA education and handout. Burn Absent Trauma Absent #1 Nutrition Diagnoses Food and nutrition-related knowledge deficit Etiology limited exposure to DKA education As Evidenced by Signs and Symptoms elevated blood sugar Is patient on ventilator? No Is Patient Ambulatory and/or Out of Bed No REE-([facility]-confined to bed) 2430.096 Calculation Used for Recommendations [facility] Nutrition Intervention Teaching Recipient Patient Learning Readiness Good Teaching Methods Discussion Handout Response to Teaching Verbalize understanding Education Handouts Provided CHO Counting for people with DM. Barriers to Learning No Barriers RD phone number provided Yes Patient aware of follow up options Yes Goal #1 Blood Sugar control Goal #2 Adhere to CHO control diet Anticipated Discharge Needs: CHO controlled diet Revisit per MD consult or patient Sign Off request:
[2018-02-04] MEDS: TYLENOL PO PRN (17:35)
[2018-02-05] MEDS: HumuLIN R SUB-Q SCH ×4 (00:44→17:40)
[2018-02-05 03:22] LABS: Hematocrit 41.1 % (35.5-45.6); Hemoglobin 13.7 gm/dl (11.8-15.2); Mean Corpuscular HGB Conc 33 % (32-34); Mean Corpuscular Hemoglobin 29 pg (28-32); Mean Corpuscular Volume 86 fl (84-94); Red Blood Count 4.77 M/mm3 (3.65-5.03); Red Cell Distribution Width 14.8 % (13.2-15.2)
[2018-02-05 03:41] LABS: Platelet Count 84 K/mm3 (140-440)
[2018-02-05 03:54] LABS: BUN/Creatinine Ratio 13; Blood Urea Nitrogen 8 mg/dL (9-20); Calcium 8.1 mg/dL (8.4-10.2); Hemolysis Index 23
--- NOTE | 2018-02-05 07:47 | Progress Note ---
Assessment and Plan Assessment and plan: Patient is a 27-year-old man with history of dyslipidemia who presented with abdominal pains and constipation. He was found to have new onset DM with DKA and pancreatitis Acute severe pancreatitis: advance diet, pain control New onset DM with DKA: anion gap closed, will d/c insulin drip, use SSI instead of long acting because NPO but advancing diet now Suspect secondary to Hyperlipidemia, but rule out other sources Leukocytosis and Sinus tachycardia, SIRS with organ dysfunction, poa: treat the underlying condition possible transfer out of ICU and start long acting, will d/w CCM CCT 31 minutes History Interval history: Patient was seen and examined. Follow-up on current diagnosis abdominal pains, still improved. Overnight uneventful. Patient denies any chest pain, shortness breath, nausea/vomiting or severe headaches. Imaging, nursing note, chart, labs and old chart reviewed. Discussed with patient. Hospitalist Physical - Physical exam Narrative exam: Gen: WDWN, NAD, Awake, Alert, Orientated HEENT: NCAT, EOMI, PERRL, OP Clear Neck: supple, no adenopathy, no thyromegaly, no JVD CVS/Heart: RRR, normal S1S2, pulses present bilaterally Chest/Lungs: CTA B, Symmetrical chest expansion, good air entry bilaterally GI/Abdomen: soft, epigastric tenderness, good bowel sounds, no guarding or rebound /Bladder: no suprapubic tenderness, no CVA or paraspinal tenderness Extermity/Skin: no c/c/e, no obvious rash MSK: FROM x 4 Neuro: CN 2-12 grossly intact, no new focal deficits Psych: calm - Constitutional Vitals: Temp Pulse Resp BP Pulse Ox 99.3 F 105 H 21 114/70 102 H 02/04/18 07:59 02/05/18 06:00 02/05/18 06:00 02/05/18 06:00 02/05/18 04:00 General appearance: Present: well-nourished Results - Labs CBC & Chem 7: 02/05/18 02:31 02/05/18 02:31 Labs: Laboratory Last Values WBC 5.7 K/mm3 (4.5-11.0) 02/05/18 02:31 RBC 4.77 M/mm3 (3.65-5.03) 02/05/18 02:31 Hgb 13.7 gm/dl (11.8-15.2) D 02/05/18 02:31 Hct 41.1 % (35.5-45.6) D 02/05/18 02:31 MCV 86 fl (84-94) 02/05/18 02:31 MCH 29 pg (28-32) 02/05/18 02:31 MCHC 33 % (32-34) 02/05/18 02:31 RDW 14.8 % (13.2-15.2) 02/05/18 02:31 Plt Count 84 K/mm3 (140-440) L 02/05/18 02:31 Lymph % (Auto) 8.8 % (13.4-35.0) L 02/03/18 04:43 [place] % (Auto) 6.5 % (0.0-7.3) 02/03/18 04:43 Eos % (Auto) 0.0 % (0.0-4.3) 02/03/18 04:43 Baso % (Auto) 0.6 % (0.0-1.8) 02/03/18 04:43 Lymph # 1.4 K/mm3 (1.2-5.4) 02/03/18 04:43 [place] # 1.0 K/mm3 (0.0-0.8) H 02/03/18 04:43 Eos # 0.0 K/mm3 (0.0-0.4) 02/03/18 04:43 Baso # 0.1 K/mm3 (0.0-0.1) 02/03/18 04:43 Add Manual Diff Complete 02/02/18 11:47 Total Counted 100 02/02/18 11:47 Seg Neutrophils % 84.1 % (40.0-70.0) H 02/03/18 04:43 Seg Neuts % (Manual) 80.0 % (40.0-70.0) H 02/02/18 11:47 Band Neutrophils % 10.0 % 02/02/18 11:47 Lymphocytes % (Manual) 6.0 % (13.4-35.0) L 02/02/18 11:47 Reactive Lymphs % (Man) 0 % 02/02/18 11:47 Monocytes % (Manual) 3.0 % (0.0-7.3) 02/02/18 11:47 Eosinophils % (Manual) 0 % (0.0-4.3) 02/02/18 11:47 Basophils % (Manual) 0 % (0.0-1.8) 02/02/18 11:47 Metamyelocytes % 1.0 % 02/02/18 11:47 Myelocytes % 0 % 02/02/18 11:47 Promyelocytes % 0 % 02/02/18 11:47 Blast Cells % 0 % 02/02/18 11:47 Nucleated RBC % Not Reportable 02/02/18 11:47 Seg Neutrophils # 13.2 K/mm3 (1.8-7.7) H 02/03/18 04:43 Seg Neutrophils # Man 16.2 K/mm3 (1.8-7.7) H 02/02/18 11:47 Band Neutrophils # 2.0 K/mm3 02/02/18 11:47 Lymphocytes # (Manual) 1.2 K/mm3 (1.2-5.4) 02/02/18 11:47 Abs React Lymphs (Man) 0.0 K/mm3 02/02/18 11:47 Monocytes # (Manual) 0.6 K/mm3 (0.0-0.8) 02/02/18 11:47 Eosinophils # (Manual) 0.0 K/mm3 (0.0-0.4) 02/02/18 11:47 Basophils # (Manual) 0.0 K/mm3 (0.0-0.1) 02/02/18 11:47 Metamyelocytes # 0.2 K/mm3 02/02/18 11:47 Myelocytes # 0.0 K/mm3 02/02/18 11:47 Promyelocytes # 0.0 K/mm3 02/02/18 11:47 Blast Cells # 0.0 K/mm3 02/02/18 11:47 WBC Morphology Not Reportable 02/02/18 11:47 Hypersegmented Neuts Not Reportable 02/02/18 11:47 Hyposegmented Neuts Not Reportable 02/02/18 11:47 Hypogranular Neuts Not Reportable 02/02/18 11:47 Smudge Cells Not Reportable 02/02/18 11:47 Toxic Granulation Not Reportable 02/02/18 11:47 Toxic Vacuolation Not Reportable 02/02/18 11:47 Dohle Bodies Not Reportable 02/02/18 11:47 Pelger-Huet Anomaly Not Reportable 02/02/18 11:47 Ariadna Rods Not Reportable 02/02/18 11:47 Platelet Estimate Appears normal 02/02/18 11:47 Clumped Platelets Not Reportable 02/02/18 11:47 Plt Clumps, EDTA Not Reportable 02/02/18 11:47 Large Platelets Not Reportable 02/02/18 11:47 Giant Platelets Not Reportable 02/02/18 11:47 Platelet Satelliting Not Reportable 02/02/18 11:47 Plt Morphology Comment Not Reportable 02/02/18 11:47 RBC Morphology Not Reportable 02/02/18 11:47 Dimorphic RBCs Not Reportable 02/02/18 11:47 Polychromasia Not Reportable 02/02/18 11:47 Hypochromasia Not Reportable 02/02/18 11:47 Poikilocytosis Not Reportable 02/02/18 11:47 Anisocytosis 1+ 02/02/18 11:47 Microcytosis Not Reportable 02/02/18 11:47 Macrocytosis Not Reportable 02/02/18 11:47 Spherocytes Not Reportable 02/02/18 11:47 Pappenheimer Bodies Not Reportable 02/02/18 11:47 Sickle Cells Not Reportable 02/02/18 11:47 Target Cells Not Reportable 02/02/18 11:47 Tear Drop Cells Not Reportable 02/02/18 11:47 Ovalocytes 1+ 02/02/18 11:47 Helmet Cells Not Reportable 02/02/18 11:[address] Bodies Not Reportable 02/02/18 11:47 [place] Rings Not Reportable 02/02/18 11:47 [place] Cells 1+ 02/02/18 11:47 Bite Cells Not Reportable 02/02/18 11:47 Crenated Cell Not Reportable 02/02/18 11:47 Elliptocytes Not Reportable 02/02/18 11:47 Acanthocytes (Spur) Not Reportable 02/02/18 11:47 Rouleaux Not Reportable 02/02/18 11:47 Hemoglobin C Crystals Not Reportable 02/02/18 11:47 Schistocytes Not Reportable 02/02/18 11:47 Malaria parasites Not Reportable 02/02/18 11:47 [place] Bodies Not Reportable 02/02/18 11:47 Hem Pathologist Commnt No 02/02/18 11:47 Sodium 132 mmol/L (137-145) L 02/05/18 02:31 Potassium 3.7 mmol/L (3.6-5.0) 02/05/18 02:31 Chloride 100.0 mmol/L (98-107) 02/05/18 02:31 Carbon Dioxide 21 mmol/L (22-30) L 02/05/18 02:31 Anion Gap 15 mmol/L 02/05/18 02:31 BUN 8 mg/dL (9-20) L 02/05/18 02:31 Creatinine 0.6 mg/dL (0.8-1.5) L 02/05/18 02:31 Estimated GFR > 60 ml/min 02/05/18 02:31 BUN/Creatinine Ratio 13 % 02/05/18 02:31 Glucose 203 mg/dL (75-100) H 02/05/18 02:31 POC Glucose 196 (70-105) H 02/05/18 06:18 Calcium 8.1 mg/dL (8.4-10.2) L 02/05/18 02:31 Phosphorus 3.88 mg/dL (2.5-4.5) 02/02/18 14:17 Magnesium 1.70 mg/dL (1.7-2.3) 02/05/18 02:31 Total Bilirubin 0.60 mg/dL (0.1-1.2) 02/03/18 04:43 AST 23 units/L (5-40) 02/03/18 04:43 ALT 18 units/L (7-56) 02/03/18 04:43 Alkaline Phosphatase 43 units/L (35-129) 02/03/18 04:43 Total Protein 5.7 g/dL (6.3-8.2) L 02/03/18 04:43 Albumin 3.2 g/dL (3.9-5) L 02/03/18 04:43 Albumin/Globulin Ratio 1.3 % 02/03/18 04:43 Triglycerides 301.2 mg/dL (2-149) H 02/02/18 14:17 Cholesterol 27.6 mg/dL (50-199) L 02/02/18 14:17 LDL Cholesterol Direct 0 mg/dL (50-130) L 02/02/18 14:17 HDL Cholesterol 13.2 mg/dL (40-59) L 02/02/18 14:17 Cholesterol/HDL Ratio 2.00 % 02/02/18 14:17 Amylase 448.8 units/L (27-131) H 02/02/18 14:17 Lipase 141 units/L (13-60) H 02/03/18 04:43 Urine Color Yellow (Yellow) 02/02/18 12:26 Urine Turbidity Clear (Clear) 02/02/18 12:26 Urine pH 6.0 (5.0-7.0) 02/02/18 12:26 Ur Specific [place] 1.030 (1.003-1.030) 02/02/18 12:26 Urine Protein 30 mg/dl mg/dL (Negative) 02/02/18 12:26 Urine Glucose (UA) >=500 mg/dL (Negative) 02/02/18 12:26 Urine Ketones 80 mg/dL (Negative) 02/02/18 12:26 Urine Blood Sm (Negative) 02/02/18 12:26 Urine Nitrite Neg (Negative) 02/02/18 12:26 Urine Bilirubin Neg (Negative) 02/02/18 12:26 Urine Urobilinogen < 2.0 mg/dL (<2.0) 02/02/18 12:26 Ur Leukocyte Esterase Neg (Negative) 02/02/18 12:26 Urine WBC (Auto) < 1.0 /HPF (0.0-6.0) 02/02/18 12:26 Urine RBC (Auto) 4.0 /HPF (0.0-6.0) 02/02/18 12:26 Urine Opiates Screen Presumptive negative 02/02/18 17:12 Urine Methadone Screen Presumptive negative 02/02/18 17:12 Ur Barbiturates Screen Presumptive negative 02/02/18 17:12 Ur Phencyclidine Scrn Presumptive negative 02/02/18 17:12 Ur Amphetamines Screen Presumptive negative 02/02/18 17:12 U Benzodiazepines Scrn Presumptive negative 02/02/18 17:12 Urine Cocaine Screen Presumptive negative 02/02/18 17:12 U Marijuana (THC) Screen Presumptive negative 02/02/18 17:12 Drugs of Abuse Note Disclamer 02/02/18 17:12 Nutrition/Malnutrition Assess - Dietary Evaluation Nutrition/Malnutrition Findings: Nutrition Notes Start: 02/03/18 10:01 Freq: Status: Active Protocol: Document 02/03/18 10:01 TW (Rec: 02/03/18 10:11 TW [id number]) Co-Sign 02/03/18 10:01 PATI Nutrition Notes Need for Assessment generated from: Education Initial or Follow up Assessment Current Diagnoses Diabetes Current Diet NPO Labs/Tests Reviewed. Medications Reviewed. Height 6 ft 2 in Weight 98.9 kg [place] Body Weight (lbs) 190.0 BMI 28.0 WEIGHT STATUS OVERWEIGHT Subjective/Other Information MD consult for DKA diet education. Pt stated he is eating well and is aware of high BG. Provided DKA education and handout. Burn Absent Trauma Absent #1 Nutrition Diagnoses Food and nutrition-related knowledge deficit Etiology limited exposure to DKA education As Evidenced by Signs and Symptoms elevated blood sugar Is patient on ventilator? No Is Patient Ambulatory and/or Out of Bed No REE-([facility]-confined to bed) 2430.096 Calculation Used for Recommendations [facility] Nutrition Intervention Teaching Recipient Patient Learning Readiness Good Teaching Methods Discussion Handout Response to Teaching Verbalize understanding Education Handouts Provided CHO Counting for people with DM. Barriers to Learning No Barriers RD phone number provided Yes Patient aware of follow up options Yes Goal #1 Blood Sugar control Goal #2 Adhere to CHO control diet Anticipated Discharge Needs: CHO controlled diet Revisit per MD consult or patient Sign Off request:
[2018-02-05] MEDS: LOVENOX SUB-Q SCH (09:04)
[2018-02-05] MEDS: PEPCID IV SCH ×2 (09:04→21:23)
[2018-02-05] MEDS: SODIUM CHLORIDE FLUSH SYRINGE 10 ML IV SCH ×2 (09:05→21:23)
[2018-02-05] MEDS: TYLENOL PO PRN (11:59)
--- NOTE | 2018-02-05 12:42 | Gastroenterology Progress Note ---
Assessment and Plan 1. Acute idiopathic pancreatitis - clinically improving with less abd pain and tolerating po. no stones on imaging and liver enzymes normal on admission. etiology unclear but possibly from elevated triglycerides (although not significantly elevated or range expected to cause AP); r/o autoimmune etiologies/further work-up as outpatient. Will sign off, please call as needed or with questions. Follow up in GI clinic 2-3 weeks after d/c. Subjective Date of service: 02/05/18 Principal diagnosis: pancreatitis, DKA Interval history: pt seen and examined. reports improvement in abdominal pain. tolerating po. Objective - Constitutional Vitals: Temp Pulse Resp BP Pulse Ox 100.3 F H 108 H 31 H 122/75 94 02/05/18 12:00 02/05/18 10:00 02/05/18 10:00 02/05/18 10:00 02/05/18 09:00 General appearance: no acute distress - Respiratory Respiratory effort: normal Respiratory: bilateral: CTA - Cardiovascular Rhythm: regular Heart Sounds: Present: S1 & S2 - Gastrointestinal General gastrointestinal: Present: soft, non-tender, non-distended - Neurologic Neurological: alert and oriented x3 - Psychiatric Psychiatric: appropriate mood/affect - Labs CBC & Chem 7: 02/05/18 02:31 02/05/18 02:31 Labs: Laboratory Results - last 24 hr 02/04/18 02/04/18 02/05/18 13:10 17:36 00:34 WBC RBC Hgb Hct MCV MCH MCHC RDW Plt Count Sodium 132 L Potassium 3.9 Chloride 100.5 Carbon Dioxide 18 L Anion Gap 17 BUN 8 L Creatinine 0.6 L Estimated GFR > 60 BUN/Creatinine Ratio 13 Glucose 171 H POC Glucose 201 H 200 H Calcium 8.0 L Magnesium 02/05/18 02/05/18 02/05/18 02:31 02:31 06:18 WBC 5.7 RBC 4.77 Hgb 13.7 D Hct 41.1 D MCV 86 MCH 29 MCHC 33 RDW 14.8 Plt Count 84 L Sodium 132 L Potassium 3.7 Chloride 100.0 Carbon Dioxide 21 L Anion Gap 15 BUN 8 L Creatinine 0.6 L Estimated GFR > 60 BUN/Creatinine Ratio 13 Glucose 203 H POC Glucose 196 H Calcium 8.1 L Magnesium 1.70 02/05/18 11:28 WBC RBC Hgb Hct MCV MCH MCHC RDW Plt Count Sodium Potassium Chloride Carbon Dioxide Anion Gap BUN Creatinine Estimated GFR BUN/Creatinine Ratio Glucose POC Glucose 257 H Calcium Magnesium
--- NOTE | 2018-02-05 13:49 | Progress Note ---
Assessment and Plan 27 y/o male with DKA and acute pancreatitis, exact etiologies unknown. 1. Will start long acting insulin 2. Advance diet 3. Transition to floor 4. Will sign off once out of unit. Subjective Date of service: 02/05/18 Principal diagnosis: pancreatitis, DKA Interval history: Clinically much improved. Tolerating diet so can advance. Numbers are better. Objective - Constitutional Vitals: Vital Signs - 12hr 02/05/18 02/05/18 02/05/18 02:00 03:00 04:00 Temperature Pulse Rate 99 H 105 H 102 H Pulse Rate [ Right Dorsalis Pedis] Respiratory 19 26 H 22 Rate Blood Pressure 113/63 128/83 122/79 O2 Sat by Pulse 94 96 96 Oximetry 02/05/18 02/05/18 02/05/18 05:00 06:00 07:00 Temperature Pulse Rate 106 H 105 H 108 H Pulse Rate [ Right Dorsalis Pedis] Respiratory 18 21 28 H Rate Blood Pressure 113/72 114/70 124/80 O2 Sat by Pulse Oximetry 02/05/18 02/05/18 02/05/18 08:00 09:00 10:00 Temperature 99 F Pulse Rate 109 H 115 H 108 H Pulse Rate [ 109 H Right Dorsalis Pedis] Respiratory 20 23 31 H Rate Blood Pressure 137/89 136/97 122/75 O2 Sat by Pulse 96 94 Oximetry 02/05/18 02/05/18 02/05/18 11:00 12:00 13:00 Temperature 100.3 F H Pulse Rate 103 H 107 H 110 H Pulse Rate [ 107 H Right Dorsalis Pedis] Respiratory 26 H 16 18 Rate Blood Pressure 133/81 116/77 115/85 O2 Sat by Pulse 97 97 Oximetry - Labs CBC & Chem 7: 02/05/18 02:31 02/05/18 02:31 Labs: Abnormal lab results 02/04/18 02/04/18 02/05/18 Range/Units 13:10 17:36 00:34 Plt Count (140-440) K/mm3 Sodium 132 L (137-145) mmol/L Carbon Dioxide 18 L (22-30) mmol/L BUN 8 L (9-20) mg/dL Creatinine 0.6 L (0.8-1.5) mg/dL Glucose 171 H (75-100) mg/dL POC Glucose 201 H 200 H (70-105) Calcium 8.0 L (8.4-10.2) mg/dL 02/05/18 02/05/18 02/05/18 Range/Units 02:31 02:31 06:18 Plt Count 84 L (140-440) K/mm3 Sodium 132 L (137-145) mmol/L Carbon Dioxide 21 L (22-30) mmol/L BUN 8 L (9-20) mg/dL Creatinine 0.6 L (0.8-1.5) mg/dL Glucose 203 H (75-100) mg/dL POC Glucose 196 H (70-105) Calcium 8.1 L (8.4-10.2) mg/dL 02/05/18 Range/Units 11:28 Plt Count (140-440) K/mm3 Sodium (137-145) mmol/L Carbon Dioxide (22-30) mmol/L BUN (9-20) mg/dL Creatinine (0.8-1.5) mg/dL Glucose (75-100) mg/dL POC Glucose 257 H (70-105) Calcium (8.4-10.2) mg/dL Medications & Allergies - Medications Allergies/Adverse Reactions: Allergies No Known Allergies Allergy (Unverified 02/02/18 09:56) Home Medications: Home Medications Medication Instructions Recorded Confirmed Last Taken Type No Known Home Medications [No 02/02/18 02/02/18 Unknown History Reported Home Medications] Active Medications: Generic Name Dose Route Start Last Admin Trade Name Freq PRN Reason Stop Dose Admin Acetaminophen 650 mg 02/02/18 16:50 02/05/18 11:59 Tylenol PO 650 mg Q4H PRN Administration Pain MILD(1-3)/Fever >100.5/RODRIGUEZ Dextrose 0 ml 02/02/18 16:57 D50w (25gm) Syringe IV PRN PRN Hypoglycemia Dextrose 50 ml 02/04/18 12:08 D50w (25gm) Syringe IV PRN PRN Hypoglycemia Enoxaparin Sodium 40 mg 02/03/18 12:00 02/05/18 09:04 Lovenox SUB-Q 40 mg QDAY@1000 BRAYDEN Administration Famotidine 20 mg 02/03/18 12:00 02/05/18 09:04 Pepcid IV 20 mg BID BRAYDEN Administration Hydromorphone HCl 1 mg 02/02/18 16:50 02/04/18 22:12 Dilaudid IV 1 mg Q3H PRN Administration Pain, Moderate (4-6) Sodium Chloride 1,000 mls @ 999 mls/hr 02/02/18 18:00 02/02/18 22:22 Nacl 0.9% 1000 Ml IV 02/05/18 19:01 999 mls/hr DIRECT BRAYDEN Administration Insulin Human Regular 0 units 02/04/18 13:00 02/05/18 11:58 Humulin R SUB-Q 6 units Q6HR BRAYDEN Administration Protocol Ondansetron HCl 4 mg 02/02/18 16:50 Zofran IV Q8H PRN Nausea And Vomiting Sodium Chloride 10 ml 02/02/18 22:00 02/05/18 09:05 Sodium Chloride Flush Syringe 10 Ml IV 10 ml BID BRAYDEN Administration Sodium Chloride 10 ml 02/02/18 16:50 Sodium Chloride Flush Syringe 10 Ml IV PRN PRN LINE FLUSH
[2018-02-05] MEDS: DILAUDID IV PRN (19:37)
[2018-02-06] MEDS: HumuLIN R SUB-Q SCH ×4 (00:09→17:23)
[2018-02-06 02:51] LABS: Hematocrit 39.6 % (35.5-45.6); Hemoglobin 13.6 gm/dl (11.8-15.2); Mean Corpuscular HGB Conc 34 % (32-34); Mean Corpuscular Hemoglobin 29 pg (28-32); Mean Corpuscular Volume 85 fl (84-94); Platelet Count 101 K/mm3 (140-440); Red Blood Count 4.66 M/mm3 (3.65-5.03); Red Cell Distribution Width 14.5 % (13.2-15.2)
[2018-02-06 03:12] LABS: BUN/Creatinine Ratio 15; Blood Urea Nitrogen 9 mg/dL (9-20); Calcium 8.2 mg/dL (8.4-10.2); Hemolysis Index 9
--- NOTE | 2018-02-06 09:29 | Progress Note ---
Assessment and Plan DKA. No longer on insulin drip and started on clear liquids. Blood sugar slightly elevated, AG now normal Acute pancreatitis. Again, tolerating clear liquids. No pain. No vomiting Hypokalemia. Mild, needs replacement Recommendations Continue gentle fluids. Advance by mouth diet as tolerated Adjust up long-acting insulin, monitor sliding scale,avois hypoglicemia.Reviewed with PharmD K+ 40 meq replacement Probably can be transferred out from pulmonary standpoint DVT prophylaxis Discussed with patient in detail. All questions answered. Subjective Date of service: 02/06/18 Principal diagnosis: pancreatitis, DKA Interval history: No events overnight. No chest complaints. Waiting, eager to be transfered out Objective Vital Signs - 12hr 02/05/18 02/05/18 02/05/18 22:00 23:00 23:22 Temperature Pulse Rate 103 H 101 H 101 H Pulse Rate [ Right Dorsalis Pedis] Respiratory 20 20 24 Rate Blood Pressure 119/82 122/82 122/82 O2 Sat by Pulse 97 94 96 Oximetry 02/05/18 02/06/18 02/06/18 23:25 00:00 01:00 Temperature 100.4 F H Pulse Rate 104 H 105 H Pulse Rate [ 109 H Right Dorsalis Pedis] Respiratory 21 26 H Rate Blood Pressure 128/79 124/79 O2 Sat by Pulse 96 97 Oximetry 02/06/18 02/06/18 02/06/18 02:00 03:00 03:16 Temperature 100.3 F H Pulse Rate 108 H 102 H Pulse Rate [ Right Dorsalis Pedis] Respiratory 21 19 Rate Blood Pressure 104/63 125/83 O2 Sat by Pulse 97 Oximetry 02/06/18 02/06/18 02/06/18 04:00 05:00 06:00 Temperature Pulse Rate 100 H 104 H 106 H Pulse Rate [ 105 H Right Dorsalis Pedis] Respiratory 22 24 24 Rate Blood Pressure 101/59 125/80 126/84 O2 Sat by Pulse 93 96 96 Oximetry Constitutional: no acute distress Eyes: non-icteric ENT: oropharynx moist Neck: supple, no lymphadenopathy, no JVD Effort: no acute distress Ascultation: Bilateral: clear Cardiovascular: regular rate and rhythm Gastrointestinal: normoactive bowel sounds, non-distended Integumentary: normal Extremities: no cyanosis, no cyanosis, no cyanosis Neurologic: normal mental status, non-focal exam Psychiatric: mood appropriate, affect normal CBC and BMP: 02/06/18 02:09 02/06/18 02:09 Abnormal lab findings: Abnormal Labs 02/02/18 02/02/18 02/02/18 11:47 14:17 16:58 WBC 20.3 H RBC 5.97 H Hgb Hct 51.5 H MCHC Plt Count Lymph % (Auto) Sampson # Seg Neutrophils % Seg Neuts % (Manual) 80.0 H Lymphocytes % (Manual) 6.0 L Seg Neutrophils # Seg Neutrophils # Man 16.2 H Sodium Potassium Chloride 96 L Carbon Dioxide 12 L BUN Creatinine Glucose 390 H POC Glucose 322 H Calcium Magnesium 1.64 L AST ALT Total Protein Albumin Triglycerides 301.2 H Cholesterol 27.6 L LDL Cholesterol Direct 0 L HDL Cholesterol 13.2 L Amylase 448.8 H Lipase > 300 H 02/02/18 02/02/18 02/02/18 19:31 20:19 20:34 WBC RBC Hgb Hct MCHC Plt Count Lymph % (Auto) Sampson # Seg Neutrophils % Seg Neuts % (Manual) Lymphocytes % (Manual) Seg Neutrophils # Seg Neutrophils # Man Sodium 129 L D Potassium Chloride 97.2 L Carbon Dioxide 11 L BUN Creatinine 0.5 L Glucose 293 H POC Glucose 281 H 246 H Calcium 7.1 L D Magnesium AST < 5 L ALT < 5 L Total Protein 5.0 L D Albumin 3.2 L Triglycerides Cholesterol LDL Cholesterol Direct HDL Cholesterol Amylase Lipase 02/02/18 02/02/18 02/02/18 21:11 21:32 22:37 WBC RBC Hgb Hct MCHC Plt Count Lymph % (Auto) Sampson # Seg Neutrophils % Seg Neuts % (Manual) Lymphocytes % (Manual) Seg Neutrophils # Seg Neutrophils # Man Sodium 129 L Potassium Chloride 97.3 L Carbon Dioxide 12 L BUN Creatinine 0.5 L Glucose 277 H POC Glucose 246 H 262 H Calcium 2.4 L* D Magnesium AST ALT Total Protein Albumin Triglycerides Cholesterol LDL Cholesterol Direct HDL Cholesterol Amylase Lipase 02/02/18 02/02/18 02/03/18 23:01 23:29 00:25 WBC RBC Hgb Hct MCHC Plt Count Lymph % (Auto) Sampson # Seg Neutrophils % Seg Neuts % (Manual) Lymphocytes % (Manual) Seg Neutrophils # Seg Neutrophils # Man Sodium 130 L Potassium Chloride Carbon Dioxide 11 L BUN Creatinine 0.7 L Glucose 268 H POC Glucose 226 H 229 H Calcium 7.0 L D Magnesium AST ALT Total Protein Albumin Triglycerides Cholesterol LDL Cholesterol Direct HDL Cholesterol Amylase Lipase 02/03/18 02/03/18 02/03/18 00:58 01:37 02:33 WBC RBC Hgb Hct MCHC Plt Count Lymph % (Auto) Sampson # Seg Neutrophils % Seg Neuts % (Manual) Lymphocytes % (Manual) Seg Neutrophils # Seg Neutrophils # Man Sodium 132 L Potassium Chloride Carbon Dioxide 12 L BUN Creatinine 0.5 L Glucose 240 H POC Glucose 226 H 221 H Calcium 6.8 L Magnesium AST ALT Total Protein Albumin Triglycerides Cholesterol LDL Cholesterol Direct HDL Cholesterol Amylase Lipase 02/03/18 02/03/18 02/03/18 04:08 04:43 04:43 WBC 15.7 H RBC 5.88 H Hgb 18.1 H Hct 50.9 H MCHC 36 H Plt Count Lymph % (Auto) 8.8 L Sampson # 1.0 H Seg Neutrophils % 84.1 H Seg Neuts % (Manual) Lymphocytes % (Manual) Seg Neutrophils # 13.2 H Seg Neutrophils # Man Sodium 135 L Potassium Chloride Carbon Dioxide 11 L BUN 8 L Creatinine 0.7 L Glucose 271 H POC Glucose 209 H Calcium 7.0 L Magnesium AST ALT Total Protein 5.7 L Albumin 3.2 L Triglycerides Cholesterol LDL Cholesterol Direct HDL Cholesterol Amylase Lipase 141 H 02/03/18 02/03/18 02/03/18 04:56 05:59 07:05 WBC RBC Hgb Hct MCHC Plt Count Lymph % (Auto) Sampson # Seg Neutrophils % Seg Neuts % (Manual) Lymphocytes % (Manual) Seg Neutrophils # Seg Neutrophils # Man Sodium Potassium Chloride Carbon Dioxide BUN Creatinine Glucose POC Glucose 242 H 200 H 171 H Calcium Magnesium AST ALT Total Protein Albumin Triglycerides Cholesterol LDL Cholesterol Direct HDL Cholesterol Amylase Lipase 02/03/18 02/03/18 02/03/18 08:09 09:02 10:11 WBC RBC Hgb Hct MCHC Plt Count Lymph % (Auto) Sampson # Seg Neutrophils % Seg Neuts % (Manual) Lymphocytes % (Manual) Seg Neutrophils # Seg Neutrophils # Man Sodium Potassium Chloride Carbon Dioxide BUN Creatinine Glucose POC Glucose 209 H 226 H 204 H Calcium Magnesium AST ALT Total Protein Albumin Triglycerides Cholesterol LDL Cholesterol Direct HDL Cholesterol Amylase Lipase 02/03/18 02/03/18 02/03/18 11:11 12:09 13:18 WBC RBC Hgb Hct MCHC Plt Count Lymph % (Auto) Sampson # Seg Neutrophils % Seg Neuts % (Manual) Lymphocytes % (Manual) Seg Neutrophils # Seg Neutrophils # Man Sodium Potassium Chloride Carbon Dioxide BUN Creatinine Glucose POC Glucose 185 H 164 H 160 H Calcium Magnesium AST ALT Total Protein Albumin Triglycerides Cholesterol LDL Cholesterol Direct HDL Cholesterol Amylase Lipase 02/03/18 02/03/18 02/03/18 14:31 15:32 16:58 WBC RBC Hgb Hct MCHC Plt Count Lymph % (Auto) Sampson # Seg Neutrophils % Seg Neuts % (Manual) Lymphocytes % (Manual) Seg Neutrophils # Seg Neutrophils # Man Sodium Potassium Chloride Carbon Dioxide BUN Creatinine Glucose POC Glucose 190 H 170 H 145 H Calcium Magnesium AST ALT Total Protein Albumin Triglycerides Cholesterol LDL Cholesterol Direct HDL Cholesterol Amylase Lipase 02/03/18 02/03/18 02/03/18 17:23 18:19 20:09 WBC RBC Hgb Hct MCHC Plt Count Lymph % (Auto) Sampson # Seg Neutrophils % Seg Neuts % (Manual) Lymphocytes % (Manual) Seg Neutrophils # Seg Neutrophils # Man Sodium 135 L Potassium Chloride 107.5 H Carbon Dioxide 15 L BUN 7 L Creatinine 0.6 L Glucose 173 H POC Glucose 171 H 157 H Calcium 7.2 L Magnesium AST ALT Total Protein Albumin Triglycerides Cholesterol LDL Cholesterol Direct HDL Cholesterol Amylase Lipase 02/03/18 02/03/18 02/03/18 20:52 22:12 23:15 WBC RBC Hgb Hct MCHC Plt Count Lymph % (Auto) Sampson # Seg Neutrophils % Seg Neuts % (Manual) Lymphocytes % (Manual) Seg Neutrophils # Seg Neutrophils # Man Sodium Potassium Chloride Carbon Dioxide BUN Creatinine Glucose POC Glucose 144 H 156 H 153 H Calcium Magnesium AST ALT Total Protein Albumin Triglycerides Cholesterol LDL Cholesterol Direct HDL Cholesterol Amylase Lipase 02/04/18 02/04/18 02/04/18 00:26 00:42 01:24 WBC RBC Hgb Hct MCHC Plt Count Lymph % (Auto) Sampson # Seg Neutrophils % Seg Neuts % (Manual) Lymphocytes % (Manual) Seg Neutrophils # Seg Neutrophils # Man Sodium 133 L Potassium Chloride Carbon Dioxide 17 L BUN 8 L Creatinine 0.5 L Glucose 158 H POC Glucose 139 H 126 H Calcium 7.2 L Magnesium AST ALT Total Protein Albumin Triglycerides Cholesterol LDL Cholesterol Direct HDL Cholesterol Amylase Lipase 02/04/18 02/04/18 02/04/18 02:16 03:33 04:54 WBC RBC Hgb Hct MCHC Plt Count Lymph % (Auto) Sampson # Seg Neutrophils % Seg Neuts % (Manual) Lymphocytes % (Manual) Seg Neutrophils # Seg Neutrophils # Man Sodium 134 L Potassium Chloride Carbon Dioxide 18 L BUN 8 L Creatinine 0.6 L Glucose 119 H POC Glucose 159 H 113 H Calcium 7.6 L Magnesium AST ALT Total Protein Albumin Triglycerides Cholesterol LDL Cholesterol Direct HDL Cholesterol Amylase Lipase 02/04/18 02/04/18 02/04/18 04:57 07:49 09:30 WBC RBC Hgb Hct MCHC Plt Count Lymph % (Auto) Sampson # Seg Neutrophils % Seg Neuts % (Manual) Lymphocytes % (Manual) Seg Neutrophils # Seg Neutrophils # Man Sodium Potassium Chloride Carbon Dioxide BUN Creatinine Glucose POC Glucose 106 H 151 H 177 H Calcium Magnesium AST ALT Total Protein Albumin Triglycerides Cholesterol LDL Cholesterol Direct HDL Cholesterol Amylase Lipase 02/04/18 02/04/18 02/04/18 10:54 12:39 13:10 WBC RBC Hgb Hct MCHC Plt Count Lymph % (Auto) Sampson # Seg Neutrophils % Seg Neuts % (Manual) Lymphocytes % (Manual) Seg Neutrophils # Seg Neutrophils # Man Sodium 132 L Potassium Chloride Carbon Dioxide 18 L BUN 8 L Creatinine 0.6 L Glucose 171 H POC Glucose 185 H 155 H Calcium 8.0 L Magnesium AST ALT Total Protein Albumin Triglycerides Cholesterol LDL Cholesterol Direct HDL Cholesterol Amylase Lipase 02/04/18 02/05/18 02/05/18 17:36 00:34 02:31 WBC RBC Hgb Hct MCHC Plt Count 84 L Lymph % (Auto) Sampson # Seg Neutrophils % Seg Neuts % (Manual) Lymphocytes % (Manual) Seg Neutrophils # Seg Neutrophils # Man Sodium Potassium Chloride Carbon Dioxide BUN Creatinine Glucose POC Glucose 201 H 200 H Calcium Magnesium AST ALT Total Protein Albumin Triglycerides Cholesterol LDL Cholesterol Direct HDL Cholesterol Amylase Lipase 02/05/18 02/05/18 02/05/18 02:31 06:18 11:28 WBC RBC Hgb Hct MCHC Plt Count Lymph % (Auto) Sampson # Seg Neutrophils % Seg Neuts % (Manual) Lymphocytes % (Manual) Seg Neutrophils # Seg Neutrophils # Man Sodium 132 L Potassium Chloride Carbon Dioxide 21 L BUN 8 L Creatinine 0.6 L Glucose 203 H POC Glucose 196 H 257 H Calcium 8.1 L Magnesium AST ALT Total Protein Albumin Triglycerides Cholesterol LDL Cholesterol Direct HDL Cholesterol Amylase Lipase 02/05/18 02/06/18 02/06/18 17:23 00:04 02:09 WBC RBC Hgb Hct MCHC Plt Count 101 L Lymph % (Auto) Sampson # Seg Neutrophils % Seg Neuts % (Manual) Lymphocytes % (Manual) Seg Neutrophils # Seg Neutrophils # Man Sodium Potassium Chloride Carbon Dioxide BUN Creatinine Glucose POC Glucose 230 H 198 H Calcium Magnesium AST ALT Total Protein Albumin Triglycerides Cholesterol LDL Cholesterol Direct HDL Cholesterol Amylase Lipase 02/06/18 02/06/18 02:09 05:11 WBC RBC Hgb Hct MCHC Plt Count Lymph % (Auto) Sampson # Seg Neutrophils % Seg Neuts % (Manual) Lymphocytes % (Manual) Seg Neutrophils # Seg Neutrophils # Man Sodium 131 L Potassium 3.2 L Chloride 95.5 L Carbon Dioxide 21 L BUN Creatinine 0.6 L Glucose 229 H POC Glucose 234 H Calcium 8.2 L Magnesium AST ALT Total Protein Albumin Triglycerides Cholesterol LDL Cholesterol Direct HDL Cholesterol Amylase Lipase
[2018-02-06] MEDS: K-DUR PO SCH ×2 (09:54→14:40)
[2018-02-06] MEDS: DILAUDID IV PRN ×3 (09:55→21:45)
[2018-02-06] MEDS: LOVENOX SUB-Q SCH (09:55)
[2018-02-06] MEDS: PEPCID PO SCH ×2 (09:55→21:33)
[2018-02-06] MEDS: SODIUM CHLORIDE FLUSH SYRINGE 10 ML IV SCH ×2 (09:58→21:47)
[2018-02-06] MEDS ORDERED: POTASSIUM CHLORIDE PO ONE (14:07)
--- NOTE | 2018-02-06 14:12 | Progress Note ---
Assessment and Plan Assessment and plan: Patient is a 27-year-old man with history of dyslipidemia who presented with abdominal pains and constipation. He was found to have new onset DM with DKA and pancreatitis Acute severe pancreatitis: advance diet, pain control New onset DM with DKA: anion gap closed, will d/c insulin drip, use SSI instead of long acting because NPO but advancing diet now Leukocytosis and Sinus tachycardia, SIRS with organ dysfunction, poa: treat the underlying condition Fevers: get blood culture, abd xr, cxr, ua, start empiric abx full code Disposition: transfer out of the icu, anticipate d/c once no fevers x 24 hours History Interval history: Patient was seen and examined. Follow-up on current diagnosis abdominal pains, improved. Overnight uneventful. Patient denies any chest pain, shortness breath, nausea/vomiting or severe headaches. Imaging, nursing note, chart, labs and old chart reviewed. Discussed with patient. New issue is fevers. Hospitalist Physical - Physical exam Narrative exam: Gen: WDWN, NAD, Awake, Alert, Orientated x 3 HEENT: NCAT, EOMI, PERRL, OP Clear Neck: supple, no adenopathy, no thyromegaly, no JVD CVS/Heart: RRR, normal S1S2, pulses present bilaterally Chest/Lungs: CTA B, Symmetrical chest expansion, good air entry bilaterally GI/Abdomen: soft, epigastric tenderness, good bowel sounds, no guarding or rebound /Bladder: no suprapubic tenderness, no CVA or paraspinal tenderness Extermity/Skin: no c/c/e, no obvious rash MSK: FROM x 4 Neuro: CN 2-12 grossly intact, no new focal deficits Psych: calm - Constitutional Vitals: Temp Pulse Resp BP Pulse Ox 100.2 F H 103 H 24 127/83 96 02/06/18 12:00 02/06/18 12:00 02/06/18 12:00 02/06/18 12:00 02/06/18 12:00 General appearance: Present: well-nourished Results - Labs CBC & Chem 7: 02/06/18 02:09 02/06/18 02:09 Labs: Laboratory Last Values WBC 7.1 K/mm3 (4.5-11.0) 02/06/18 02:09 RBC 4.66 M/mm3 (3.65-5.03) 02/06/18 02:09 Hgb 13.6 gm/dl (11.8-15.2) 02/06/18 02:09 Hct 39.6 % (35.5-45.6) 02/06/18 02:09 MCV 85 fl (84-94) 02/06/18 02:09 MCH 29 pg (28-32) 02/06/18 02:09 MCHC 34 % (32-34) 02/06/18 02:09 RDW 14.5 % (13.2-15.2) 02/06/18 02:09 Plt Count 101 K/mm3 (140-440) L 02/06/18 02:09 Lymph % (Auto) 8.8 % (13.4-35.0) L 02/03/18 04:43 [place] % (Auto) 6.5 % (0.0-7.3) 02/03/18 04:43 Eos % (Auto) 0.0 % (0.0-4.3) 02/03/18 04:43 Baso % (Auto) 0.6 % (0.0-1.8) 02/03/18 04:43 Lymph # 1.4 K/mm3 (1.2-5.4) 02/03/18 04:43 [place] # 1.0 K/mm3 (0.0-0.8) H 02/03/18 04:43 Eos # 0.0 K/mm3 (0.0-0.4) 02/03/18 04:43 Baso # 0.1 K/mm3 (0.0-0.1) 02/03/18 04:43 Add Manual Diff Complete 02/02/18 11:47 Total Counted 100 02/02/18 11:47 Seg Neutrophils % 84.1 % (40.0-70.0) H 02/03/18 04:43 Seg Neuts % (Manual) 80.0 % (40.0-70.0) H 02/02/18 11:47 Band Neutrophils % 10.0 % 02/02/18 11:47 Lymphocytes % (Manual) 6.0 % (13.4-35.0) L 02/02/18 11:47 Reactive Lymphs % (Man) 0 % 02/02/18 11:47 Monocytes % (Manual) 3.0 % (0.0-7.3) 02/02/18 11:47 Eosinophils % (Manual) 0 % (0.0-4.3) 02/02/18 11:47 Basophils % (Manual) 0 % (0.0-1.8) 02/02/18 11:47 Metamyelocytes % 1.0 % 02/02/18 11:47 Myelocytes % 0 % 02/02/18 11:47 Promyelocytes % 0 % 02/02/18 11:47 Blast Cells % 0 % 02/02/18 11:47 Nucleated RBC % Not Reportable 02/02/18 11:47 Seg Neutrophils # 13.2 K/mm3 (1.8-7.7) H 02/03/18 04:43 Seg Neutrophils # Man 16.2 K/mm3 (1.8-7.7) H 02/02/18 11:47 Band Neutrophils # 2.0 K/mm3 02/02/18 11:47 Lymphocytes # (Manual) 1.2 K/mm3 (1.2-5.4) 02/02/18 11:47 Abs React Lymphs (Man) 0.0 K/mm3 02/02/18 11:47 Monocytes # (Manual) 0.6 K/mm3 (0.0-0.8) 02/02/18 11:47 Eosinophils # (Manual) 0.0 K/mm3 (0.0-0.4) 02/02/18 11:47 Basophils # (Manual) 0.0 K/mm3 (0.0-0.1) 02/02/18 11:47 Metamyelocytes # 0.2 K/mm3 02/02/18 11:47 Myelocytes # 0.0 K/mm3 02/02/18 11:47 Promyelocytes # 0.0 K/mm3 02/02/18 11:47 Blast Cells # 0.0 K/mm3 02/02/18 11:47 WBC Morphology Not Reportable 02/02/18 11:47 Hypersegmented Neuts Not Reportable 02/02/18 11:47 Hyposegmented Neuts Not Reportable 02/02/18 11:47 Hypogranular Neuts Not Reportable 02/02/18 11:47 Smudge Cells Not Reportable 02/02/18 11:47 Toxic Granulation Not Reportable 02/02/18 11:47 Toxic Vacuolation Not Reportable 02/02/18 11:47 Dohle Bodies Not Reportable 02/02/18 11:47 Pelger-Huet Anomaly Not Reportable 02/02/18 11:47 Ariadna Rods Not Reportable 02/02/18 11:47 Platelet Estimate Appears normal 02/02/18 11:47 Clumped Platelets Not Reportable 02/02/18 11:47 Plt Clumps, EDTA Not Reportable 02/02/18 11:47 Large Platelets Not Reportable 02/02/18 11:47 Giant Platelets Not Reportable 02/02/18 11:47 Platelet Satelliting Not Reportable 02/02/18 11:47 Plt Morphology Comment Not Reportable 02/02/18 11:47 RBC Morphology Not Reportable 02/02/18 11:47 Dimorphic RBCs Not Reportable 02/02/18 11:47 Polychromasia Not Reportable 02/02/18 11:47 Hypochromasia Not Reportable 02/02/18 11:47 Poikilocytosis Not Reportable 02/02/18 11:47 Anisocytosis 1+ 02/02/18 11:47 Microcytosis Not Reportable 02/02/18 11:47 Macrocytosis Not Reportable 02/02/18 11:47 Spherocytes Not Reportable 02/02/18 11:47 Pappenheimer Bodies Not Reportable 02/02/18 11:47 Sickle Cells Not Reportable 02/02/18 11:47 Target Cells Not Reportable 02/02/18 11:47 Tear Drop Cells Not Reportable 02/02/18 11:47 Ovalocytes 1+ 02/02/18 11:47 Helmet Cells Not Reportable 02/02/18 11:47 Colon-[place] Bodies Not Reportable 02/02/18 11:47 [place] Rings Not Reportable 02/02/18 11:47 [place] Cells 1+ 02/02/18 11:47 Bite Cells Not Reportable 02/02/18 11:47 Crenated Cell Not Reportable 02/02/18 11:47 Elliptocytes Not Reportable 02/02/18 11:47 Acanthocytes (Spur) Not Reportable 02/02/18 11:47 Rouleaux Not Reportable 02/02/18 11:47 Hemoglobin C Crystals Not Reportable 02/02/18 11:47 Schistocytes Not Reportable 02/02/18 11:47 Malaria parasites Not Reportable 02/02/18 11:47 [place] Bodies Not Reportable 02/02/18 11:47 Hem Pathologist Commnt No 02/02/18 11:47 Sodium 131 mmol/L (137-145) L 02/06/18 02:09 Potassium 3.2 mmol/L (3.6-5.0) L 02/06/18 02:09 Chloride 95.5 mmol/L (98-107) L 02/06/18 02:09 Carbon Dioxide 21 mmol/L (22-30) L 02/06/18 02:09 Anion Gap 18 mmol/L 02/06/18 02:09 BUN 9 mg/dL (9-20) 02/06/18 02:09 Creatinine 0.6 mg/dL (0.8-1.5) L 02/06/18 02:09 Estimated GFR > 60 ml/min 02/06/18 02:09 BUN/Creatinine Ratio 15 % 02/06/18 02:09 Glucose 229 mg/dL (75-100) H 02/06/18 02:09 POC Glucose 195 (70-105) H 02/06/18 12:05 Calcium 8.2 mg/dL (8.4-10.2) L 02/06/18 02:09 Phosphorus 3.88 mg/dL (2.5-4.5) 02/02/18 14:17 Magnesium 1.70 mg/dL (1.7-2.3) 02/05/18 02:31 Total Bilirubin 0.60 mg/dL (0.1-1.2) 02/03/18 04:43 AST 23 units/L (5-40) 02/03/18 04:43 ALT 18 units/L (7-56) 02/03/18 04:43 Alkaline Phosphatase 43 units/L (35-129) 02/03/18 04:43 Total Protein 5.7 g/dL (6.3-8.2) L 02/03/18 04:43 Albumin 3.2 g/dL (3.9-5) L 02/03/18 04:43 Albumin/Globulin Ratio 1.3 % 02/03/18 04:43 Triglycerides 301.2 mg/dL (2-149) H 02/02/18 14:17 Cholesterol 27.6 mg/dL (50-199) L 02/02/18 14:17 LDL Cholesterol Direct 0 mg/dL (50-130) L 02/02/18 14:17 HDL Cholesterol 13.2 mg/dL (40-59) L 02/02/18 14:17 Cholesterol/HDL Ratio 2.00 % 02/02/18 14:17 Amylase 448.8 units/L (27-131) H 02/02/18 14:17 Lipase 141 units/L (13-60) H 02/03/18 04:43 Urine Color Yellow (Yellow) 02/02/18 12:26 Urine Turbidity Clear (Clear) 02/02/18 12:26 Urine pH 6.0 (5.0-7.0) 02/02/18 12:26 Ur Specific [place] 1.030 (1.003-1.030) 02/02/18 12:26 Urine Protein 30 mg/dl mg/dL (Negative) 02/02/18 12:26 Urine Glucose (UA) >=500 mg/dL (Negative) 02/02/18 12:26 Urine Ketones 80 mg/dL (Negative) 02/02/18 12:26 Urine Blood Sm (Negative) 02/02/18 12:26 Urine Nitrite Neg (Negative) 02/02/18 12:26 Urine Bilirubin Neg (Negative) 02/02/18 12:26 Urine Urobilinogen < 2.0 mg/dL (<2.0) 02/02/18 12:26 Ur Leukocyte Esterase Neg (Negative) 02/02/18 12:26 Urine WBC (Auto) < 1.0 /HPF (0.0-6.0) 02/02/18 12:26 Urine RBC (Auto) 4.0 /HPF (0.0-6.0) 02/02/18 12:26 Urine Opiates Screen Presumptive negative 02/02/18 17:12 Urine Methadone Screen Presumptive negative 02/02/18 17:12 Ur Barbiturates Screen Presumptive negative 02/02/18 17:12 Ur Phencyclidine Scrn Presumptive negative 02/02/18 17:12 Ur Amphetamines Screen Presumptive negative 02/02/18 17:12 U Benzodiazepines Scrn Presumptive negative 02/02/18 17:12 Urine Cocaine Screen Presumptive negative 02/02/18 17:12 U Marijuana (THC) Screen Presumptive negative 02/02/18 17:12 Drugs of Abuse Note Disclamer 02/02/18 17:12 Nutrition/Malnutrition Assess - Dietary Evaluation Nutrition/Malnutrition Findings: Nutrition Notes Start: 02/03/18 10:01 Freq: Status: Active Protocol: Document 02/03/18 10:01 TW (Rec: 02/03/18 10:11 TW [id number]) Co-Sign 02/03/18 10:01 NHALL Nutrition Notes Need for Assessment generated from: Education Initial or Follow up Assessment Current Diagnoses Diabetes Current Diet NPO Labs/Tests Reviewed. Medications Reviewed. Height 6 ft 2 in Weight 98.9 kg [place] Body Weight (lbs) 190.0 BMI 28.0 WEIGHT STATUS OVERWEIGHT Subjective/Other Information MD consult for DKA diet education. Pt stated he is eating well and is aware of high BG. Provided DKA education and handout. Burn Absent Trauma Absent #1 Nutrition Diagnoses Food and nutrition-related knowledge deficit Etiology limited exposure to DKA education As Evidenced by Signs and Symptoms elevated blood sugar Is patient on ventilator? No Is Patient Ambulatory and/or Out of Bed No REE-([place]-St Jeor-confined to bed) 6710.096 Calculation [facility] Inter[facility] Teaching Recipient Patient Learning Readiness Good Teaching Methods Discussion Handout Response to Teaching Verbalize understanding Education Handouts Provided CHO Counting for people with DM. Barriers to Learning No Barriers RD phone number provided Yes Patient aware of follow up options Yes Goal #1 Blood Sugar control Goal #2 Adhere to CHO control diet Anticipated Discharge Needs: CHO controlled diet Revisit per MD consult or patient Sign Off request:
[2018-02-06] MEDS ORDERED: K-DUR PO ONE (15:00)
[2018-02-06] MEDS ORDERED: MOTRIN PO ONE ×2 (15:16→18:00)
[2018-02-06] MEDS ORDERED: LASIX IV NR (15:19)
[2018-02-06] MEDS: ZOSYN/NS 4.5GM/100ML 4.5 GM/100 ML VIAL IV SCH ×2 (17:24→21:34)
--- NOTE | 2018-02-06 17:51 | XRay Report ---
FINAL REPORT PROCEDURE: Abdominal series. TECHNIQUE: Portable supine and upright views of the abdomen, portable upright chest. HISTORY: Fevers. COMPARISON: No prior studies are available for comparison. FINDINGS: The heart and mediastinum appear normal. The right lung is clear and well expanded. There is blunting of the left costophrenic angle and abnormal opacity at the left lung base. This is consistent with a moderately large pleural effusion. There may be atelectasis or consolidation in the left lung base. There is no evidence of pneumoperitoneum. The bowel gas pattern is normal. The soft tissues and regio nal skeleton are unremarkable. IMPRESSION: Moderately large left pleural effusion. No evidence of acute abdominal disease.
[2018-02-07] MEDS: HumuLIN R SUB-Q SCH ×4 (00:19→16:30)
[2018-02-07 05:15] LABS: Hematocrit 44.2 % (35.5-45.6); Hemoglobin 14.7 gm/dl (11.8-15.2); Mean Corpuscular HGB Conc 33 % (32-34); Mean Corpuscular Hemoglobin 29 pg (28-32); Mean Corpuscular Volume 87 fl (84-94); Red Blood Count 5.07 M/mm3 (3.65-5.03); Red Cell Distribution Width 14.7 % (13.2-15.2)
[2018-02-07 05:17] LABS: Platelet Count 120 K/mm3 (140-440)
[2018-02-07 05:31] LABS: BUN/Creatinine Ratio 24; Blood Urea Nitrogen 12 mg/dL (9-20); Hemolysis Index 61
[2018-02-07] MEDS: DILAUDID IV PRN ×3 (06:22→19:58)
[2018-02-07] MEDS: ZOSYN/NS 4.5GM/100ML 4.5 GM/100 ML VIAL IV SCH (06:23)
[2018-02-07 06:28] LABS: Calcium 8.1 mg/dL (8.4-10.2)
[2018-02-07 07:31] LABS: Bilirubin,Urine NEG (Negative); Blood,Urine NEG (Negative); Color,Urine Amber (Yellow); Mucus,Urine FEW /HPF
[2018-02-07] MEDS: PEPCID PO SCH ×2 (09:35→21:29)
[2018-02-07] MEDS: LOVENOX SUB-Q SCH (09:36)
[2018-02-07] MEDS ORDERED: K-DUR PO ONE (11:31)
--- NOTE | 2018-02-07 11:35 | Progress Note ---
Assessment and Plan Assessment and plan: Patient is a 27-year-old man with history of dyslipidemia who presented to [facility] ED with abdominal pains and constipation. He was found to have new onset DM with DKA and pancreatitis Acute severe pancreatitis, ?TGs related: advance diet to GI soft, pain control New onset DM with DKA: anion gap closed, off insulin drip, now on long acting, education done regarding OTC insulin if he has no insurance Leukocytosis and Sinus tachycardia, SIRS with organ dysfunction, poa: treat the underlying condition Fevers, ?pancreatits related vs underlying pna with pleural effusion vs other: get blood culture, abd xr, cxr, ua, started empiric abx IV zosyn==>cxr showed moderate to large pleural effusion, consulted and notified ID Left Moderate Pleural Effusion most likely pancreatitis related vs PNA vs other, but defer to Pulmonology: gave lasix 40mg iv x 1 02/06/18 with good results but now electrolyte imbalances Hyponatremia at 127: consulted Nephrology Hypokalemia: replete and recheck in AM Thrombocytopenia: monitoring cbc daily DVT prophylaxis: on sq lovenox full code Disposition: continue inpatient care, stabilize sodium levels, work up the fevers and pulmonology to address the pleural effusion, ?thoracentesis needed. History Interval history: Patient was seen and examined. Follow-up on current diagnosis abdominal pains, improved. Overnight uneventful. Patient denies any chest pain, shortness breath, nausea/vomiting or severe headaches. Imaging, nursing note, chart, labs and old chart reviewed. Discussed with patient. New issue is fevers. Hospitalist Physical - Physical exam Narrative exam: Gen: WDWN, NAD, Awake, Alert, Orientated x 3 HEENT: NCAT, EOMI, PERRL, OP Clear Neck: supple, no adenopathy, no thyromegaly, no JVD CVS/Heart: RRR, normal S1S2, pulses present bilaterally Chest/Lungs: CTA B, crackles at low left base, Symmetrical chest expansion, good air entry bilaterally GI/Abdomen: soft, epigastric tenderness, good bowel sounds, no guarding or rebound /Bladder: no suprapubic tenderness, no CVA or paraspinal tenderness Extermity/Skin: no c/c/e, no obvious rash MSK: FROM x 4 Neuro: CN 2-12 grossly intact, no new focal deficits Psych: calm - Constitutional Vitals: Temp Pulse Resp BP Pulse Ox 100.2 F H 103 H 24 127/83 96 02/06/18 12:00 02/06/18 12:00 02/06/18 12:00 02/06/18 12:00 02/06/18 12:00 General appearance: Present: well-nourished Results - Labs CBC & Chem 7: 02/07/18 03:59 02/07/18 03:59 Labs: Laboratory Last Values WBC 8.5 K/mm3 (4.5-11.0) 02/07/18 03:59 RBC 5.07 M/mm3 (3.65-5.03) H 02/07/18 03:59 Hgb 14.7 gm/dl (11.8-15.2) 02/07/18 03:59 Hct 44.2 % (35.5-45.6) 02/07/18 03:59 MCV 87 fl (84-94) 02/07/18 03:59 MCH 29 pg (28-32) 02/07/18 03:59 MCHC 33 % (32-34) 02/07/18 03:59 RDW 14.7 % (13.2-15.2) 02/07/18 03:59 Plt Count 120 K/mm3 (140-440) L 02/07/18 03:59 Lymph % (Auto) 8.8 % (13.4-35.0) L 02/03/18 04:43 [place] % (Auto) 6.5 % (0.0-7.3) 02/03/18 04:43 Eos % (Auto) 0.0 % (0.0-4.3) 02/03/18 04:43 Baso % (Auto) 0.6 % (0.0-1.8) 02/03/18 04:43 Lymph # 1.4 K/mm3 (1.2-5.4) 02/03/18 04:43 [place] # 1.0 K/mm3 (0.0-0.8) H 02/03/18 04:43 Eos # 0.0 K/mm3 (0.0-0.4) 02/03/18 04:43 Baso # 0.1 K/mm3 (0.0-0.1) 02/03/18 04:43 Add Manual Diff Complete 02/02/18 11:47 Total Counted 100 02/02/18 11:47 Seg Neutrophils % 84.1 % (40.0-70.0) H 02/03/18 04:43 Seg Neuts % (Manual) 80.0 % (40.0-70.0) H 02/02/18 11:47 Band Neutrophils % 10.0 % 02/02/18 11:47 Lymphocytes % (Manual) 6.0 % (13.4-35.0) L 02/02/18 11:47 Reactive Lymphs % (Man) 0 % 02/02/18 11:47 Monocytes % (Manual) 3.0 % (0.0-7.3) 02/02/18 11:47 Eosinophils % (Manual) 0 % (0.0-4.3) 02/02/18 11:47 Basophils % (Manual) 0 % (0.0-1.8) 02/02/18 11:47 Metamyelocytes % 1.0 % 02/02/18 11:47 Myelocytes % 0 % 02/02/18 11:47 Promyelocytes % 0 % 02/02/18 11:47 Blast Cells % 0 % 02/02/18 11:47 Nucleated RBC % Not Reportable 02/02/18 11:47 Seg Neutrophils # 13.2 K/mm3 (1.8-7.7) H 02/03/18 04:43 Seg Neutrophils # Man 16.2 K/mm3 (1.8-7.7) H 02/02/18 11:47 Band Neutrophils # 2.0 K/mm3 02/02/18 11:47 Lymphocytes # (Manual) 1.2 K/mm3 (1.2-5.4) 02/02/18 11:47 Abs React Lymphs (Man) 0.0 K/mm3 02/02/18 11:47 Monocytes # (Manual) 0.6 K/mm3 (0.0-0.8) 02/02/18 11:47 Eosinophils # (Manual) 0.0 K/mm3 (0.0-0.4) 02/02/18 11:47 Basophils # (Manual) 0.0 K/mm3 (0.0-0.1) 02/02/18 11:47 Metamyelocytes # 0.2 K/mm3 02/02/18 11:47 Myelocytes # 0.0 K/mm3 02/02/18 11:47 Promyelocytes # 0.0 K/mm3 02/02/18 11:47 Blast Cells # 0.0 K/mm3 02/02/18 11:47 WBC Morphology Not Reportable 02/02/18 11:47 Hypersegmented Neuts Not Reportable 02/02/18 11:47 Hyposegmented Neuts Not Reportable 02/02/18 11:47 Hypogranular Neuts Not Reportable 02/02/18 11:47 Smudge Cells Not Reportable 02/02/18 11:47 Toxic Granulation Not Reportable 02/02/18 11:47 Toxic Vacuolation Not Reportable 02/02/18 11:47 Dohle Bodies Not Reportable 02/02/18 11:47 Pelger-Huet Anomaly Not Reportable 02/02/18 11:47 Ariadna Rods Not Reportable 02/02/18 11:47 Platelet Estimate Appears normal 02/02/18 11:47 Clumped Platelets Not Reportable 02/02/18 11:47 Plt Clumps, EDTA Not Reportable 02/02/18 11:47 Large Platelets Not Reportable 02/02/18 11:47 Giant Platelets Not Reportable 02/02/18 11:47 Platelet Satelliting Not Reportable 02/02/18 11:47 Plt Morphology Comment Not Reportable 02/02/18 11:47 RBC Morphology Not Reportable 02/02/18 11:47 Dimorphic RBCs Not Reportable 02/02/18 11:47 Polychromasia Not Reportable 02/02/18 11:47 Hypochromasia Not Reportable 02/02/18 11:47 Poikilocytosis Not Reportable 02/02/18 11:47 Anisocytosis 1+ 02/02/18 11:47 Microcytosis Not Reportable 02/02/18 11:47 Macrocytosis Not Reportable 02/02/18 11:47 Spherocytes Not Reportable 02/02/18 11:47 Pappenheimer Bodies Not Reportable 02/02/18 11:47 Sickle Cells Not Reportable 02/02/18 11:47 Target Cells Not Reportable 02/02/18 11:47 Tear Drop Cells Not Reportable 02/02/18 11:47 Ovalocytes 1+ 02/02/18 11:47 Helmet Cells Not Reportable 02/02/18 11:47 Colon-[place] Bodies Not Reportable 02/02/18 11:47 [place] Rings Not Reportable 02/02/18 11:47 [place] Cells 1+ 02/02/18 11:47 Bite Cells Not Reportable 02/02/18 11:47 Crenated Cell Not Reportable 02/02/18 11:47 Elliptocytes Not Reportable 02/02/18 11:47 Acanthocytes (Spur) Not Reportable 02/02/18 11:47 Rouleaux Not Reportable 02/02/18 11:47 Hemoglobin C Crystals Not Reportable 02/02/18 11:47 Schistocytes Not Reportable 02/02/18 11:47 Malaria parasites Not Reportable 02/02/18 11:47 Burak Bodies Not Reportable 02/02/18 11:47 Hem Pathologist Commnt No 02/02/18 11:47 Sodium 127 mmol/L (137-145) L 02/07/18 03:59 Potassium 3.5 mmol/L (3.6-5.0) L 02/07/18 03:59 Chloride 85.1 mmol/L (98-107) L 02/07/18 03:59 Carbon Dioxide 20 mmol/L (22-30) L 02/07/18 03:59 Anion Gap 25 mmol/L 02/07/18 03:59 BUN 12 mg/dL (9-20) 02/07/18 03:59 Creatinine 0.5 mg/dL (0.8-1.5) L 02/07/18 03:59 Estimated GFR > 60 ml/min 02/07/18 03:59 BUN/Creatinine Ratio 24 % 02/07/18 03:59 Glucose 211 mg/dL (75-100) H 02/07/18 03:59 POC Glucose 211 (70-105) H 02/07/18 06:37 Calcium 8.1 mg/dL (8.4-10.2) L 02/07/18 03:59 Phosphorus 3.88 mg/dL (2.5-4.5) 02/02/18 14:17 Magnesium 1.70 mg/dL (1.7-2.3) 02/05/18 02:31 Total Bilirubin 0.60 mg/dL (0.1-1.2) 02/03/18 04:43 AST 23 units/L (5-40) 02/03/18 04:43 ALT 18 units/L (7-56) 02/03/18 04:43 Alkaline Phosphatase 43 units/L (35-129) 02/03/18 04:43 Total Protein 5.7 g/dL (6.3-8.2) L 02/03/18 04:43 Albumin 3.2 g/dL (3.9-5) L 02/03/18 04:43 Albumin/Globulin Ratio 1.3 % 02/03/18 04:43 Triglycerides 301.2 mg/dL (2-149) H 02/02/18 14:17 Cholesterol 27.6 mg/dL (50-199) L 02/02/18 14:17 LDL Cholesterol Direct 0 mg/dL (50-130) L 02/02/18 14:17 HDL Cholesterol 13.2 mg/dL (40-59) L 02/02/18 14:17 Cholesterol/HDL Ratio 2.00 % 02/02/18 14:17 Amylase 448.8 units/L (27-131) H 02/02/18 14:17 Lipase 141 units/L (13-60) H 02/03/18 04:43 Urine Color Agnes (Yellow) 02/07/18 07:06 Urine Turbidity Clear (Clear) 02/07/18 07:06 Urine pH 6.0 (5.0-7.0) 02/07/18 07:06 Ur Specific [place] 1.028 (1.003-1.030) 02/07/18 07:06 Urine Protein 30 mg/dl mg/dL (Negative) 02/07/18 07:06 Urine Glucose (UA) >=500 mg/dL (Negative) 02/07/18 07:06 Urine Ketones Tr mg/dL (Negative) 02/07/18 07:06 Urine Blood Neg (Negative) 02/07/18 07:06 Urine Nitrite Neg (Negative) 02/07/18 07:06 Urine Bilirubin Neg (Negative) 02/07/18 07:06 Urine Urobilinogen 4.0 mg/dL (<2.0) 02/07/18 07:06 Ur Leukocyte Esterase Neg (Negative) 02/07/18 07:06 Urine WBC (Auto) 1.0 /HPF (0.0-6.0) 02/07/18 07:06 Urine RBC (Auto) 3.0 /HPF (0.0-6.0) 02/07/18 07:06 Urine Mucus Few /HPF 02/07/18 07:06 Urine Opiates Screen Presumptive negative 02/02/18 17:12 Urine Methadone Screen Presumptive negative 02/02/18 17:12 Ur Barbiturates Screen Presumptive negative 02/02/18 17:12 Ur Phencyclidine Scrn Presumptive negative 02/02/18 17:12 Ur Amphetamines Screen Presumptive negative 02/02/18 17:12 U Benzodiazepines Scrn Presumptive negative 02/02/18 17:12 Urine Cocaine Screen Presumptive negative 02/02/18 17:12 U Marijuana (THC) Screen Presumptive negative 02/02/18 17:12 Drugs of Abuse Note Disclamer 02/02/18 17:12 Nutrition/Malnutrition Assess - Dietary Evaluation Nutrition/Malnutrition Findings: Nutrition Notes Start: 02/03/18 10:01 Freq: Status: Active Protocol: Document 02/03/18 10:01 TW (Rec: 02/03/18 10:11 TW [id number]) Co-Sign 02/03/18 10:01 NHALL Nutrition Notes Need for Assessment generated from: Education Initial or Follow up Assessment Current Diagnoses Diabetes Current Diet NPO Labs/Tests Reviewed. Medications Reviewed. Height 6 ft 2 in Weight 98.9 kg [place] Body Weight (lbs) 190.0 BMI 28.0 WEIGHT STATUS OVERWEIGHT Subjective/Other Information MD consult for DKA diet education. Pt stated he is eating well and is aware of high BG. Provided DKA education and handout. Burn Absent Trauma Absent #1 Nutrition Diagnoses Food and nutrition-related knowledge deficit Etiology limited exposure to DKA education As Evidenced by Signs and Symptoms elevated blood sugar Is patient on ventilator? No Is Patient Ambulatory and/or Out of Bed No [phone] Calculation Used for Recommendations [facility] Nutrition Intervention Teaching Recipient Patient Learning Readiness Good Teaching Methods Discussion Handout Response to Teaching Verbalize understanding Education Handouts Provided CHO Counting for people with DM. Barriers to Learning No Barriers RD phone number provided Yes Patient aware of follow up options Yes Goal #1 Blood Sugar control Goal #2 Adhere to CHO control diet Anticipated Discharge Needs: CHO controlled diet Revisit per MD consult or patient Sign Off request:
[2018-02-07] MEDS: SODIUM CHLORIDE FLUSH SYRINGE 10 ML IV SCH ×2 (12:10→21:29)
--- NOTE | 2018-02-07 14:09 | Consultation ---
History of Present Illness - Reason for Consult Consult date: 02/07/18 fever, pancreatitis Requesting physician: CARLA JOHN - History of Present Illness The patient is a 27-year-old male with no significant past medical history other than hyperlipidemia presented to the emergency room on 02/02/2018 with complaints of severe abdominal pain. He was found to have acute pancreatitis as well as new onset diabetes mellitus. Treatment so far has included IV fluids and supportive care. He has been seen by GI, etiology of the acute pancreatitis is unclear, possibly idiopathic. He was initially afebrile, for the last 2 days he started having low-grade temperatures however MAXIMUM TEMPERATURE has been 100.4 2 days ago. Temperature this morning was 100.2F. Overall, the patient feels much improved. His abdominal pain was initially 10 upon 10 and intensity, now down to about 2-3 upon 10. He has been tolerating clear liquids and diet was further advanced today. He reports some cough when he takes a deep breath. Otherwise denies any shortness of breath but is unable to take a deep breath. He denies any urinary burning. Drinks alcohol socially, denies smoking. Denies recreational drug use. Review of Systems: General: low grade fevers, no chills or rigors HEENT: no new visual disturbance Respiratory: No cough, sputum, hemoptysis. Cardiovascular: No chest pain, syncope Gastrointestinal: No nausea, vomiting or diarrhea. Abdominal pain + left sided, radiating to the back Genitourinary: No dysuria or hematuria Musculoskeletal: No new or worsening neck pain or back pain Neurologic: No headaches, seizures Hematologic: No easy bruising or bleeding Endocrine: No night sweats or acute weight loss Skin: negative for rash, jaundice Psychiatric: No suicidal or homicidal ideation Past History Past Medical History: hyperlipidemia Past Surgical History: No surgical history Social history: no significant social history, lives with family. denies: smoking, alcohol abuse, prescription drug abuse Family history: no significant family history Medications and Allergies Allergies Allergy/AdvReac Type Severity Reaction Status Date / Time No Known Allergies Allergy Unverified 02/02/18 09:56 Home Medications Medication Instructions Recorded Confirmed Last Taken Type No Known Home Medications [No 02/02/18 02/02/18 Unknown History Reported Home Medications] Active Meds: Active Medications Acetaminophen (Tylenol) 650 mg PO Q4H PRN PRN Reason: Pain MILD(1-3)/Fever >100.5/RODRIGUEZ Last Admin: 02/05/18 11:59 Dose: 650 mg Documented by: Dextrose (D50w (25gm) Syringe) 50 ml IV PRN PRN PRN Reason: Hypoglycemia Enoxaparin Sodium (Lovenox) 40 mg SUB-Q QDAY@1000 [facility] Last Admin: 02/07/18 09:36 Dose: 40 mg Documented by: Famotidine (Pepcid) 20 mg PO BID [facility] Last Admin: 02/07/18 09:35 Dose: 20 mg Documented by: Hydromorphone HCl (Dilaudid) 1 mg IV Q3H PRN PRN Reason: Pain, Moderate (4-6) Last Admin: 02/07/18 06:22 Dose: 1 mg Documented by: Insulin Human NPH (Humulin N) 15 unit SUB-Q BIDDIAB [facility] Last Admin: 02/07/18 08:54 Dose: 15 unit Documented by: Insulin Human Regular (Humulin R) 0 units SUB-Q Q6HR [facility]; Protocol Last Admin: 02/07/18 12:11 Dose: 3 units Documented by: Ondansetron HCl (Zofran) 4 mg IV Q8H PRN PRN Reason: Nausea And Vomiting Sodium Chloride (Sodium Chloride Flush Syringe 10 Ml) 10 ml IV BID [facility] Last Admin: 02/07/18 12:10 Dose: 10 ml Documented by: Sodium Chloride (Sodium Chloride Flush Syringe 10 Ml) 10 ml IV PRN PRN PRN Reason: LINE FLUSH Physical Examination - Physical Exam Narrative exam: Physical Exam: Constitutional: Alert, cooperative. No acute distress Head, Ears, Nose: Normocephalic, atraumatic. External ears, nose normal Eyes: Conjunctivae/corneas clear. No icterus. No ptosis. Neck: Supple, no meningeal signs Oral: dentition fair, no thrush Cardiovascular: S1, S2 normal. Respiratory: air entry reduced in left base. GI: Soft, LUQ and epigastric tenderness; bowel sounds normal. No peritoneal signs Musculoskeletal: No pedal edema, no cyanosis. Skin: No rash or abscess Hem/Lymphatic: No palpable cervical or supraclavicular nodes. No lymphangitis Psych: Mood ok. Affect normal Neurological: Awake, alert, oriented. No gross abnormality - Constitutional Vitals: Vital Signs Temp Pulse Resp BP Pulse Ox 100.2 F H 103 H 24 127/83 96 02/06/18 12:00 02/06/18 12:00 02/06/18 12:00 02/06/18 12:00 02/06/18 12:00 Results - Labs CBC & Chem 7: 02/07/18 03:59 02/07/18 03:59 Labs: Abnormal lab results 02/06/18 02/06/18 02/07/18 Range/Units 16:30 21:18 03:59 RBC 5.07 H (3.65-5.03) M/mm3 Plt Count 120 L (140-440) K/mm3 Sodium (137-145) mmol/L Potassium (3.6-5.0) mmol/L Chloride (98-107) mmol/L Carbon Dioxide (22-30) mmol/L Creatinine (0.8-1.5) mg/dL Glucose (75-100) mg/dL POC Glucose 196 H 249 H (70-105) Calcium (8.4-10.2) mg/dL 02/07/18 02/07/18 02/07/18 Range/Units 03:59 06:37 11:36 RBC (3.65-5.03) M/mm3 Plt Count (140-440) K/mm3 Sodium 127 L (137-145) mmol/L Potassium 3.5 L (3.6-5.0) mmol/L Chloride 85.1 L (98-107) mmol/L Carbon Dioxide 20 L (22-30) mmol/L Creatinine 0.5 L (0.8-1.5) mg/dL Glucose 211 H (75-100) mg/dL POC Glucose 211 H 230 H (70-105) Calcium 8.1 L (8.4-10.2) mg/dL - Imaging and Cardiology Chest x-ray: report reviewed, image reviewed (Chest x-ray reviewed shows evidence of left pleural effusion.) CT scan - abdomen: report reviewed, image reviewed (revealed acute pancreatitis.) Assessment and Plan Cultures: 02/03/2018 blood culture: No growth 02/06/2018 blood culture: In progress A/P: 27-year-old male with no significant past medical history other than hyperlipidemia presented to the emergency room on 02/02/2018 with complaints of severe abdominal pain. He was found to have acute pancreatitis as well as new onset diabetes mellitus. Now with: 1) Fevers: Likely related to the acute inflammatory state secondary to acute ko creatitis v/s left effusion and atelectasis. Overall clinically though patient is feeling better. Abdominal pain is improving with a gradually advanced diet. He does have evidence of left-sided pleural effusion probably related to his pancreatitis. May have some underlying atelectasis related to this. WBC count is normal. He is stable hemodynamically. For now, recommend watching off antibiotics and monitoring fever curve. If he spikes a fever greater than 101.5F, recommend obtaining a CT scan abdomen and pelvis with IV contrast to evaluate for complications of pancreatitis which would include necrotizing pancreatitis versus infected pancreatic pseudocyst. 2) Left-sided pleural effusion with likely underlying atelectasis: Recommend incentive spirometry. Getting lasix as needed. 3) acute pancreatitis: diet slowly being advanced. Recs: discontinued Zosyn Incentive spirometry ordered For now, recommend watching off antibiotics and monitoring fever curve If he spikes a fever greater than 101.5F, recommend obtaining a CT scan abdomen and pelvis with IV contrast to evaluate for complications of pancreatitis which would include necrotizing pancreatitis versus infected pancreatic pseudocyst Will follow. Plan discussed with Dr. John. MD [facility] C: [phone] O: [phone] F: [phone]
[2018-02-07] MEDS: TYLENOL PO PRN (14:23)
[2018-02-08] MEDS: HumuLIN R SUB-Q SCH ×4 (00:45→18:26)
[2018-02-08] MEDS: DILAUDID IV PRN ×3 (00:57→23:14)
[2018-02-08 06:14] LABS: BUN/Creatinine Ratio 16; Blood Urea Nitrogen 11 mg/dL (9-20); Calcium 8.5 mg/dL (8.4-10.2); Hemolysis Index 3
--- NOTE | 2018-02-08 08:47 | Progress Note ---
Assessment and Plan Cultures: 02/03/2018 blood culture: No growth 02/06/2018 blood culture: In progress A/P: 27-year-old male with no significant past medical history other than hyperlipidemia presented to the emergency room on 02/02/2018 with complaints of severe abdominal pain. He was found to have acute pancreatitis as well as new onset diabetes mellitus. Now with: 1) Fevers: Continuing , Likely related to the acute inflammatory state secondary to acute pancreatitis v/s left effusion and atelectasis. Overall clinically though patient is feeling better. Abdominal pain is improving with a gradually advanced diet. He does have evidence of left-sided pleural effusion probably related to his pancreatitis. May have some underlying atelectasis related to this. WBC count is normal. He is stable hemodynamically. For now, recommend watching off antibiotics and monitoring fever curve. If he spikes a f ever greater than 101.5F, recommend obtaining a CT scan abdomen and pelvis with IV contrast to evaluate for complications of pancreatitis which would include necrotizing pancreatitis versus infected pancreatic pseudocyst. 2) Left-sided pleural effusion with likely underlying atelectasis: Recommend incentive spirometry. Getting lasix as needed. 3) acute pancreatitis: diet slowly being advanced. Recs: Continue Incentive spirometry Continue off antibiotics , monitor fever curve Continued fevers, Will order CT scan abdomen and pelvis with IV contrast to evaluate for complications of pancreatitis which would include necrotizing pancreatitis versus infected pancreatic pseudocyst [facility] M: [phone] O:[phone] Subjective Date of service: 02/08/18 Principal diagnosis: pancreatitis, DKA Interval history: Patient seen and examined. Reports continued discomfort with taking deep breaths. Reports upper back pain 3 out of 10. Objective - Exam Narrative Exam: Physical Exam: Constitutional: Alert, cooperative. No acute distress Head, Ears, Nose: Normocephalic, atraumatic. External ears, nose normal Eyes: Conjunctivae/corneas clear. No icterus. No ptosis. Neck: Supple, no meningeal signs Oral: dentition fair, no thrush Cardiovascular: S1, S2 normal. Respiratory: air entry reduced in left base. GI: Soft, LUQ and epigastric tenderness; bowel sounds normal. No peritoneal signs Musculoskeletal: No pedal edema, no cyanosis. Skin: No rash or abscess Hem/Lymphatic: No palpable cervical or supraclavicular nodes. No lymphangitis Psych: Mood ok. Affect normal Neurological: Awake, alert, oriented. No gross abnormality - Constitutional Vitals: Vital Signs Temp Pulse Resp BP Pulse Ox 98.0 F 97 H 18 127/78 96 02/08/18 05:55 02/08/18 05:55 02/08/18 05:55 02/08/18 05:55 02/08/18 05:55 Temperature -Last 24 Hours Temperature 98.0 F Temperature 98.6 F Temperature 98.7 F Temperature 101.2 F - Labs CBC & Chem 7: 02/07/18 03:59 02/08/18 05:09 Labs: Abnormal lab results 02/07/18 02/07/18 02/07/18 Range/Units 06:37 11:36 16:45 Sodium (137-145) mmol/L Chloride (98-107) mmol/L Carbon Dioxide (22-30) mmol/L Creatinine (0.8-1.5) mg/dL Glucose (75-100) mg/dL POC Glucose 211 H 230 H 185 H (70-105) 02/07/18 02/08/18 02/08/18 Range/Units 21:58 05:09 08:11 Sodium 133 L (137-145) mmol/L Chloride 95.1 L (98-107) mmol/L Carbon Dioxide 21 L (22-30) mmol/L Creatinine 0.7 L (0.8-1.5) mg/dL Glucose 202 H (75-100) mg/dL POC Glucose 196 H 188 H (70-105)
[2018-02-08] MEDS: SODIUM CHLORIDE FLUSH SYRINGE 10 ML IV SCH ×2 (09:13→23:15)
[2018-02-08] MEDS: PEPCID PO SCH ×2 (09:13→22:54)
[2018-02-08] MEDS: LOVENOX SUB-Q SCH (09:13)
--- NOTE | 2018-02-08 09:16 | Consultation ---
History of Present Illness - Reason for Consult Consult date: 02/08/18 hyponatremia - History of Present Illness This is a very pleasant 27-year-old male with no significant past medical history who presented to the emergency room department secondary to diffuse abdominal pain and acute onset of pancreatitis in the setting of significantly elevated triglyceride levels. He was also found to be in hyperosmolar hyperglycemic state concerning for DKA. She was initially started on insulin drip and was managed in the ICU. He has been weaned off the DKA /insulin protocol and is now on long-acting insulin at this time. He is on the telemetry floor. Nephrology is being consulted secondary to hyponatremia. Overall symptoms have shown improvement during his course of stay. His serum sodium level today has increased to 133 from 127 yesterday. Please note that his serum glucose level upon measurement of his serum sodium level today was 200, which would further increase his real sodium levels to more than 135 mEq per liter. He denies any significant nausea or vomiting at this time. He admits to normal urine output without noticing any changes in his urinary flow. His abdominal pain is improving since admission. Past History Past Medical History: hyperlipidemia Past Surgical History: No surgical history Social history: no significant social history, lives with family. denies: smoking, alcohol abuse, prescription drug abuse Family history: no significant family history Medications and Allergies Allergies Allergy/AdvReac Type Severity Reaction Status Date / Time No Known Allergies Allergy Unverified 02/02/18 09:56 Home Medications Medication Instructions Recorded Confirmed Last Taken Type No Known Home Medications [No 02/02/18 02/02/18 Unknown History Reported Home Medications] Active Meds: Active Medications Acetaminophen (Tylenol) 650 mg PO Q4H PRN PRN Reason: Pain MILD(1-3)/Fever >100.5/RODRIGUEZ Last Admin: 02/07/18 14:23 Dose: 650 mg Documented by: Dextrose (D50w (25gm) Syringe) 50 ml IV PRN PRN PRN Reason: Hypoglycemia Enoxaparin Sodium (Lovenox) 40 mg SUB-Q QDAY@1000 [facility] Last Admin: 02/07/18 09:36 Dose: 40 mg Documented by: Famotidine (Pepcid) 20 mg PO BID [facility] Last Admin: 02/07/18 21:29 Dose: 20 mg Documented by: Hydromorphone HCl (Dilaudid) 1 mg IV Q3H PRN PRN Reason: Pain, Moderate (4-6) Last Admin: 02/08/18 00:57 Dose: 1 mg Documented by: Insulin Human NPH (Humulin N) 15 unit SUB-Q BIDDIAB [facility] Last Admin: 02/07/18 17:06 Dose: 15 unit Documented by: Insulin Human Regular (Humulin R) 0 units SUB-Q Q6HR [facility]; Protocol Last Admin: 02/08/18 00:45 Dose: 3 units Documented by: Ondansetron HCl (Zofran) 4 mg IV Q8H PRN PRN Reason: Nausea And Vomiting Sodium Chloride (Sodium Chloride Flush Syringe 10 Ml) 10 ml IV BID [facility] Last Admin: 02/07/18 21:29 Dose: 10 ml Documented by: Sodium Chloride (Sodium Chloride Flush Syringe 10 Ml) 10 ml IV PRN PRN PRN Reason: LINE FLUSH Review of Systems All systems: negative Gastrointestinal: abdominal pain, loss of appetite Exam - Vital Signs Vital signs: Vital Signs Temp Pulse Resp BP Pulse Ox 98.2 F 105 H 24 142/99 99 02/02/18 09:56 02/02/18 09:56 02/02/18 09:56 02/02/18 09:56 02/02/18 09:56 - General Appearance General appearance: well-developed, well-nourished, appears stated age EENT: ATNC, PERRL Neck: Present: neck supple, trachea midline Respiratory: Decreased Breath Sounds (over the left lung base. ) Heart: regular, S1S2 Gastrointestinal: Present: normal, normoactive bowel sounds Integumentary: no rash, warm and dry Neurologic: no focal deficit, no asterixis, alert and oriented x3 Musculoskeletal: Present: other (-edema ) Psychiatric: mood/affect appropriate, cooperative Results - Lab Results 02/07/18 03:59 02/08/18 05:09 Most recent lab results Calcium 8.5 mg/dL (8.4-10.2) 02/08/18 05:09 Phosphorus 3.88 mg/dL (2.5-4.5) 02/02/18 14:17 Magnesium 1.70 mg/dL (1.7-2.3) 02/05/18 02:31 Assessment and Plan - Patient Problems (1) Hyponatremia Current Visit: Yes Status: Acute Plan to address problem: Hyponatremia in the setting of hyperglycemia, hyperlipidemia, abdominal pain and discomfort from acute pancreatitis. Overall she is serum sodium levels are stable. We will order serum and urine osmolality as well as urine electrolytes for further evaluation at this time. However I do believe that appropriate management of his new onset diabetes, hypertriglyceridemia, and pain control will stabilize and normalize his serum sodium levels. May be dealing with pseudohyponatremia. (2) Diabetes mellitus Current Visit: Yes Status: Acute Plan to address problem: Patient with initial presentation of DKA in the setting of new onset diabetes. Currently on insulin regimen. Management per primary team. (3) Acute pancreatitis Current Visit: Yes Status: Acute Plan to address problem: Overall pain management seems to be improving. He is slowly increasing his overall diet. Increased pain can stimulate ADH secretion, which can lead to low serum sodium levels. We will continue to monitor. He has been taken off all antibiotics at this time. (4) Pleural effusion on left Current Visit: Yes Status: Acute Plan to address problem: Patient is on incentive spirometer. Management per pulmonology team.
--- NOTE | 2018-02-08 13:26 | Progress Note ---
Assessment and Plan Assessment and plan: Patient is a 27-year-old man with history of dyslipidemia who presented to [facility] ED with abdominal pains and constipation. He was found to have new onset DM with DKA and pancreatitis Acute severe pancreatitis, ?TGs related: advance diet to GI soft, pain control New onset DM with DKA: anion gap closed, off insulin drip, now on long acting, education done regarding OTC insulin if he has no insurance Leukocytosis and Sinus tachycardia, SIRS with organ dysfunction, poa: treat the underlying condition Fevers, ?pancreatits related vs underlying pna with pleural effusion vs other: get blood culture, abd xr, cxr, ua, started empiric abx IV zosyn==>cxr showed moderate to large pleural effusion, ID following Left Moderate Pleural Effusion most likely pancreatitis related vs PNA vs other, but defer to Pulmonology: gave lasix 40mg iv x 1 02/06/18 with good results but now electrolyte imbalances Hyponatremia at 127: consulted Nephrology Hypokalemia: replete and recheck in AM Thrombocytopenia: monitoring cbc daily DVT prophylaxis: on sq lovenox full code Disposition: continue inpatient care, stabilize sodium levels, work up the fevers and pulmonology to address the pleural effusion, ?thoracentesis needed. fever spike yesterday afternoon, CT abd/pelvis pending, re-consulted Pulmonology for the pleural effusion. History Interval history: Patient was seen and examined. Follow-up on current diagnosis abdominal pains, improved. Overnight uneventful. Patient denies any chest pain, shortness breath, nausea/vomiting or severe headaches. Imaging, nursing note, chart, labs and old chart reviewed. Discussed with patient. New issue is fevers. Hospitalist Physical - Physical exam Narrative exam: Gen: WDWN, NAD, Awake, Alert, Orientated x 3 HEENT: NCAT, EOMI, PERRL, OP Clear Neck: supple, no adenopathy, no thyromegaly, no JVD CVS/Heart: RRR, normal S1S2, pulses present bilaterally Chest/Lungs: CTA B, crackles at low left base, Symmetrical chest expansion, good air entry bilaterally GI/Abdomen: soft, epigastric tenderness, good bowel sounds, no guarding or rebound /Bladder: no suprapubic tenderness, no CVA or paraspinal tenderness Extermity/Skin: no c/c/e, no obvious rash MSK: FROM x 4 Neuro: CN 2-12 grossly intact, no new focal deficits Psych: calm - Constitutional Vitals: Temp Pulse Resp BP Pulse Ox 98.0 F 97 H 18 127/78 96 02/08/18 05:55 02/08/18 05:55 02/08/18 05:55 02/08/18 05:55 02/08/18 05:55 General appearance: Present: well-nourished Results - Labs CBC & Chem 7: 02/07/18 03:59 02/08/18 05:09 Labs: Laboratory Last Values WBC 8.5 K/mm3 (4.5-11.0) 02/07/18 03:59 RBC 5.07 M/mm3 (3.65-5.03) H 02/07/18 03:59 Hgb 14.7 gm/dl (11.8-15.2) 02/07/18 03:59 Hct 44.2 % (35.5-45.6) 02/07/18 03:59 MCV 87 fl (84-94) 02/07/18 03:59 MCH 29 pg (28-32) 02/07/18 03:59 MCHC 33 % (32-34) 02/07/18 03:59 RDW 14.7 % (13.2-15.2) 02/07/18 03:59 Plt Count 120 K/mm3 (140-440) L 02/07/18 03:59 Lymph % (Auto) 8.8 % (13.4-35.0) L 02/03/18 04:43 [place] % (Auto) 6.5 % (0.0-7.3) 02/03/18 04:43 Eos % (Auto) 0.0 % (0.0-4.3) 02/03/18 04:43 Baso % (Auto) 0.6 % (0.0-1.8) 02/03/18 04:43 Lymph # 1.4 K/mm3 (1.2-5.4) 02/03/18 04:43 [place] # 1.0 K/mm3 (0.0-0.8) H 02/03/18 04:43 Eos # 0.0 K/mm3 (0.0-0.4) 02/03/18 04:43 Baso # 0.1 K/mm3 (0.0-0.1) 02/03/18 04:43 Add Manual Diff Complete 02/02/18 11:47 Total Counted 100 02/02/18 11:47 Seg Neutrophils % 84.1 % (40.0-70.0) H 02/03/18 04:43 Seg Neuts % (Manual) 80.0 % (40.0-70.0) H 02/02/18 11:47 Band Neutrophils % 10.0 % 02/02/18 11:47 Lymphocytes % (Manual) 6.0 % (13.4-35.0) L 02/02/18 11:47 Reactive Lymphs % (Man) 0 % 02/02/18 11:47 Monocytes % (Manual) 3.0 % (0.0-7.3) 02/02/18 11:47 Eosinophils % (Manual) 0 % (0.0-4.3) 02/02/18 11:47 Basophils % (Manual) 0 % (0.0-1.8) 02/02/18 11:47 Metamyelocytes % 1.0 % 02/02/18 11:47 Myelocytes % 0 % 02/02/18 11:47 Promyelocytes % 0 % 02/02/18 11:47 Blast Cells % 0 % 02/02/18 11:47 Nucleated RBC % Not Reportable 02/02/18 11:47 Seg Neutrophils # 13.2 K/mm3 (1.8-7.7) H 02/03/18 04:43 Seg Neutrophils # Man 16.2 K/mm3 (1.8-7.7) H 02/02/18 11:47 Band Neutrophils # 2.0 K/mm3 02/02/18 11:47 Lymphocytes # (Manual) 1.2 K/mm3 (1.2-5.4) 02/02/18 11:47 Abs React Lymphs (Man) 0.0 K/mm3 02/02/18 11:47 Monocytes # (Manual) 0.6 K/mm3 (0.0-0.8) 02/02/18 11:47 Eosinophils # (Manual) 0.0 K/mm3 (0.0-0.4) 02/02/18 11:47 Basophils # (Manual) 0.0 K/mm3 (0.0-0.1) 02/02/18 11:47 Metamyelocytes # 0.2 K/mm3 02/02/18 11:47 Myelocytes # 0.0 K/mm3 02/02/18 11:47 Promyelocytes # 0.0 K/mm3 02/02/18 11:47 Blast Cells # 0.0 K/mm3 02/02/18 11:47 WBC Morphology Not Reportable 02/02/18 11:47 Hypersegmented Neuts Not Reportable 02/02/18 11:47 Hyposegmented Neuts Not Reportable 02/02/18 11:47 Hypogranular Neuts Not Reportable 02/02/18 11:47 Smudge Cells Not Reportable 02/02/18 11:47 Toxic Granulation Not Reportable 02/02/18 11:47 Toxic Vacuolation Not Reportable 02/02/18 11:47 Dohle Bodies Not Reportable 02/02/18 11:47 Pelger-Huet Anomaly Not Reportable 02/02/18 11:47 Ariadna Rods Not Reportable 02/02/18 11:47 Platelet Estimate Appears normal 02/02/18 11:47 Clumped Platelets Not Reportable 02/02/18 11:47 Plt Clumps, EDTA Not Reportable 02/02/18 11:47 Large Platelets Not Reportable 02/02/18 11:47 Giant Platelets Not Reportable 02/02/18 11:47 Platelet Satelliting Not Reportable 02/02/18 11:47 Plt Morphology Comment Not Reportable 02/02/18 11:47 RBC Morphology Not Reportable 02/02/18 11:47 Dimorphic RBCs Not Reportable 02/02/18 11:47 Polychromasia Not Reportable 02/02/18 11:47 Hypochromasia Not Reportable 02/02/18 11:47 Poikilocytosis Not Reportable 02/02/18 11:47 Anisocytosis 1+ 02/02/18 11:47 Microcytosis Not Reportable 02/02/18 11:47 Macrocytosis Not Reportable 02/02/18 11:47 Spherocytes Not Reportable 02/02/18 11:47 Pappenheimer Bodies Not Reportable 02/02/18 11:47 Sickle Cells Not Reportable 02/02/18 11:47 Target Cells Not Reportable 02/02/18 11:47 Tear Drop Cells Not Reportable 02/02/18 11:47 Ovalocytes 1+ 02/02/18 11:47 Helmet Cells Not Reportable 02/02/18 11:47 Colon-Seba [place] Bodies Not Reportable 02/02/18 11:47 [place] Rings Not Reportable 02/02/18 11:47 Lisa Cells 1+ 02/02/18 11:47 Bite Cells Not Reportable 02/02/18 11:47 Crenated Cell Not Reportable 02/02/18 11:47 Elliptocytes Not Reportable 02/02/18 11:47 Acanthocytes (Spur) Not Reportable 02/02/18 11:47 Rouleaux Not Reportable 02/02/18 11:47 Hemoglobin C Crystals Not Reportable 02/02/18 11:47 Schistocytes Not Reportable 02/02/18 11:47 Malaria parasites Not Reportable 02/02/18 11:47 [place] Bodies Not Reportable 02/02/18 11:47 Hem Pathologist Commnt No 02/02/18 11:47 Sodium 133 mmol/L (137-145) L 02/08/18 05:09 Potassium 3.6 mmol/L (3.6-5.0) 02/08/18 05:09 Chloride 95.1 mmol/L (98-107) L 02/08/18 05:09 Carbon Dioxide 21 mmol/L (22-30) L 02/08/18 05:09 Anion Gap 21 mmol/L 02/08/18 05:09 BUN 11 mg/dL (9-20) 02/08/18 05:09 Creatinine 0.7 mg/dL (0.8-1.5) L 02/08/18 05:09 Estimated GFR > 60 ml/min 02/08/18 05:09 BUN/Creatinine Ratio 16 % 02/08/18 05:09 Glucose 202 mg/dL (75-100) H 02/08/18 05:09 POC Glucose 233 (70-105) H 02/08/18 11:28 Osmolality 280 Mosm/kg 02/08/18 10:07 Calcium 8.5 mg/dL (8.4-10.2) 02/08/18 05:09 Phosphorus 3.88 mg/dL (2.5-4.5) 02/02/18 14:17 Magnesium 1.70 mg/dL (1.7-2.3) 02/05/18 02:31 Total Bilirubin 0.60 mg/dL (0.1-1.2) 02/03/18 04:43 AST 23 units/L (5-40) 02/03/18 04:43 ALT 18 units/L (7-56) 02/03/18 04:43 Alkaline Phosphatase 43 units/L (35-129) 02/03/18 04:43 Total Protein 5.7 g/dL (6.3-8.2) L 02/03/18 04:43 Albumin 3.2 g/dL (3.9-5) L 02/03/18 04:43 Albumin/Globulin Ratio 1.3 % 02/03/18 04:43 Triglycerides 301.2 mg/dL (2-149) H 02/02/18 14:17 Cholesterol 27.6 mg/dL (50-199) L 02/02/18 14:17 LDL Cholesterol Direct 0 mg/dL (50-130) L 02/02/18 14:17 HDL Cholesterol 13.2 mg/dL (40-59) L 02/02/18 14:17 Cholesterol/HDL Ratio 2.00 % 02/02/18 14:17 Amylase 448.8 units/L (27-131) H 02/02/18 14:17 Lipase 141 units/L (13-60) H 02/03/18 04:43 Urine Color Agnes (Yellow) 02/07/18 07:06 Urine Turbidity Clear (Clear) 02/07/18 07:06 Urine pH 6.0 (5.0-7.0) 02/07/18 07:06 Ur Specific [place] 1.028 (1.003-1.030) 02/07/18 07:06 Urine Protein 30 mg/dl mg/dL (Negative) 02/07/18 07:06 Urine Glucose (UA) >=500 mg/dL (Negative) 02/07/18 07:06 Urine Ketones Tr mg/dL (Negative) 02/07/18 07:06 Urine Blood Neg (Negative) 02/07/18 07:06 Urine Nitrite Neg (Negative) 02/07/18 07:06 Urine Bilirubin Neg (Negative) 02/07/18 07:06 Urine Urobilinogen 4.0 mg/dL (<2.0) 02/07/18 07:06 Ur Leukocyte Esterase Neg (Negative) 02/07/18 07:06 Urine WBC (Auto) 1.0 /HPF (0.0-6.0) 02/07/18 07:06 Urine RBC (Auto) 3.0 /HPF (0.0-6.0) 02/07/18 07:06 Urine Mucus Few /HPF 02/07/18 07:06 Urine Opiates Screen Presumptive negative 02/02/18 17:12 Urine Methadone Screen Presumptive negative 02/02/18 17:12 Ur Barbiturates Screen Presumptive negative 02/02/18 17:12 Ur Phencyclidine Scrn Presumptive negative 02/02/18 17:12 Ur Amphetamines Screen Presumptive negative 02/02/18 17:12 U Benzodiazepines Scrn Presumptive negative 02/02/18 17:12 Urine Cocaine Screen Presumptive negative 02/02/18 17:12 U Marijuana (THC) Screen Presumptive negative 02/02/18 17:12 Drugs of Abuse Note Disclamer 02/02/18 17:12 Nutrition/Malnutrition Assess - Dietary Evaluation Nutrition/Malnutrition Findings: Nutrition Notes Start: 02/03/18 10:01 Freq: Status: Active Protocol: Document 02/03/18 10:01 (Rec: 02/03/18 10:11 TW [id number]) Co-Sign 02/03/18 10:01 ANKURALL Nutrition Notes Need for Assessment generated from: Education Initial or Follow up Assessment Current Diagnoses Diabetes Current Diet NPO Labs/Tests Reviewed. Medications Reviewed. Height 6 ft 2 in Weight 98.9 kg [place] Body Weight (lbs) 190.0 BMI 28.0 Weight Status Overweight Subjective/Other Information MD consult for DKA diet education. Pt stated he is eating well and is aware of high BG. Provided DKA education and handout. Burn Absent Trauma Absent #1 Nutrition Diagnoses Food and nutrition-related knowledge deficit Etiology limited exposure to DKA education As Evidenced by Signs and Symptoms elevated blood sugar Is patient on ventilator? No Is Patient Ambulatory and/or Out of Bed No REE-([facility]-confined to bed) 0546.096 Calculation Used for Recommendations [facility] Nutrition Intervention Teaching Recipient Patient Learning Readiness Good Teaching Methods Discussion Handout Response to Teaching Verbalize understanding Education Handouts Provided CHO Counting for people with DM. Barriers to Learning No Barriers RD phone number provided Yes Patient aware of follow up options Yes Goal #1 Blood Sugar control Goal #2 Adhere to CHO control diet Anticipated Discharge Needs: CHO controlled diet Revisit per MD consult or patient Sign Off request:
--- NOTE | 2018-02-08 16:10 | Progress Note ---
Assessment and Plan Imp: 1. Acute pancreatitis 2. DKA 3. SIRS 4. L pleural effusion, ? due to #1 Rec: 1. Will f/u on CT a/p ordered for today to get a better image of the L base, but he will likely need a thoracentesis as he has at least a moderate effusion on L on exam today; risks of the procedure discussed and he is willing to proceed if need be 2. F/u ID, renal recs, etc. 3. Will follow with you Plan of care reviewed w/ patient, he understands/agrees Subjective Date of service: 02/08/18 Principal diagnosis: pancreatitis, DKA Interval history: No events. Has had some SOB. On RA. Abd pain better. Tolerating PO. Active Medications Acetaminophen (Tylenol) 650 mg PO Q4H PRN PRN Reason: Pain MILD(1-3)/Fever >100.5/RODRIGUEZ Last Admin: 02/07/18 14:23 Dose: 650 mg Documented by: Dextrose (D50w (25gm) Syringe) 50 ml IV PRN PRN PRN Reason: Hypoglycemia Enoxaparin Sodium (Lovenox) 40 mg SUB-Q QDAY@1000 [facility] Last Admin: 02/08/18 09:13 Dose: 40 mg Documented by: Famotidine (Pepcid) 20 mg PO BID [facility] Last Admin: 02/08/18 09:13 Dose: 20 mg Documented by: Hydromorphone HCl (Dilaudid) 1 mg IV Q3H PRN PRN Reason: Pain, Moderate (4-6) Last Admin: 02/08/18 00:57 Dose: 1 mg Documented by: Insulin Human NPH (Humulin N) 15 unit SUB-Q BIDDIAB [facility] Last Admin: 02/08/18 09:13 Dose: 15 unit Documented by: Insulin Human Regular (Humulin R) 0 units SUB-Q Q6HR [facility]; Protocol Last Admin: 02/08/18 12:37 Dose: 4 units Documented by: Ondansetron HCl (Zofran) 4 mg IV Q8H PRN PRN Reason: Nausea And Vomiting Sodium Chloride (Sodium Chloride Flush Syringe 10 Ml) 10 ml IV BID [facility] Last Admin: 02/08/18 09:13 Dose: 10 ml Documented by: Sodium Chloride (Sodium Chloride Flush Syringe 10 Ml) 10 ml IV PRN PRN PRN Reason: LINE FLUSH Objective Vital Signs - 12hr 02/08/18 02/08/18 02/08/18 05:55 11:27 12:00 Temperature 98.0 F 99.4 F Pulse Rate 97 H 98 H Pulse Rate [ 97 H Right Radial] Respiratory 18 22 20 Rate Blood Pressure 127/78 128/77 O2 Sat by Pulse 96 95 Oximetry Constitutional: no acute distress Eyes: non-icteric ENT: oropharynx moist Neck: supple, no lymphadenopathy Effort: normal Ascultation: Left: diminished breath sounds (base) Percussion: Left: dull (base) Tactile fremitus: Left: diminished (base) Cardiovascular: regular rate and rhythm (no mrg) Gastrointestinal: normoactive bowel sounds, non-distended Integumentary: normal Extremities: no cyanosis, no cyanosis, no cyanosis Neurologic: normal mental status, non-focal exam Psychiatric: mood appropriate, affect normal CBC and BMP: 02/07/18 03:59 02/08/18 05:09 Abnormal lab findings: Abnormal Labs 02/02/18 02/02/18 02/02/18 11:47 14:17 16:58 WBC 20.3 H RBC 5.97 H Hgb Hct 51.5 H MCHC Plt Count Lymph % (Auto) [place] # Seg Neutrophils % Seg Neuts % (Manual) 80.0 H Lymphocytes % (Manual) 6.0 L Seg Neutrophils # Seg Neutrophils # Man 16.2 H Sodium Potassium Chloride 96 L Carbon Dioxide 12 L BUN Creatinine Glucose 390 H POC Glucose 322 H Calcium Magnesium 1.64 L AST ALT Total Protein Albumin Triglycerides 301.2 H Cholesterol 27.6 L LDL Cholesterol Direct 0 L HDL Cholesterol 13.2 L Amylase 448.8 H Lipase > 300 H 02/02/18 02/02/18 02/02/18 19:31 20:19 20:34 WBC RBC Hgb Hct MCHC Plt Count Lymph % (Auto) [place] # Seg Neutrophils % Seg Neuts % (Manual) Lymphocytes % (Manual) Seg Neutrophils # Seg Neutrophils # Man Sodium 129 L D Potassium Chloride 97.2 L Carbon Dioxide 11 L BUN Creatinine 0.5 L Glucose 293 H POC Glucose 281 H 246 H Calcium 7.1 L D Magnesium AST < 5 L ALT < 5 L Total Protein 5.0 L D Albumin 3.2 L Triglycerides Cholesterol LDL Cholesterol Direct HDL Cholesterol Amylase Lipase 02/02/18 02/02/18 02/02/18 21:11 21:32 22:37 WBC RBC Hgb Hct MCHC Plt Count Lymph % (Auto) [place] # Seg Neutrophils % Seg Neuts % (Manual) Lymphocytes % (Manual) Seg Neutrophils # Seg Neutrophils # Man Sodium 129 L Potassium Chloride 97.3 L Carbon Dioxide 12 L BUN Creatinine 0.5 L Glucose 277 H POC Glucose 246 H 262 H Calcium 2.4 L* D Magnesium AST ALT Total Protein Albumin Triglycerides Cholesterol LDL Cholesterol Direct HDL Cholesterol Amylase Lipase 02/02/18 02/02/18 02/03/18 23:01 23:29 00:25 WBC RBC Hgb Hct MCHC Plt Count Lymph % (Auto) [place] # Seg Neutrophils % Seg Neuts % (Manual) Lymphocytes % (Manual) Seg Neutrophils # Seg Neutrophils # Man Sodium 130 L Potassium Chloride Carbon Dioxide 11 L BUN Creatinine 0.7 L Glucose 268 H POC Glucose 226 H 229 H Calcium 7.0 L D Magnesium AST ALT Total Protein Albumin Triglycerides Cholesterol LDL Cholesterol Direct HDL Cholesterol Amylase Lipase 02/03/18 02/03/18 02/03/18 00:58 01:37 02:33 WBC RBC Hgb Hct MCHC Plt Count Lymph % (Auto) [place] # Seg Neutrophils % Seg Neuts % (Manual) Lymphocytes % (Manual) Seg Neutrophils # Seg Neutrophils # Man Sodium 132 L Potassium Chloride Carbon Dioxide 12 L BUN Creatinine 0.5 L Glucose 240 H POC Glucose 226 H 221 H Calcium 6.8 L Magnesium AST ALT Total Protein Albumin Triglycerides Cholesterol LDL Cholesterol Direct HDL Cholesterol Amylase Lipase 02/03/18 02/03/18 02/03/18 04:08 04:43 04:43 WBC 15.7 H RBC 5.88 H Hgb 18.1 H Hct 50.9 H MCHC 36 H Plt Count Lymph % (Auto) 8.8 L [place] # 1.0 H Seg Neutrophils % 84.1 H Seg Neuts % (Manual) Lymphocytes % (Manual) Seg Neutrophils # 13.2 H Seg Neutrophils # Man Sodium 135 L Potassium Chloride Carbon Dioxide 11 L BUN 8 L Creatinine 0.7 L Glucose 271 H POC Glucose 209 H Calcium 7.0 L Magnesium AST ALT Total Protein 5.7 L Albumin 3.2 L Triglycerides Cholesterol LDL Cholesterol Direct HDL Cholesterol Amylase Lipase 141 H 02/03/18 02/03/18 02/03/18 04:56 05:59 07:05 WBC RBC Hgb Hct MCHC Plt Count Lymph % (Auto) [place] # Seg Neutrophils % Seg Neuts % (Manual) Lymphocytes % (Manual) Seg Neutrophils # Seg Neutrophils # Man Sodium Potassium Chloride Carbon Dioxide BUN Creatinine Glucose POC Glucose 242 H 200 H 171 H Calcium Magnesium AST ALT Total Protein Albumin Triglycerides Cholesterol LDL Cholesterol Direct HDL Cholesterol Amylase Lipase 02/03/18 02/03/18 02/03/18 08:09 09:02 10:11 WBC RBC Hgb Hct MCHC Plt Count Lymph % (Auto) [place] # Seg Neutrophils % Seg Neuts % (Manual) Lymphocytes % (Manual) Seg Neutrophils # Seg Neutrophils # Man Sodium Potassium Chloride Carbon Dioxide BUN Creatinine Glucose POC Glucose 209 H 226 H 204 H Calcium Magnesium AST ALT Total Protein Albumin Triglycerides Cholesterol LDL Cholesterol Direct HDL Cholesterol Amylase Lipase 02/03/18 02/03/18 02/03/18 11:11 12:09 13:18 WBC RBC Hgb Hct MCHC Plt Count Lymph % (Auto) [place] # Seg Neutrophils % Seg Neuts % (Manual) Lymphocytes % (Manual) Seg Neutrophils # Seg Neutrophils # Man Sodium Potassium Chloride Carbon Dioxide BUN Creatinine Glucose POC Glucose 185 H 164 H 160 H Calcium Magnesium AST ALT Total Protein Albumin Triglycerides Cholesterol LDL Cholesterol Direct HDL Cholesterol Amylase Lipase 02/03/18 02/03/18 02/03/18 14:31 15:32 16:58 WBC RBC Hgb Hct MCHC Plt Count Lymph % (Auto) [place] # Seg Neutrophils % Seg Neuts % (Manual) Lymphocytes % (Manual) Seg Neutrophils # Seg Neutrophils # Man Sodium Potassium Chloride Carbon Dioxide BUN Creatinine Glucose POC Glucose 190 H 170 H 145 H Calcium Magnesium AST ALT Total Protein Albumin Triglycerides Cholesterol LDL Cholesterol Direct HDL Cholesterol Amylase Lipase 02/03/18 02/03/18 02/03/18 17:23 18:19 20:09 WBC RBC Hgb Hct MCHC Plt Count Lymph % (Auto) [place] # Seg Neutrophils % Seg Neuts % (Manual) Lymphocytes % (Manual) Seg Neutrophils # Seg Neutrophils # Man Sodium 135 L Potassium Chloride 107.5 H Carbon Dioxide 15 L BUN 7 L Creatinine 0.6 L Glucose 173 H POC Glucose 171 H 157 H Calcium 7.2 L Magnesium AST ALT Total Protein Albumin Triglycerides Cholesterol LDL Cholesterol Direct HDL Cholesterol Amylase Lipase 02/03/18 02/03/18 02/03/18 20:52 22:12 23:15 WBC RBC Hgb Hct MCHC Plt Count Lymph % (Auto) [place] # Seg Neutrophils % Seg Neuts % (Manual) Lymphocytes % (Manual) Seg Neutrophils # Seg Neutrophils # Man Sodium Potassium Chloride Carbon Dioxide BUN Creatinine Glucose POC Glucose 144 H 156 H 153 H Calcium Magnesium AST ALT Total Protein Albumin Triglycerides Cholesterol LDL Cholesterol Direct HDL Cholesterol Amylase Lipase 02/04/18 02/04/18 02/04/18 00:26 00:42 01:24 WBC RBC Hgb Hct MCHC Plt Count Lymph % (Auto) [place] # Seg Neutrophils % Seg Neuts % (Manual) Lymphocytes % (Manual) Seg Neutrophils # Seg Neutrophils # Man Sodium 133 L Potassium Chloride Carbon Dioxide 17 L BUN 8 L Creatinine 0.5 L Glucose 158 H POC Glucose 139 H 126 H Calcium 7.2 L Magnesium AST ALT Total Protein Albumin Triglycerides Cholesterol LDL Cholesterol Direct HDL Cholesterol Amylase Lipase 02/04/18 02/04/18 02/04/18 02:16 03:33 04:54 WBC RBC Hgb Hct MCHC Plt Count Lymph % (Auto) [place] # Seg Neutrophils % Seg Neuts % (Manual) Lymphocytes % (Manual) Seg Neutrophils # Seg Neutrophils # Man Sodium 134 L Potassium Chloride Carbon Dioxide 18 L BUN 8 L Creatinine 0.6 L Glucose 119 H POC Glucose 159 H 113 H Calcium 7.6 L Magnesium AST ALT Total Protein Albumin Triglycerides Cholesterol LDL Cholesterol Direct HDL Cholesterol Amylase Lipase 02/04/18 02/04/18 02/04/18 04:57 07:49 09:30 WBC RBC Hgb Hct MCHC Plt Count Lymph % (Auto) [place] # Seg Neutrophils % Seg Neuts % (Manual) Lymphocytes % (Manual) Seg Neutrophils # Seg Neutrophils # Man Sodium Potassium Chloride Carbon Dioxide BUN Creatinine Glucose POC Glucose 106 H 151 H 177 H Calcium Magnesium AST ALT Total Protein Albumin Triglycerides Cholesterol LDL Cholesterol Direct HDL Cholesterol Amylase Lipase 02/04/18 02/04/18 02/04/18 10:54 12:39 13:10 WBC RBC Hgb Hct MCHC Plt Count Lymph % (Auto) [place] # Seg Neutrophils % Seg Neuts % (Manual) Lymphocytes % (Manual) Seg Neutrophils # Seg Neutrophils # Man Sodium 132 L Potassium Chloride Carbon Dioxide 18 L BUN 8 L Creatinine 0.6 L Glucose 171 H POC Glucose 185 H 155 H Calcium 8.0 L Magnesium AST ALT Total Protein Albumin Triglycerides Cholesterol LDL Cholesterol Direct HDL Cholesterol Amylase Lipase 02/04/18 02/05/18 02/05/18 17:36 00:34 02:31 WBC RBC Hgb Hct MCHC Plt Count 84 L Lymph % (Auto) [place] # Seg Neutrophils % Seg Neuts % (Manual) Lymphocytes % (Manual) Seg Neutrophils # Seg Neutrophils # Man Sodium Potassium Chloride Carbon Dioxide BUN Creatinine Glucose POC Glucose 201 H 200 H Calcium Magnesium AST ALT Total Protein Albumin Triglycerides Cholesterol LDL Cholesterol Direct HDL Cholesterol Amylase Lipase 02/05/18 02/05/18 02/05/18 02:31 06:18 11:28 WBC RBC Hgb Hct MCHC Plt Count Lymph % (Auto) [place] # Seg Neutrophils % Seg Neuts % (Manual) Lymphocytes % (Manual) Seg Neutrophils # Seg Neutrophils # Man Sodium 132 L Potassium Chloride Carbon Dioxide 21 L BUN 8 L Creatinine 0.6 L Glucose 203 H POC Glucose 196 H 257 H Calcium 8.1 L Magnesium AST ALT Total Protein Albumin Triglycerides Cholesterol LDL Cholesterol Direct HDL Cholesterol Amylase Lipase 02/05/18 02/06/18 02/06/18 17:23 00:04 02:09 WBC RBC Hgb Hct MCHC Plt Count 101 L Lymph % (Auto) [place] # Seg Neutrophils % Seg Neuts % (Manual) Lymphocytes % (Manual) Seg Neutrophils # Seg Neutrophils # Man Sodium Potassium Chloride Carbon Dioxide BUN Creatinine Glucose POC Glucose 230 H 198 H Calcium Magnesium AST ALT Total Protein Albumin Triglycerides Cholesterol LDL Cholesterol Direct HDL Cholesterol Amylase Lipase 02/06/18 02/06/18 02/06/18 02:09 05:11 12:05 WBC RBC Hgb Hct MCHC Plt Count Lymph % (Auto) [place] # Seg Neutrophils % Seg Neuts % (Manual) Lymphocytes % (Manual) Seg Neutrophils # Seg Neutrophils # Man Sodium 131 L Potassium 3.2 L Chloride 95.5 L Carbon Dioxide 21 L BUN Creatinine 0.6 L Glucose 229 H POC Glucose 234 H 195 H Calcium 8.2 L Magnesium AST ALT Total Protein Albumin Triglycerides Cholesterol LDL Cholesterol Direct HDL Cholesterol Amylase Lipase 02/06/18 02/06/18 02/07/18 16:30 21:18 03:59 WBC RBC 5.07 H Hgb Hct MCHC Plt Count 120 L Lymph % (Auto) [place] # Seg Neutrophils % Seg Neuts % (Manual) Lymphocytes % (Manual) Seg Neutrophils # Seg Neutrophils # Man Sodium Potassium Chloride Carbon Dioxide BUN Creatinine Glucose POC Glucose 196 H 249 H Calcium Magnesium AST ALT Total Protein Albumin Triglycerides Cholesterol LDL Cholesterol Direct HDL Cholesterol Amylase Lipase 02/07/18 02/07/18 02/07/18 03:59 06:37 11:36 WBC RBC Hgb Hct MCHC Plt Count Lymph % (Auto) [place] # Seg Neutrophils % Seg Neuts % (Manual) Lymphocytes % (Manual) Seg Neutrophils # Seg Neutrophils # Man Sodium 127 L Potassium 3.5 L Chloride 85.1 L Carbon Dioxide 20 L BUN Creatinine 0.5 L Glucose 211 H POC Glucose 211 H 230 H Calcium 8.1 L Magnesium AST ALT Total Protein Albumin Triglycerides Cholesterol LDL Cholesterol Direct HDL Cholesterol Amylase Lipase 02/07/18 02/07/18 02/08/18 16:45 21:58 05:09 WBC RBC Hgb Hct MCHC Plt Count Lymph % (Auto) [place] # Seg Neutrophils % Seg Neuts % (Manual) Lymphocytes % (Manual) Seg Neutrophils # Seg Neutrophils # Man Sodium 133 L Potassium Chloride 95.1 L Carbon Dioxide 21 L BUN Creatinine 0.7 L Glucose 202 H POC Glucose 185 H 196 H Calcium Magnesium AST ALT Total Protein Albumin Triglycerides Cholesterol LDL Cholesterol Direct HDL Cholesterol Amylase Lipase 02/08/18 02/08/18 08:11 11:28 WBC RBC Hgb Hct MCHC Plt Count Lymph % (Auto) [place] # Seg Neutrophils % Seg Neuts % (Manual) Lymphocytes % (Manual) Seg Neutrophils # Seg Neutrophils # Man Sodium Potassium Chloride Carbon Dioxide BUN Creatinine Glucose POC Glucose 188 H 233 H Calcium Magnesium AST ALT Total Protein Albumin Triglycerides Cholesterol LDL Cholesterol Direct HDL Cholesterol Amylase Lipase Chest x-ray: report reviewed, image reviewed
--- NOTE | 2018-02-08 20:16 | Cat Scan Report ---
FINAL REPORT PROCEDURE: CT ABDOMEN PELVIS W CON TECHNIQUE: Computerized axial tomography of the abdomen and pelvis was performed after the IV inject ion of iodinated nonionic contrast. HISTORY: Fever. Eval for necrotizing pancreatitis COMPARISON: No prior studies are available for comparison. FINDINGS: Lower Lung weaver: Thin linear band of atelectasis seen in the right lung base. Moderate-size left pl eural effusion partially visualized. There is dense consolidation in the adjacent left lower lobe wit h air bronchograms suggesting atelectasis or pneumonia. Upper Abdomen: Liver density is diffusely decreased consistent with fatty infiltration. There appears to be mild sparing of fatty infiltration adjacent to the gallbladder fossa. The liver is otherwise u nremarkable. There is subtle density difference in the dependent portion the gallbladder which is mor e dense than the nondependent portion. This may represent sludge and/or noncalcified gallstones. Gall bladder is otherwise unremarkable. Intrahepatic ducts are not distended. The adrenal glands are unrem arkable. Small cystic areas are seen developing in the body of the pancreas measuring up to 1.5 centi meters. These may represent developing pseudocyst. Small cystic neoplasm of the pancreas not entirely excluded. There is mild heterogeneous density of the pancreas although still appears to be enhancing . There is moderate amount of fluid dense material surrounding the body and tail of the pancreas. The fluid is also extending along the anterior aspect of Gerota's fascia and partially surrounding the s pleen. Moderate amount of phlegmon appears to be present.. Kidneys, Ureters and Urinary bladder: The above-mentioned inflammatory change extends along the anter ior aspect of Gerota's fascia on the left and also extends partially into the left perinephric space. The kidneys, the ureters and urinary bladder otherwise are unremarkable. Retroperitoneum: Atherosclerotic changes are seen in the abdominal aorta. No aneurysm is visualized. Nonspecific subcentimeter lymph nodes are seen in the retroperitoneum. No pathologically enlarged lym ph nodes are identified. Bowel: No focal bowel loop abnormalities are seen. No evidence of bowel obstruction. There is no free intraperitoneal gas. Normal-appearing appendix is seen in the right lower quadrant. Reproductive organs: Prostate gland is not appear to be enlarged. Other: No acute bony abnormalities are seen. IMPRESSION: Diffuse inflammatory change seen involving the body and tail the pancreas as well as extending into t he adjacent soft tissues as described consistent with pancreatitis. Small cystic change seen in the b kayley of the pancreas as described measuring up to 1.5 centimeter may represent developing pseudocyst. Cystic neoplasm is not entirely excluded. The remainder of the pancreas appears to be enhancing mildl y heterogeneous although I do not see any marked decreased enhancement to suggest necrosis. If there is concern for infected pseudocyst or infected phlegmon percutaneous sampling may be helpful. Phlegmon appears to be developing around the pancreas and partially surrounding spleen and extending anterior to the left kidney with some of the inflammatory change extending into the left perinephric space. At this time the left kidney is otherwise unremarkable. Fatty infiltration of the liver. The moderate-sized left pleural effusion present. Dense consolidatio n seen left lower lobe suggesting atelectasis or pneumonia. Heterogeneous density seen in the gallbladder. This could represent sludge or noncalcified gallstones . If clinically indicated gallbladder ultrasound could be obtained for further evaluation.
[2018-02-09 06:30] LABS: BUN/Creatinine Ratio 14; Blood Urea Nitrogen 10 mg/dL (9-20); Calcium 8.7 mg/dL (8.4-10.2); Hemolysis Index 5
--- NOTE | 2018-02-09 08:39 | Progress Note ---
Assessment and Plan - Patient Problems (1) Hyponatremia Current Visit: Yes Status: Acute Plan to address problem: Hyponatremia in the setting of hyperglycemia, hyperlipidemia, abdominal pain and discomfort from acute pancreatitis. Overall serum sodium levels are stable. Will continue to monitor. Corrected sodium levels would be ~137. (2) Diabetes mellitus Current Visit: Yes Status: Acute Plan to address problem: Patient with initial presentation of DKA in the setting of new onset diabetes. Currently on insulin regimen. Management per primary team. (3) Acute pancreatitis Current Visit: Yes Status: Acute Plan to address problem: Overall pain management seems to be improving. He is slowly increasing his overall diet. Increased pain can stimulate ADH secretion, which can lead to low serum sodium levels. We will continue to monitor. He has been taken off all antibiotics at this time. CT abd/pelvis findings noted. (4) Pleural effusion on left Current Visit: Yes Status: Acute Plan to address problem: Patient is on incentive spirometer. Management per pulmonology team. Subjective Date of service: 02/09/18 Principal diagnosis: pancreatitis, DKA Interval history: No acute events overnight, Labs noted, overall renal function stable. Corrected serum sodium ~137. S/P CT abd/pelvis with findings noted, Objective - Vital Signs Vital signs: Vital Signs - 12hr 02/08/18 02/09/18 23:38 04:50 Temperature 99.0 F 98.2 F Pulse Rate 91 H 82 Respiratory 18 24 Rate Blood Pressure 126/79 119/76 O2 Sat by Pulse 95 97 Oximetry - General Appearance General appearance: well-developed, well-nourished, appears stated age EENT: ATNC, PERRL Neck: no JVD, no thyromegaly Respiratory: Present: Decreased Breath Sounds (left lung base ) Cardiology: regular, S1S2 Gastrointestinal: normal, normoactive bowel sounds Integumentary: no rash, warm and dry Neurologic: no focal deficit, alert and oriented x3 Musculoskeletal: other (-edema ) Psychiatric: mood/affect appropriate, cooperative - Lab 02/07/18 03:59 02/09/18 04:30 Most recent lab results Calcium 8.7 mg/dL (8.4-10.2) 02/09/18 04:30 Phosphorus 3.88 mg/dL (2.5-4.5) 02/02/18 14:17 Magnesium 1.70 mg/dL (1.7-2.3) 02/05/18 02:31 - Allied health notes Allied health notes reviewed: nursing Medications & Allergies - Medications Allergies/Adverse Reactions: Allergies No Known Allergies Allergy (Unverified 02/02/18 09:56) Home Medications: Home Medications Medication Instructions Recorded Confirmed Last Taken Type No Known Home Medications [No 02/02/18 02/02/18 Unknown History Reported Home Medications] Active Medications: Generic Name Dose Route Start Last Admin Trade Name Freq PRN Reason Stop Dose Admin Acetaminophen 650 mg 02/02/18 16:50 02/07/18 14:23 Tylenol PO 650 mg Q4H PRN Administration Pain MILD(1-3)/Fever >100.5/RODRIGUEZ Dextrose 50 ml 02/04/18 12:08 D50w (25gm) Syringe IV PRN PRN Hypoglycemia Enoxaparin Sodium 40 mg 02/03/18 12:00 02/08/18 09:13 Lovenox SUB-Q 40 mg QDAY@1000 [facility] Administration Famotidine 20 mg 02/06/18 10:00 02/08/18 22:54 Pepcid PO 20 mg BID [facility] Administration Hydromorphone HCl 1 mg 02/02/18 16:50 02/08/18 23:14 Dilaudid IV 1 mg Q3H PRN Administration Pain, Moderate (4-6) Insulin Human NPH 15 unit 02/06/18 17:00 02/08/18 16:43 Humulin N SUB-Q 15 unit BIDDIAB [facility] Administration Insulin Human Regular 0 units 02/04/18 13:00 02/08/18 18:26 Humulin R SUB-Q 3 units Q6HR [facility] Administration Protocol Ondansetron HCl 4 mg 02/02/18 16:50 Zofran IV Q8H PRN Nausea And Vomiting Sodium Chloride 10 ml 02/02/18 22:00 02/08/18 23:15 Sodium Chloride Flush Syringe 10 Ml IV 10 ml BID [facility] Administration Sodium Chloride 10 ml 02/02/18 16:50 Sodium Chloride Flush Syringe 10 Ml IV PRN PRN LINE FLUSH
[2018-02-09] MEDS: HumuLIN R SUB-Q SCH ×5 (09:23→22:20)
[2018-02-09] MEDS: PEPCID PO SCH ×2 (10:52→22:13)
[2018-02-09] MEDS: SODIUM CHLORIDE FLUSH SYRINGE 10 ML IV SCH ×2 (10:52→22:13)
[2018-02-09] MEDS: LOVENOX SUB-Q SCH (10:52)
--- NOTE | 2018-02-09 11:28 | Progress Note ---
Assessment and Plan Cultures: 02/03/2018 blood culture: No growth 02/06/2018 blood culture: No growth A/P: 27-year-old male with no significant past medical history other than hyperlipidemia presented to the emergency room on 02/02/2018 with complaints of severe abdominal pain. He was found to have acute pancreatitis as well as new onset diabetes mellitus. Now with: 1) Fevers: Continuing , Likely related to the acute inflammatory state secondary to acute pancreatitis v/s left effusion and atelectasis. Overall clinically though patient is feeling better. Abdominal pain is improving with a gradually advanced diet. He does have evidence of left-sided pleural effusion probably related to his pancreatitis. May have some underlying atelectasis related to this. WBC count is normal. He is stable hemodynamically. For now, recommend watching off antibiotics and monitoring fever curve. CT of Abdomen and pelvis revealed pancreas measuring 1.5 centimeter, may represent developing pseudocyst. Cystic neoplasm is not entirely excluded. 2) Left-sided pleural effusion with likely underlying atelectasis: Recommend incentive spirometry. Getting lasix as needed. 3) acute pancreatitis: diet slowly being advanced. Recs: Continue Incentive spirometry Continue off antibiotics , monitor fever curve [facility] M: [id number] O:[phone] Subjective Date of service: 02/09/18 Principal diagnosis: pancreatitis, DKA Interval history: Patient seen and examined. Reports feeling better today. Denies generalized pain or weakness. Reports that he is still unable to take a deep breath without minor discomfort, Objective - Exam Narrative Exam: Physical Exam: Constitutional: Alert, cooperative. No acute distress Head, Ears, Nose: Normocephalic, atraumatic. External ears, nose normal Eyes: Conjunctivae/corneas clear. No icterus. No ptosis. Neck: Supple, no meningeal signs Oral: dentition fair, no thrush Cardiovascular: S1, S2 normal. Respiratory: air entry reduced in left base. GI: Soft, LUQ and epigastric tenderness; bowel sounds normal. No peritoneal signs Musculoskeletal: No pedal edema, no cyanosis. Skin: No rash or abscess Hem/Lymphatic: No palpable cervical or supraclavicular nodes. No lymphangitis Psych: Mood ok. Affect normal Neurological: Awake, alert, oriented. No gross abnormality - Constitutional Vitals: Vital Signs Temp Pulse Resp BP Pulse Ox 98.2 F 82 24 119/76 97 02/09/18 04:50 02/09/18 04:50 02/09/18 04:50 02/09/18 04:50 02/09/18 04:50 Temperature -Last 24 Hours Temperature 98.2 F Temperature 99.0 F Temperature 100.6 F - Labs CBC & Chem 7: 02/07/18 03:59 02/09/18 04:30 Labs: Abnormal lab results 02/08/18 02/08/18 02/08/18 Range/Units 11:28 16:39 20:46 Sodium (137-145) mmol/L Chloride (98-107) mmol/L Creatinine (0.8-1.5) mg/dL Glucose (75-100) mg/dL POC Glucose 233 H 203 H 207 H (70-105) 02/09/18 02/09/18 Range/Units 04:30 07:54 Sodium 135 L (137-145) mmol/L Chloride 97.2 L (98-107) mmol/L Creatinine 0.7 L (0.8-1.5) mg/dL Glucose 197 H (75-100) mg/dL POC Glucose 181 H (70-105)
[2018-02-09] MEDS: DILAUDID IV PRN (11:39)
[2018-02-09 13:19] LABS: Chloride, Urine 62.2 mmolL (110-250); Potassium, Urine 20.83 mmol/L
--- NOTE | 2018-02-09 13:44 | Progress Note ---
Assessment and Plan Assessment and plan: Patient is a 27-year-old man with history of dyslipidemia who presented to [facility] ED with abdominal pains and constipation. He was found to have new onset DM with DKA and pancreatitis Acute severe pancreatitis, ?TGs related: advance diet to GI soft, pain control New onset DM with DKA: anion gap closed, off insulin drip, now on long acting, education done regarding OTC insulin if he has no insurance Leukocytosis and Sinus tachycardia, SIRS with organ dysfunction, poa: treat the underlying condition Fevers, ?pancreatits related vs underlying pna with pleural effusion vs other: get blood culture, abd xr, cxr, ua, started empiric abx IV zosyn==>cxr showed moderate to large pleural effusion, ID following Left Moderate Pleural Effusion most likely pancreatitis related vs PNA vs other, but defer to Pulmonology: gave lasix 40mg iv x 1 02/06/18 with good results but now electrolyte imbalances Hyponatremia at 127: consulted Nephrology Hypokalemia: replete and recheck in AM Thrombocytopenia: monitoring cbc daily DVT prophylaxis: on sq lovenox full code Disposition: continue inpatient care, stabilize sodium levels, work up the fevers and pulmonology to address the pleural effusion, CT abd/pelvis noted, re-consulted and d/w GI, Dr. John Burden. Thoracentesis needed per Pulmonology History Interval history: Patient was seen and examined. Follow-up on current diagnosis abdominal pains, improved. Overnight uneventful. Patient denies any chest pain, shortness breath, nausea/vomiting or severe headaches. Imaging, nursing note, chart, labs and old chart reviewed. Discussed with patient. New issue is fevers. Hospitalist Physical - Physical exam Narrative exam: Gen: WDWN, NAD, Awake, Alert, Orientated x 3 HEENT: NCAT, EOMI, PERRL, OP Clear Neck: supple, no adenopathy, no thyromegaly, no JVD CVS/Heart: RRR, normal S1S2, pulses present bilaterally Chest/Lungs: CTA B, crackles at low left base, Symmetrical chest expansion, good air entry bilaterally GI/Abdomen: soft, epigastric tenderness, good bowel sounds, no guarding or rebound /Bladder: no suprapubic tenderness, no CVA or paraspinal tenderness Extermity/Skin: no c/c/e, no obvious rash MSK: FROM x 4 Neuro: CN 2-12 grossly intact, no new focal deficits Psych: calm - Constitutional Vitals: Temp Pulse Resp BP Pulse Ox 99.3 F 91 H 20 123/79 93 02/09/18 11:48 02/09/18 11:48 02/09/18 11:48 02/09/18 11:48 02/09/18 11:48 General appearance: Present: well-nourished Results - Labs CBC & Chem 7: 02/07/18 03:59 02/09/18 04:30 Labs: Laboratory Last Values WBC 8.5 K/mm3 (4.5-11.0) 02/07/18 03:59 RBC 5.07 M/mm3 (3.65-5.03) H 02/07/18 03:59 Hgb 14.7 gm/dl (11.8-15.2) 02/07/18 03:59 Hct 44.2 % (35.5-45.6) 02/07/18 03:59 MCV 87 fl (84-94) 02/07/18 03:59 MCH 29 pg (28-32) 02/07/18 03:59 MCHC 33 % (32-34) 02/07/18 03:59 RDW 14.7 % (13.2-15.2) 02/07/18 03:59 Plt Count 120 K/mm3 (140-440) L 02/07/18 03:59 Lymph % (Auto) 8.8 % (13.4-35.0) L 02/03/18 04:43 [place] % (Auto) 6.5 % (0.0-7.3) 02/03/18 04:43 Eos % (Auto) 0.0 % (0.0-4.3) 02/03/18 04:43 Baso % (Auto) 0.6 % (0.0-1.8) 02/03/18 04:43 Lymph # 1.4 K/mm3 (1.2-5.4) 02/03/18 04:43 [place] # 1.0 K/mm3 (0.0-0.8) H 02/03/18 04:43 Eos # 0.0 K/mm3 (0.0-0.4) 02/03/18 04:43 Baso # 0.1 K/mm3 (0.0-0.1) 02/03/18 04:43 Add Manual Diff Complete 02/02/18 11:47 Total Counted 100 02/02/18 11:47 Seg Neutrophils % 84.1 % (40.0-70.0) H 02/03/18 04:43 Seg Neuts % (Manual) 80.0 % (40.0-70.0) H 02/02/18 11:47 Band Neutrophils % 10.0 % 02/02/18 11:47 Lymphocytes % (Manual) 6.0 % (13.4-35.0) L 02/02/18 11:47 Reactive Lymphs % (Man) 0 % 02/02/18 11:47 Monocytes % (Manual) 3.0 % (0.0-7.3) 02/02/18 11:47 Eosinophils % (Manual) 0 % (0.0-4.3) 02/02/18 11:47 Basophils % (Manual) 0 % (0.0-1.8) 02/02/18 11:47 Metamyelocytes % 1.0 % 02/02/18 11:47 Myelocytes % 0 % 02/02/18 11:47 Promyelocytes % 0 % 02/02/18 11:47 Blast Cells % 0 % 02/02/18 11:47 Nucleated RBC % Not Reportable 02/02/18 11:47 Seg Neutrophils # 13.2 K/mm3 (1.8-7.7) H 02/03/18 04:43 Seg Neutrophils # Man 16.2 K/mm3 (1.8-7.7) H 02/02/18 11:47 Band Neutrophils # 2.0 K/mm3 02/02/18 11:47 Lymphocytes # (Manual) 1.2 K/mm3 (1.2-5.4) 02/02/18 11:47 Abs React Lymphs (Man) 0.0 K/mm3 02/02/18 11:47 Monocytes # (Manual) 0.6 K/mm3 (0.0-0.8) 02/02/18 11:47 Eosinophils # (Manual) 0.0 K/mm3 (0.0-0.4) 02/02/18 11:47 Basophils # (Manual) 0.0 K/mm3 (0.0-0.1) 02/02/18 11:47 Metamyelocytes # 0.2 K/mm3 02/02/18 11:47 Myelocytes # 0.0 K/mm3 02/02/18 11:47 Promyelocytes # 0.0 K/mm3 02/02/18 11:47 Blast Cells # 0.0 K/mm3 02/02/18 11:47 WBC Morphology Not Reportable 02/02/18 11:47 Hypersegmented Neuts Not Reportable 02/02/18 11:47 Hyposegmented Neuts Not Reportable 02/02/18 11:47 Hypogranular Neuts Not Reportable 02/02/18 11:47 Smudge Cells Not Reportable 02/02/18 11:47 Toxic Granulation Not Reportable 02/02/18 11:47 Toxic Vacuolation Not Reportable 02/02/18 11:47 Dohle Bodies Not Reportable 02/02/18 11:47 Pelger-Huet Anomaly Not Reportable 02/02/18 11:47 Ariadna Rods Not Reportable 02/02/18 11:47 Platelet Estimate Appears normal 02/02/18 11:47 Clumped Platelets Not Reportable 02/02/18 11:47 Plt Clumps, EDTA Not Reportable 02/02/18 11:47 Large Platelets Not Reportable 02/02/18 11:47 Giant Platelets Not Reportable 02/02/18 11:47 Platelet Satelliting Not Reportable 02/02/18 11:47 Plt Morphology Comment Not Reportable 02/02/18 11:47 RBC Morphology Not Reportable 02/02/18 11:47 Dimorphic RBCs Not Reportable 02/02/18 11:47 Polychromasia Not Reportable 02/02/18 11:47 Hypochromasia Not Reportable 02/02/18 11:47 Poikilocytosis Not Reportable 02/02/18 11:47 Anisocytosis 1+ 02/02/18 11:47 Microcytosis Not Reportable 02/02/18 11:47 Macrocytosis Not Reportable 02/02/18 11:47 Spherocytes Not Reportable 02/02/18 11:47 Pappenheimer Bodies Not Reportable 02/02/18 11:47 Sickle Cells Not Reportable 02/02/18 11:47 Target Cells Not Reportable 02/02/18 11:47 Tear Drop Cells Not Reportable 02/02/18 11:47 Ovalocytes 1+ 02/02/18 11:47 Helmet Cells Not Reportable 02/02/18 11:47 Colon-Calhan Bodies Not Reportable 02/02/18 11:47 Worth Rings Not Reportable 02/02/18 11:47 [place] Cells 1+ 02/02/18 11:47 Bite Cells Not Reportable 02/02/18 11:47 Crenated Cell Not Reportable 02/02/18 11:47 Elliptocytes Not Reportable 02/02/18 11:47 Acanthocytes (Spur) Not Reportable 02/02/18 11:47 Rouleaux Not Reportable 02/02/18 11:47 Hemoglobin C Crystals Not Reportable 02/02/18 11:47 Schistocytes Not Reportable 02/02/18 11:47 Malaria parasites Not Reportable 02/02/18 11:47 Burak Bodies Not Reportable 02/02/18 11:47 Hem Pathologist Commnt No 02/02/18 11:47 Sodium 135 mmol/L (137-145) L 02/09/18 04:30 Potassium 3.7 mmol/L (3.6-5.0) 02/09/18 04:30 Chloride 97.2 mmol/L (98-107) L 02/09/18 04:30 Carbon Dioxide 22 mmol/L (22-30) 02/09/18 04:30 Anion Gap 20 mmol/L 02/09/18 04:30 BUN 10 mg/dL (9-20) 02/09/18 04:30 Creatinine 0.7 mg/dL (0.8-1.5) L 02/09/18 04:30 Estimated GFR > 60 ml/min 02/09/18 04:30 BUN/Creatinine Ratio 14 % 02/09/18 04:30 Glucose 197 mg/dL (75-100) H 02/09/18 04:30 POC Glucose 205 (70-105) H 02/09/18 11:48 Osmolality 280 Mosm/kg 02/08/18 10:07 Calcium 8.7 mg/dL (8.4-10.2) 02/09/18 04:30 Phosphorus 3.88 mg/dL (2.5-4.5) 02/02/18 14:17 Magnesium 1.70 mg/dL (1.7-2.3) 02/05/18 02:31 Total Bilirubin 0.60 mg/dL (0.1-1.2) 02/03/18 04:43 AST 23 units/L (5-40) 02/03/18 04:43 ALT 18 units/L (7-56) 02/03/18 04:43 Alkaline Phosphatase 43 units/L (35-129) 02/03/18 04:43 Total Protein 5.7 g/dL (6.3-8.2) L 02/03/18 04:43 Albumin 3.2 g/dL (3.9-5) L 02/03/18 04:43 Albumin/Globulin Ratio 1.3 % 02/03/18 04:43 Triglycerides 301.2 mg/dL (2-149) H 02/02/18 14:17 Cholesterol 27.6 mg/dL (50-199) L 02/02/18 14:17 LDL Cholesterol Direct 0 mg/dL (50-130) L 02/02/18 14:17 HDL Cholesterol 13.2 mg/dL (40-59) L 02/02/18 14:17 Cholesterol/HDL Ratio 2.00 % 02/02/18 14:17 Amylase 448.8 units/L (27-131) H 02/02/18 14:17 Lipase 141 units/L (13-60) H 02/03/18 04:43 Urine Color Agnes (Yellow) 02/07/18 07:06 Urine Turbidity Clear (Clear) 02/07/18 07:06 Urine pH 6.0 (5.0-7.0) 02/07/18 07:06 Ur Specific [place] 1.028 (1.003-1.030) 02/07/18 07:06 Urine Protein 30 mg/dl mg/dL (Negative) 02/07/18 07:06 Urine Glucose (UA) >=500 mg/dL (Negative) 02/07/18 07:06 Urine Ketones Tr mg/dL (Negative) 02/07/18 07:06 Urine Blood Neg (Negative) 02/07/18 07:06 Urine Nitrite Neg (Negative) 02/07/18 07:06 Urine Bilirubin Neg (Negative) 02/07/18 07:06 Urine Urobilinogen 4.0 mg/dL (<2.0) 02/07/18 07:06 Ur Leukocyte Esterase Neg (Negative) 02/07/18 07:06 Urine WBC (Auto) 1.0 /HPF (0.0-6.0) 02/07/18 07:06 Urine RBC (Auto) 3.0 /HPF (0.0-6.0) 02/07/18 07:06 Urine Mucus Few /HPF 02/07/18 07:06 Urine Osmolality 711 Mosm/kg 02/09/18 12:40 Urine Sodium 50 mmol/L 02/09/18 12:40 Urine Potassium 20.83 mmol/L 02/09/18 12:40 Urine Chloride 62.2 mmolL (110-250) L 02/09/18 12:40 Urine Opiates Screen Presumptive negative 02/02/18 17:12 Urine Methadone Screen Presumptive negative 02/02/18 17:12 Ur Barbiturates Screen Presumptive negative 02/02/18 17:12 Ur Phencyclidine Scrn Presumptive negative 02/02/18 17:12 Ur Amphetamines Screen Presumptive negative 02/02/18 17:12 U Benzodiazepines Scrn Presumptive negative 02/02/18 17:12 Urine Cocaine Screen Presumptive negative 02/02/18 17:12 U Marijuana (THC) Screen Presumptive negative 02/02/18 17:12 Drugs of Abuse Note Disclamer 02/02/18 17:12 Nutrition/Malnutrition Assess - Dietary Evaluation Nutrition/Malnutrition Findings: Nutrition Notes Start: 02/03/18 10:01 Freq: Status: Active Protocol: Document 02/03/18 10:01 TW (Rec: 02/03/18 10:11 TW [id number]) Co-Sign 02/03/18 10:01 NHALL Nutrition Notes Need for Assessment generated from: Education Initial or Follow up Assessment Current Diagnoses Diabetes Current Diet NPO Labs/Tests Reviewed. Medications Reviewed. Height 6 ft 2 in Weight 98.9 kg [place] Body Weight (lbs) 190.0 BMI 28.0 Weight Status Overweight Subjective/Other Information MD consult for DKA diet education. Pt stated he is eating well and is aware of high BG. Provided DKA education and handout. Burn Absent Trauma Absent #1 Nutrition Diagnoses Food and nutrition-related knowledge deficit Etiology limited exposure to DKA education As Evidenced by Signs and Symptoms elevated blood sugar Is patient on ventilator? No Is Patient Ambulatory and/or Out of Bed No REE-([facility]-confined to bed) 2430.096 Calculation Used for Recommendations Malaika Cortes Nutrition Intervention Teaching Recipient Patient Learning Readiness Good Teaching Methods Discussion Handout Response to Teaching Verbalize understanding Education Handouts Provided CHO Counting for people with DM. Barriers to Learning No Barriers RD phone number provided Yes Patient aware of follow up options Yes Goal #1 Blood Sugar control Goal #2 Adhere to CHO control diet Anticipated Discharge Needs: CHO controlled diet Revisit per MD consult or patient Sign Off request:
--- NOTE | 2018-02-09 14:46 | Progress Note ---
Assessment and Plan Imp: 1. Acute pancreatitis 2. DKA 3. SIRS 4. L pleural effusion, suspect due to #1 Rec: 1. Moderate L effusion on CT a/p; proceed with diagnostic/therapeutic tap, he agrees; pleural fluid studies ordered 2. F/u ID, renal recs, etc. 3. Will follow with you Plan of care reviewed w/ patient, he understands/agrees Subjective Date of service: 02/09/18 Principal diagnosis: pancreatitis, DKA Interval history: No events. Has had some SOB. On RA. Abd pain better. Tolerating PO. Active Medications Acetaminophen (Tylenol) 650 mg PO Q4H PRN PRN Reason: Pain MILD(1-3)/Fever >100.5/RODRIGUEZ Last Admin: 02/07/18 14:23 Dose: 650 mg Documented by: Dextrose (D50w (25gm) Syringe) 50 ml IV PRN PRN PRN Reason: Hypoglycemia Enoxaparin Sodium (Lovenox) 40 mg SUB-Q QDAY@1000 [facility] Last Admin: 02/09/18 10:52 Dose: 40 mg Documented by: Famotidine (Pepcid) 20 mg PO BID [facility] Last Admin: 02/09/18 10:52 Dose: 20 mg Documented by: Hydromorphone HCl (Dilaudid) 1 mg IV Q3H PRN PRN Reason: Pain, Moderate (4-6) Last Admin: 02/09/18 11:39 Dose: 1 mg Documented by: Insulin Human NPH (Humulin N) 15 unit SUB-Q BIDDIAB [facility] Last Admin: 02/09/18 09:21 Dose: 15 unit Documented by: Insulin Human Regular (Humulin R) 0 units SUB-Q ACHS [facility]; Protocol Last Admin: 02/09/18 12:39 Dose: 4 units Documented by: Ondansetron HCl (Zofran) 4 mg IV Q8H PRN PRN Reason: Nausea And Vomiting Sodium Chloride (Sodium Chloride Flush Syringe 10 Ml) 10 ml IV BID [facility] Last Admin: 02/09/18 10:52 Dose: 10 ml Documented by: Sodium Chloride (Sodium Chloride Flush Syringe 10 Ml) 10 ml IV PRN PRN PRN Reason: LINE FLUSH Objective Vital Signs - 12hr 02/09/18 02/09/18 04:50 11:48 Temperature 98.2 F 99.3 F Pulse Rate 82 91 H Respiratory 24 20 Rate Blood Pressure 119/76 123/79 O2 Sat by Pulse 97 93 Oximetry Constitutional: no acute distress Eyes: non-icteric ENT: oropharynx moist Neck: supple, no lymphadenopathy Effort: normal Ascultation: Left: diminished breath sounds (base), Bilateral: clear Percussion: Left: dull (base) Tactile fremitus: Left: diminished (base) Cardiovascular: regular rate and rhythm (no mrg) Gastrointestinal: normoactive bowel sounds, non-distended Integumentary: normal Extremities: no cyanosis, no cyanosis, no cyanosis Neurologic: normal mental status, non-focal exam Psychiatric: mood appropriate, affect normal CBC and BMP: 02/07/18 03:59 02/09/18 04:30 Abnormal lab findings: Abnormal Labs 02/02/18 02/02/18 02/02/18 11:47 14:17 16:58 WBC 20.3 H RBC 5.97 H Hgb Hct 51.5 H MCHC Plt Count Lymph % (Auto) [place] # Seg Neutrophils % Seg Neuts % (Manual) 80.0 H Lymphocytes % (Manual) 6.0 L Seg Neutrophils # Seg Neutrophils # Man 16.2 H Sodium Potassium Chloride 96 L Carbon Dioxide 12 L BUN Creatinine Glucose 390 H POC Glucose 322 H Calcium Magnesium 1.64 L AST ALT Total Protein Albumin Triglycerides 301.2 H Cholesterol 27.6 L LDL Cholesterol Direct 0 L HDL Cholesterol 13.2 L Amylase 448.8 H Lipase > 300 H Urine Chloride 02/02/18 02/02/18 02/02/18 19:31 20:19 20:34 WBC RBC Hgb Hct MCHC Plt Count Lymph % (Auto) [place] # Seg Neutrophils % Seg Neuts % (Manual) Lymphocytes % (Manual) Seg Neutrophils # Seg Neutrophils # Man Sodium 129 L D Potassium Chloride 97.2 L Carbon Dioxide 11 L BUN Creatinine 0.5 L Glucose 293 H POC Glucose 281 H 246 H Calcium 7.1 L D Magnesium AST < 5 L ALT < 5 L Total Protein 5.0 L D Albumin 3.2 L Triglycerides Cholesterol LDL Cholesterol Direct HDL Cholesterol Amylase Lipase Urine Chloride 02/02/18 02/02/18 02/02/18 21:11 21:32 22:37 WBC RBC Hgb Hct MCHC Plt Count Lymph % (Auto) [place] # Seg Neutrophils % Seg Neuts % (Manual) Lymphocytes % (Manual) Seg Neutrophils # Seg Neutrophils # Man Sodium 129 L Potassium Chloride 97.3 L Carbon Dioxide 12 L BUN Creatinine 0.5 L Glucose 277 H POC Glucose 246 H 262 H Calcium 2.4 L* D Magnesium AST ALT Total Protein Albumin Triglycerides Cholesterol LDL Cholesterol Direct HDL Cholesterol Amylase Lipase Urine Chloride 02/02/18 02/02/18 02/03/18 23:01 23:29 00:25 WBC RBC Hgb Hct MCHC Plt Count Lymph % (Auto) [place] # Seg Neutrophils % Seg Neuts % (Manual) Lymphocytes % (Manual) Seg Neutrophils # Seg Neutrophils # Man Sodium 130 L Potassium Chloride Carbon Dioxide 11 L BUN Creatinine 0.7 L Glucose 268 H POC Glucose 226 H 229 H Calcium 7.0 L D Magnesium AST ALT Total Protein Albumin Triglycerides Cholesterol LDL Cholesterol Direct HDL Cholesterol Amylase Lipase Urine Chloride 02/03/18 02/03/18 02/03/18 00:58 01:37 02:33 WBC RBC Hgb Hct MCHC Plt Count Lymph % (Auto) [place] # Seg Neutrophils % Seg Neuts % (Manual) Lymphocytes % (Manual) Seg Neutrophils # Seg Neutrophils # Man Sodium 132 L Potassium Chloride Carbon Dioxide 12 L BUN Creatinine 0.5 L Glucose 240 H POC Glucose 226 H 221 H Calcium 6.8 L Magnesium AST ALT Total Protein Albumin Triglycerides Cholesterol LDL Cholesterol Direct HDL Cholesterol Amylase Lipase Urine Chloride 02/03/18 02/03/18 02/03/18 04:08 04:43 04:43 WBC 15.7 H RBC 5.88 H Hgb 18.1 H Hct 50.9 H MCHC 36 H Plt Count Lymph % (Auto) 8.8 L [place] # 1.0 H Seg Neutrophils % 84.1 H Seg Neuts % (Manual) Lymphocytes % (Manual) Seg Neutrophils # 13.2 H Seg Neutrophils # Man Sodium 135 L Potassium Chloride Carbon Dioxide 11 L BUN 8 L Creatinine 0.7 L Glucose 271 H POC Glucose 209 H Calcium 7.0 L Magnesium AST ALT Total Protein 5.7 L Albumin 3.2 L Triglycerides Cholesterol LDL Cholesterol Direct HDL Cholesterol Amylase Lipase 141 H Urine Chloride 02/03/18 02/03/18 02/03/18 04:56 05:59 07:05 WBC RBC Hgb Hct MCHC Plt Count Lymph % (Auto) [place] # Seg Neutrophils % Seg Neuts % (Manual) Lymphocytes % (Manual) Seg Neutrophils # Seg Neutrophils # Man Sodium Potassium Chloride Carbon Dioxide BUN Creatinine Glucose POC Glucose 242 H 200 H 171 H Calcium Magnesium AST ALT Total Protein Albumin Triglycerides Cholesterol LDL Cholesterol Direct HDL Cholesterol Amylase Lipase Urine Chloride 02/03/18 02/03/18 02/03/18 08:09 09:02 10:11 WBC RBC Hgb Hct MCHC Plt Count Lymph % (Auto) [place] # Seg Neutrophils % Seg Neuts % (Manual) Lymphocytes % (Manual) Seg Neutrophils # Seg Neutrophils # Man Sodium Potassium Chloride Carbon Dioxide BUN Creatinine Glucose POC Glucose 209 H 226 H 204 H Calcium Magnesium AST ALT Total Protein Albumin Triglycerides Cholesterol LDL Cholesterol Direct HDL Cholesterol Amylase Lipase Urine Chloride 02/03/18 02/03/18 02/03/18 11:11 12:09 13:18 WBC RBC Hgb Hct MCHC Plt Count Lymph % (Auto) [place] # Seg Neutrophils % Seg Neuts % (Manual) Lymphocytes % (Manual) Seg Neutrophils # Seg Neutrophils # Man Sodium Potassium Chloride Carbon Dioxide BUN Creatinine Glucose POC Glucose 185 H 164 H 160 H Calcium Magnesium AST ALT Total Protein Albumin Triglycerides Cholesterol LDL Cholesterol Direct HDL Cholesterol Amylase Lipase Urine Chloride 02/03/18 02/03/18 02/03/18 14:31 15:32 16:58 WBC RBC Hgb Hct MCHC Plt Count Lymph % (Auto) [place] # Seg Neutrophils % Seg Neuts % (Manual) Lymphocytes % (Manual) Seg Neutrophils # Seg Neutrophils # Man Sodium Potassium Chloride Carbon Dioxide BUN Creatinine Glucose POC Glucose 190 H 170 H 145 H Calcium Magnesium AST ALT Total Protein Albumin Triglycerides Cholesterol LDL Cholesterol Direct HDL Cholesterol Amylase Lipase Urine Chloride 02/03/18 02/03/18 02/03/18 17:23 18:19 20:09 WBC RBC Hgb Hct MCHC Plt Count Lymph % (Auto) [place] # Seg Neutrophils % Seg Neuts % (Manual) Lymphocytes % (Manual) Seg Neutrophils # Seg Neutrophils # Man Sodium 135 L Potassium Chloride 107.5 H Carbon Dioxide 15 L BUN 7 L Creatinine 0.6 L Glucose 173 H POC Glucose 171 H 157 H Calcium 7.2 L Magnesium AST ALT Total Protein Albumin Triglycerides Cholesterol LDL Cholesterol Direct HDL Cholesterol Amylase Lipase Urine Chloride 02/03/18 02/03/18 02/03/18 20:52 22:12 23:15 WBC RBC Hgb Hct MCHC Plt Count Lymph % (Auto) [place] # Seg Neutrophils % Seg Neuts % (Manual) Lymphocytes % (Manual) Seg Neutrophils # Seg Neutrophils # Man Sodium Potassium Chloride Carbon Dioxide BUN Creatinine Glucose POC Glucose 144 H 156 H 153 H Calcium Magnesium AST ALT Total Protein Albumin Triglycerides Cholesterol LDL Cholesterol Direct HDL Cholesterol Amylase Lipase Urine Chloride 02/04/18 02/04/18 02/04/18 00:26 00:42 01:24 WBC RBC Hgb Hct MCHC Plt Count Lymph % (Auto) [place] # Seg Neutrophils % Seg Neuts % (Manual) Lymphocytes % (Manual) Seg Neutrophils # Seg Neutrophils # Man Sodium 133 L Potassium Chloride Carbon Dioxide 17 L BUN 8 L Creatinine 0.5 L Glucose 158 H POC Glucose 139 H 126 H Calcium 7.2 L Magnesium AST ALT Total Protein Albumin Triglycerides Cholesterol LDL Cholesterol Direct HDL Cholesterol Amylase Lipase Urine Chloride 02/04/18 02/04/18 02/04/18 02:16 03:33 04:54 WBC RBC Hgb Hct MCHC Plt Count Lymph % (Auto) [place] # Seg Neutrophils % Seg Neuts % (Manual) Lymphocytes % (Manual) Seg Neutrophils # Seg Neutrophils # Man Sodium 134 L Potassium Chloride Carbon Dioxide 18 L BUN 8 L Creatinine 0.6 L Glucose 119 H POC Glucose 159 H 113 H Calcium 7.6 L Magnesium AST ALT Total Protein Albumin Triglycerides Cholesterol LDL Cholesterol Direct HDL Cholesterol Amylase Lipase Urine Chloride 02/04/18 02/04/18 02/04/18 04:57 07:49 09:30 WBC RBC Hgb Hct MCHC Plt Count Lymph % (Auto) [place] # Seg Neutrophils % Seg Neuts % (Manual) Lymphocytes % (Manual) Seg Neutrophils # Seg Neutrophils # Man Sodium Potassium Chloride Carbon Dioxide BUN Creatinine Glucose POC Glucose 106 H 151 H 177 H Calcium Magnesium AST ALT Total Protein Albumin Triglycerides Cholesterol LDL Cholesterol Direct HDL Cholesterol Amylase Lipase Urine Chloride 02/04/18 02/04/18 02/04/18 10:54 12:39 13:10 WBC RBC Hgb Hct MCHC Plt Count Lymph % (Auto) [place] # Seg Neutrophils % Seg Neuts % (Manual) Lymphocytes % (Manual) Seg Neutrophils # Seg Neutrophils # Man Sodium 132 L Potassium Chloride Carbon Dioxide 18 L BUN 8 L Creatinine 0.6 L Glucose 171 H POC Glucose 185 H 155 H Calcium 8.0 L Magnesium AST ALT Total Protein Albumin Triglycerides Cholesterol LDL Cholesterol Direct HDL Cholesterol Amylase Lipase Urine Chloride 02/04/18 02/05/18 02/05/18 17:36 00:34 02:31 WBC RBC Hgb Hct MCHC Plt Count 84 L Lymph % (Auto) [place] # Seg Neutrophils % Seg Neuts % (Manual) Lymphocytes % (Manual) Seg Neutrophils # Seg Neutrophils # Man Sodium Potassium Chloride Carbon Dioxide BUN Creatinine Glucose POC Glucose 201 H 200 H Calcium Magnesium AST ALT Total Protein Albumin Triglycerides Cholesterol LDL Cholesterol Direct HDL Cholesterol Amylase Lipase Urine Chloride 02/05/18 02/05/18 02/05/18 02:31 06:18 11:28 WBC RBC Hgb Hct MCHC Plt Count Lymph % (Auto) [place] # Seg Neutrophils % Seg Neuts % (Manual) Lymphocytes % (Manual) Seg Neutrophils # Seg Neutrophils # Man Sodium 132 L Potassium Chloride Carbon Dioxide 21 L BUN 8 L Creatinine 0.6 L Glucose 203 H POC Glucose 196 H 257 H Calcium 8.1 L Magnesium AST ALT Total Protein Albumin Triglycerides Cholesterol LDL Cholesterol Direct HDL Cholesterol Amylase Lipase Urine Chloride 02/05/18 02/06/18 02/06/18 17:23 00:04 02:09 WBC RBC Hgb Hct MCHC Plt Count 101 L Lymph % (Auto) [place] # Seg Neutrophils % Seg Neuts % (Manual) Lymphocytes % (Manual) Seg Neutrophils # Seg Neutrophils # Man Sodium Potassium Chloride Carbon Dioxide BUN Creatinine Glucose POC Glucose 230 H 198 H Calcium Magnesium AST ALT Total Protein Albumin Triglycerides Cholesterol LDL Cholesterol Direct HDL Cholesterol Amylase Lipase Urine Chloride 02/06/18 02/06/18 02/06/18 02:09 05:11 12:05 WBC RBC Hgb Hct MCHC Plt Count Lymph % (Auto) [place] # Seg Neutrophils % Seg Neuts % (Manual) Lymphocytes % (Manual) Seg Neutrophils # Seg Neutrophils # Man Sodium 131 L Potassium 3.2 L Chloride 95.5 L Carbon Dioxide 21 L BUN Creatinine 0.6 L Glucose 229 H POC Glucose 234 H 195 H Calcium 8.2 L Magnesium AST ALT Total Protein Albumin Triglycerides Cholesterol LDL Cholesterol Direct HDL Cholesterol Amylase Lipase Urine Chloride 02/06/18 02/06/18 02/07/18 16:30 21:18 03:59 WBC RBC 5.07 H Hgb Hct MCHC Plt Count 120 L Lymph % (Auto) [place] # Seg Neutrophils % Seg Neuts % (Manual) Lymphocytes % (Manual) Seg Neutrophils # Seg Neutrophils # Man Sodium Potassium Chloride Carbon Dioxide BUN Creatinine Glucose POC Glucose 196 H 249 H Calcium Magnesium AST ALT Total Protein Albumin Triglycerides Cholesterol LDL Cholesterol Direct HDL Cholesterol Amylase Lipase Urine Chloride 02/07/18 02/07/18 02/07/18 03:59 06:37 11:36 WBC RBC Hgb Hct MCHC Plt Count Lymph % (Auto) [place] # Seg Neutrophils % Seg Neuts % (Manual) Lymphocytes % (Manual) Seg Neutrophils # Seg Neutrophils # Man Sodium 127 L Potassium 3.5 L Chloride 85.1 L Carbon Dioxide 20 L BUN Creatinine 0.5 L Glucose 211 H POC Glucose 211 H 230 H Calcium 8.1 L Magnesium AST ALT Total Protein Albumin Triglycerides Cholesterol LDL Cholesterol Direct HDL Cholesterol Amylase Lipase Urine Chloride 02/07/18 02/07/18 02/08/18 16:45 21:58 05:09 WBC RBC Hgb Hct MCHC Plt Count Lymph % (Auto) [place] # Seg Neutrophils % Seg Neuts % (Manual) Lymphocytes % (Manual) Seg Neutrophils # Seg Neutrophils # Man Sodium 133 L Potassium Chloride 95.1 L Carbon Dioxide 21 L BUN Creatinine 0.7 L Glucose 202 H POC Glucose 185 H 196 H Calcium Magnesium AST ALT Total Protein Albumin Triglycerides Cholesterol LDL Cholesterol Direct HDL Cholesterol Amylase Lipase Urine Chloride 02/08/18 02/08/18 02/08/18 08:11 11:28 16:39 WBC RBC Hgb Hct MCHC Plt Count Lymph % (Auto) [place] # Seg Neutrophils % Seg Neuts % (Manual) Lymphocytes % (Manual) Seg Neutrophils # Seg Neutrophils # Man Sodium Potassium Chloride Carbon Dioxide BUN Creatinine Glucose POC Glucose 188 H 233 H 203 H Calcium Magnesium AST ALT Total Protein Albumin Triglycerides Cholesterol LDL Cholesterol Direct HDL Cholesterol Amylase Lipase Urine Chloride 02/08/18 02/09/18 02/09/18 20:46 04:30 07:54 WBC RBC Hgb Hct MCHC Plt Count Lymph % (Auto) [place] # Seg Neutrophils % Seg Neuts % (Manual) Lymphocytes % (Manual) Seg Neutrophils # Seg Neutrophils # Man Sodium 135 L Potassium Chloride 97.2 L Carbon Dioxide BUN Creatinine 0.7 L Glucose 197 H POC Glucose 207 H 181 H Calcium Magnesium AST ALT Total Protein Albumin Triglycerides Cholesterol LDL Cholesterol Direct HDL Cholesterol Amylase Lipase Urine Chloride 02/09/18 02/09/18 11:48 12:40 WBC RBC Hgb Hct MCHC Plt Count Lymph % (Auto) [place] # Seg Neutrophils % Seg Neuts % (Manual) Lymphocytes % (Manual) Seg Neutrophils # Seg Neutrophils # Man Sodium Potassium Chloride Carbon Dioxide BUN Creatinine Glucose POC Glucose 205 H Calcium Magnesium AST ALT Total Protein Albumin Triglycerides Cholesterol LDL Cholesterol Direct HDL Cholesterol Amylase Lipase Urine Chloride 62.2 L Allied health notes reviewed: nursing
--- NOTE | 2018-02-09 16:04 | Gastroenterology Progress Note ---
Assessment and Plan GI: pt w/ idiopathic pancreatitis w/ signs improvement - pt now with intermittent fever and ct scan showing forming pseudocyst and possible phlegmon - ct w/o obvious signs necrosis or signs to suggest infected pseudocyst - ID input noted - follow labs - see no need for sampling of pancreatic fluid collection at this time - continue conservative pancreatiis management - pleural effusion tap per primary team/ID - CRP in am - will follow Subjective Date of service: 02/09/18 Principal diagnosis: pancreatitis, DKA Interval history: - pt reports doing well, denies GI related complaints. Tolerating po Objective - Constitutional Vitals: Temp Pulse Resp BP Pulse Ox 99.3 F 91 H 20 123/79 93 02/09/18 11:48 02/09/18 11:48 02/09/18 11:48 02/09/18 11:48 02/09/18 11:48 General appearance: no acute distress - EENT Eyes: PERRL - Respiratory Respiratory: bilateral: CTA - Cardiovascular Rhythm: regular Heart Sounds: Present: S1 & S2 - Gastrointestinal General gastrointestinal: Present: soft, non-tender, non-distended - Labs CBC & Chem 7: 02/07/18 03:59 02/09/18 04:30 Labs: Laboratory Results - last 24 hr 02/08/18 02/08/18 02/09/18 16:39 20:46 04:30 Sodium 135 L Potassium 3.7 Chloride 97.2 L Carbon Dioxide 22 Anion Gap 20 BUN 10 Creatinine 0.7 L Estimated GFR > 60 BUN/Creatinine Ratio 14 Glucose 197 H POC Glucose 203 H 207 H Calcium 8.7 Urine Osmolality Urine Sodium Urine Potassium Urine Chloride 02/09/18 02/09/18 02/09/18 07:54 11:48 12:40 Sodium Potassium Chloride Carbon Dioxide Anion Gap BUN Creatinine Estimated GFR BUN/Creatinine Ratio Glucose POC Glucose 181 H 205 H Calcium Urine Osmolality 711 Urine Sodium 50 Urine Potassium 20.83 Urine Chloride 62.2 L
[2018-02-10] MEDS: DILAUDID IV PRN ×3 (00:03→18:23)
[2018-02-10 05:14] LABS: Hematocrit 39.7 % (35.5-45.6); Hemoglobin 13.4 gm/dl (11.8-15.2); Mean Corpuscular HGB Conc 34 % (32-34); Mean Corpuscular Hemoglobin 29 pg (28-32); Mean Corpuscular Volume 86 fl (84-94); Platelet Count 191 K/mm3 (140-440); Red Blood Count 4.61 M/mm3 (3.65-5.03); Red Cell Distribution Width 14.2 % (13.2-15.2)
[2018-02-10 05:40] LABS: Alanine Aminotransferase 26 units/L (7-56); Albumin 3.1 g/dL (3.9-5); BUN/Creatinine Ratio 13; Blood Urea Nitrogen 12 mg/dL (9-20); Calcium 8.5 mg/dL (8.4-10.2); Hemolysis Index 3
[2018-02-10 07:02] LABS: INR 1.02 (0.87-1.13)
[2018-02-10 07:03] LABS: Partial Thromboplastin Time 27.2 Sec. (24.2-36.6)
--- NOTE | 2018-02-10 08:52 | Progress Note ---
Assessment and Plan Cultures: 02/03/2018 blood culture: No growth 02/06/2018 blood culture: No growth 02/09/2018 body fluid culture: pending A/P: 27-year-old male with no significant past medical history other than hyperlipidemia presented to the emergency room on 02/02/2018 with complaints of severe abdominal pain. He was found to have acute pancreatitis as well as new onset diabetes mellitus. Now with: 1) Fevers: Continuing , Likely related to the acute inflammatory state secondary to acute pancreatitis v/s left effusion and atelectasis. Overall clinically though patient is feeling better. Abdominal pain is improving with a gradually advanced diet. He does have evidence of left-sided pleural effusion probably related to his pancreatitis. May have some underlying atelectasis related to this. WBC count is normal. He is stable hemodynamically. For now, recommend watching off antibiotics and monitoring fever curve. CT of Abdomen and pelvis revealed pancreas measuring 1.5 centimeter, may represent developing pseudocyst. Cystic neoplasm is not entirely excluded. 2) Left-sided pleural effusion with likely underlying atelectasis: Thoracentesis today. Cultures pending. 3) acute pancreatitis: diet slowly being advanced. Recs: Continue Incentive spirometry Continue off antibiotics , monitor fever curve Can be discharged from ID standpoint Dr. Em will be taking call from home on Tuesday, and rounding in the hospital on Tuesday. [facility] M: [phone] O:[phone] Subjective Date of service: 02/10/18 Principal diagnosis: pancreatitis, DKA Interval history: Patient seen and examined. Reports that he can breath better, post thoracentesis. Denies generalized pain or weakness. Objective - Exam Narrative Exam: Physical Exam: Constitutional: Alert, cooperative. No acute distress Head, Ears, Nose: Normocephalic, atraumatic. External ears, nose normal Eyes: Conjunctivae/corneas clear. No icterus. No ptosis. Neck: Supple, no meningeal signs Oral: dentition fair, no thrush Cardiovascular: S1, S2 normal. Respiratory: air entry improved in left base, post thoracentesis GI: Soft, LUQ and epigastric tenderness; bowel sounds normal. No peritoneal signs Musculoskeletal: No pedal edema, no cyanosis. Skin: No rash or abscess Hem/Lymphatic: No palpable cervical or supraclavicular nodes. No lymphangitis Psych: Mood ok. Affect normal Neurological: Awake, alert, oriented. No gross abnormality - Constitutional Vitals: Vital Signs Temp Pulse Resp BP Pulse Ox 97.7 F 82 16 115/82 96 02/10/18 05:56 02/10/18 05:56 02/10/18 05:56 02/10/18 05:56 02/10/18 05:56 Temperature -Last 24 Hours Temperature 97.7 F Temperature 98.8 F Temperature 99.8 F Temperature 99.3 F - Labs CBC & Chem 7: 02/10/18 04:19 02/10/18 04:19 Labs: Abnormal lab results 02/09/18 02/09/18 02/09/18 Range/Units 11:48 12:40 21:28 Sodium (137-145) mmol/L Chloride (98-107) mmol/L Glucose (75-100) mg/dL POC Glucose 205 H 212 H (70-105) Lactate Dehydrogenase (91-180) units/L C-Reactive Protein (0.00-1.30) mg/dL Albumin (3.9-5) g/dL Urine Chloride 62.2 L (110-250) mmolL 02/10/18 Range/Units 04:19 Sodium 135 L (137-145) mmol/L Chloride 96.3 L (98-107) mmol/L Glucose 146 H (75-100) mg/dL POC Glucose (70-105) Lactate Dehydrogenase 257 H (91-180) units/L C-Reactive Protein 7.10 H (0.00-1.30) mg/dL Albumin 3.1 L (3.9-5) g/dL Urine Chloride (110-250) mmolL
[2018-02-10] MEDS ORDERED: XYLOCAINE 1% 20 mL ONE (09:00)
[2018-02-10] MEDS: HumuLIN R SUB-Q SCH ×3 (09:02→17:16)
--- NOTE | 2018-02-10 09:37 | Procedure Note ---
Date of procedure: 02/10/18 Pre-op diagnosis: left pleural effusion Post-op diagnosis: same Procedure: US thoracentesis, left Findings: small left pleural effusion Anesthesia: local Surgeon: SWATI STEPHENSON Estimated blood loss: none Pathology: list (120cc) Specimen disposition: to lab Condition: stable Disposition: floor
--- NOTE | 2018-02-10 10:04 | Gastroenterology Progress Note ---
Addendum entered and electronically signed by YASMINE BONNER MD 02/10/18 15:26: - pt doing better - tolerating po - diet as tolerated - other rec as outlined - will sign off, call if needed Original Note: Assessment and Plan 1.acute idiopathic pancreatitis -WBC-WNL (7.4) -CRP 7.10 -etiology unclear- possibly 2/2 elevated triglycerides (although not significantly elevated or range expected to cause AP; no stones on imaging and LFTs normal on admission) -currently afebrile- had intermittent fever a couple of days ago with repeat CT showing forming pseudocyst and possible phlegmon but no obvious signs of necros is or signs to suggest infected pseudocyst -ID input noted -clinically, patient reports feeling better with abd pain improved. No N/V. Tolerating diet. -no recommendations for sampling of pancreatic fluid collection at this time -follow labs -continue conservative pancreatitis management and supportive care -pleaural effusion tap per primary team/ID -no further GI recommendations at this time -patient okay to be d/c per GI standpoint with follow up in clinic in ~2 weeks for further workup (autoimmune etiologies)/management as outpatient -will sign off, please call if needed Subjective Date of service: 02/10/18 Principal diagnosis: pancreatitis, DKA Interval history: Patient resting in bed this morning w/o acute distress distress. Reports abd pain improved with no current pain. No N/V. Tolerating diet. Objective - Constitutional Vitals: Temp Pulse Resp BP Pulse Ox 97.7 F 82 16 115/82 96 02/10/18 05:56 02/10/18 05:56 02/10/18 05:56 02/10/18 05:56 02/10/18 05:56 General appearance: no acute distress - Respiratory Respiratory: bilateral: CTA - Cardiovascular Rhythm: regular Heart Sounds: Present: S1 & S2 - Gastrointestinal General gastrointestinal: Present: soft, non-tender, non-distended, normal bowel sounds - Neurologic Neurological: alert and oriented x3 - Labs CBC & Chem 7: 02/10/18 04:19 02/10/18 04:19 Labs: Laboratory Results - last 24 hr 02/09/18 02/09/18 02/09/18 11:48 12:40 16:52 WBC RBC Hgb Hct MCV MCH MCHC RDW Plt Count PT INR APTT Sodium Potassium Chloride Carbon Dioxide Anion Gap BUN Creatinine Estimated GFR BUN/Creatinine Ratio Glucose POC Glucose 205 H 95 Calcium Total Bilirubin AST ALT Alkaline Phosphatase Lactate Dehydrogenase C-Reactive Protein Total Protein Albumin Albumin/Globulin Ratio Urine Osmolality 711 Urine Sodium 50 Urine Potassium 20.83 Urine Chloride 62.2 L 02/09/18 02/10/18 02/10/18 21:28 04:19 04:19 WBC 7.4 RBC 4.61 Hgb 13.4 Hct 39.7 MCV 86 MCH 29 MCHC 34 RDW 14.2 Plt Count 191 PT INR APTT Sodium 135 L Potassium 3.6 Chloride 96.3 L Carbon Dioxide 26 Anion Gap 16 BUN 12 Creatinine 0.9 Estimated GFR > 60 BUN/Creatinine Ratio 13 Glucose 146 H POC Glucose 212 H Calcium 8.5 Total Bilirubin 0.50 AST 20 ALT 26 Alkaline Phosphatase 78 Lactate Dehydrogenase 257 H C-Reactive Protein 7.10 H Total Protein 6.5 Albumin 3.1 L Albumin/Globulin Ratio 0.9 Urine Osmolality Urine Sodium Urine Potassium Urine Chloride 02/10/18 06:31 WBC RBC Hgb Hct MCV MCH MCHC RDW Plt Count PT 13.8 INR 1.02 APTT 27.2 Sodium Potassium Chloride Carbon Dioxide Anion Gap BUN Creatinine Estimated GFR BUN/Creatinine Ratio Glucose POC Glucose Calcium Total Bilirubin AST ALT Alkaline Phosphatase Lactate Dehydrogenase C-Reactive Protein Total Protein Albumin Albumin/Globulin Ratio Urine Osmolality Urine Sodium Urine Potassium Urine Chloride
[2018-02-10] MEDS: LOVENOX SUB-Q SCH (10:28)
[2018-02-10] MEDS: PEPCID PO SCH ×2 (10:28→21:55)
[2018-02-10 10:58] LABS: Total Cells Counted 100 /mm3
--- NOTE | 2018-02-10 11:26 | Ultrasound Report ---
ULTRASOUND THORACENTESIS History: Left pleural effusion Description of procedure: Informed consent was obtained. Sterile technique was utilized. 1% lidocaine for skin anesthesia. Using ultrasound guidance, a 5 [place] centesis needle was advanced into the left pleural space. There was spontaneous return of cloudy yellow fluid. 400 cc of fluid was aspirated. 120 cc of fluid was sent to lab for analysis. No complications. Impression: Successful ultrasound-guided left thoracentesis.
--- NOTE | 2018-02-10 11:54 | Progress Note ---
Assessment and Plan - Patient Problems (1) Hyponatremia Current Visit: Yes Status: Acute Plan to address problem: Hyponatremia in the setting of hyperglycemia, hyperlipidemia, abdominal pain and discomfort from acute pancreatitis. Overall serum sodium levels are stable. Will continue to monitor. Serum sodium levels are stable. From a renal standpoint patient is stable for DC to follow up with his PCP. (2) Diabetes mellitus Current Visit: Yes Status: Acute Plan to address problem: Patient with initial presentation of DKA in the setting of new onset diabetes. Currently on insulin regimen. Management per primary team. (3) Acute pancreatitis Current Visit: Yes Status: Acute Plan to address problem: Overall pain management seems to be improving. He is slowly increasing his overall diet. Increased pain can stimulate ADH secretion, which can lead to low serum sodium levels. We will continue to monitor. He has been taken off all antibiotics at this time. CT abd/pelvis findings noted. (4) Pleural effusion on left Current Visit: Yes Status: Acute Plan to address problem: Patient is on incentive spirometer. Management per pulmonology team. s/p thoracentesis POD 0. Subjective Principal diagnosis: pancreatitis, DKA Interval history: No acute events overnight, Labs noted, overall renal function stable. s/p thoracentesis of left pleural effusion today am. Objective - Vital Signs Vital signs: Vital Signs - 12hr 02/10/18 02/10/18 00:08 05:56 Temperature 98.8 F 97.7 F Pulse Rate 92 H 82 Respiratory 18 16 Rate Blood Pressure 125/79 115/82 O2 Sat by Pulse 95 96 Oximetry - General Appearance General appearance: well-developed, well-nourished, appears stated age EENT: ATNC, PERRL Neck: no JVD, no thyromegaly Respiratory: Present: Decreased Breath Sounds (left lung base ) Cardiology: regular, S1S2 Gastrointestinal: normal, normoactive bowel sounds Integumentary: no rash, warm and dry Neurologic: no focal deficit, no asterixis Musculoskeletal: other (-edema ) Psychiatric: mood/affect appropriate, cooperative - Lab 02/10/18 04:19 02/10/18 04:19 Most recent lab results Calcium 8.5 mg/dL (8.4-10.2) 02/10/18 04:19 Phosphorus 3.88 mg/dL (2.5-4.5) 02/02/18 14:17 Magnesium 1.70 mg/dL (1.7-2.3) 02/05/18 02:31 Urine Sodium 50 mmol/L 02/09/18 12:40 - Allied health notes Allied health notes reviewed: nursing Medications & Allergies - Medications Allergies/Adverse Reactions: Allergies No Known Allergies Allergy (Unverified 02/02/18 09:56) Home Medications: Home Medications Medication Instructions Recorded Confirmed Last Taken Type No Known Home Medications [No 02/02/18 02/02/18 Unknown History Reported Home Medications] Active Medications: Generic Name Dose Route Start Last Admin Trade Name Freq PRN Reason Stop Dose Admin Acetaminophen 650 mg 02/02/18 16:50 02/07/18 14:23 Tylenol PO 650 mg Q4H PRN Administration Pain MILD(1-3)/Fever >100.5/RODRIGUEZ Dextrose 50 ml 02/04/18 12:08 D50w (25gm) Syringe IV PRN PRN Hypoglycemia Enoxaparin Sodium 40 mg 02/03/18 12:00 02/10/18 10:28 Lovenox SUB-Q 40 mg QDAY@1000 BRAYDEN Administration Famotidine 20 mg 02/06/18 10:00 02/10/18 10:28 Pepcid PO 20 mg BID BRAYDEN Administration Hydromorphone HCl 1 mg 02/02/18 16:50 02/10/18 00:03 Dilaudid IV 1 mg Q3H PRN Administration Pain, Moderate (4-6) Insulin Human NPH 15 unit 02/06/18 17:00 02/10/18 09:03 Humulin N SUB-Q Not Given [facility] Insulin Human Regular 0 units 02/09/18 11:30 02/10/18 09:02 Humulin R SUB-Q Not Given [facility] Protocol Ondansetron HCl 4 mg 02/02/18 16:50 Zofran IV Q8H PRN Nausea And Vomiting Sodium Chloride 10 ml 02/02/18 22:00 02/09/18 22:13 Sodium Chloride Flush Syringe 10 Ml IV 10 ml BID BRAYDEN Administration Sodium Chloride 10 ml 02/02/18 16:50 Sodium Chloride Flush Syringe 10 Ml IV PRN PRN LINE FLUSH
[2018-02-10] MEDS: SODIUM CHLORIDE FLUSH SYRINGE 10 ML IV SCH ×2 (12:39→21:56)
--- NOTE | 2018-02-10 12:50 | XRay Report ---
AP CHEST: HISTORY: Shortness of breath, recent thoracentesis Recent ultrasound-guided left thoracentesis was performed. There is near-complete evacuation of left pleural fluid. Partial atelectasis remains in the left lower lobe. Otherwise the lungs are clear. No pneumothorax is visualized. Heart and mediastinal structures are unremarkable. IMPRESSION: No evidence for pneumothorax.
--- NOTE | 2018-02-10 13:14 | Progress Note ---
Assessment and Plan Assessment and plan: Patient is a 27-year-old man with history of dyslipidemia who presented to [facility] with abdominal pains and constipation. He was found to have new onset DM with DKA and pancreatitis Acute severe idiopathic pancreatitis: advance diet to GI soft, pain control, CT abd/pelvis noted, re-consulted and seen by GI New onset DM with DKA: anion gap closed, off insulin drip, now on long acting, education done regarding OTC insulin if he has no insurance Leukocytosis and Sinus tachycardia, SIRS with organ dysfunction, poa: treat the underlying condition Fevers, ?pancreatits related vs underlying pna with pleural effusion vs other: get blood culture, abd xr, cxr, ua, started empiric abx IV zosyn==>cxr showed moderate to large pleural effusion, ID following Left Moderate Pleural Effusion most likely pancreatitis related vs PNA vs other, but defer to Pulmonology: gave lasix 40mg iv x 1 02/06/18 with good results but now electrolyte imbalances Hyponatremia at 127: consulted Nephrology Hypokalemia: replete and recheck in AM Thrombocytopenia: monitoring cbc daily DVT prophylaxis: on sq lovenox full code Disposition: continue inpatient care, await thoracentesis results, await afe brile for 24 hours, last fevers were yesterday at 5:41pm Thoracentesis done today, Pulmonology to follow up. History Interval history: Patient was seen and examined. Follow-up on current diagnosis abdominal pains, improved. Overnight uneventful. Patient denies any chest pain, shortness breath, nausea/vomiting or severe headaches. Imaging, nursing note, chart, labs and old chart reviewed. Discussed with patient. New issue is fevers, none since 5:41pm yesterday. Hospitalist Physical - Physical exam Narrative exam: Gen: WDWN, NAD, Awake, Alert, Orientated x 3 HEENT: NCAT, EOMI, PERRL, OP Clear Neck: supple, no adenopathy, no thyromegaly, no JVD CVS/Heart: RRR, normal S1S2, pulses present bilaterally Chest/Lungs: CTA B, crackles at low left base, Symmetrical chest expansion, good air entry bilaterally GI/Abdomen: soft, epigastric tenderness, good bowel sounds, no guarding or rebound /Bladder: no suprapubic tenderness, no CVA or paraspinal tenderness Extermity/Skin: no c/c/e, no obvious rash MSK: FROM x 4 Neuro: CN 2-12 grossly intact, no new focal deficits Psych: calm - Constitutional Vitals: Temp Pulse Resp BP Pulse Ox 97.7 F 82 16 115/82 96 02/10/18 05:56 02/10/18 05:56 02/10/18 05:56 02/10/18 05:56 02/10/18 05:56 General appearance: Present: well-nourished Results - Labs CBC & Chem 7: 02/10/18 04:19 02/10/18 04:19 Labs: Laboratory Last Values WBC 7.4 K/mm3 (4.5-11.0) 02/10/18 04:19 RBC 4.61 M/mm3 (3.65-5.03) 02/10/18 04:19 Hgb 13.4 gm/dl (11.8-15.2) 02/10/18 04:19 Hct 39.7 % (35.5-45.6) 02/10/18 04:19 MCV 86 fl (84-94) 02/10/18 04:19 MCH 29 pg (28-32) 02/10/18 04:19 MCHC 34 % (32-34) 02/10/18 04:19 RDW 14.2 % (13.2-15.2) 02/10/18 04:19 Plt Count 191 K/mm3 (140-440) 02/10/18 04:19 Lymph % (Auto) 8.8 % (13.4-35.0) L 02/03/18 04:43 Antelope % (Auto) 6.5 % (0.0-7.3) 02/03/18 04:43 Eos % (Auto) 0.0 % (0.0-4.3) 02/03/18 04:43 Baso % (Auto) 0.6 % (0.0-1.8) 02/03/18 04:43 Lymph # 1.4 K/mm3 (1.2-5.4) 02/03/18 04:43 Antelope # 1.0 K/mm3 (0.0-0.8) H 02/03/18 04:43 Eos # 0.0 K/mm3 (0.0-0.4) 02/03/18 04:43 Baso # 0.1 K/mm3 (0.0-0.1) 02/03/18 04:43 Add Manual Diff Complete 02/02/18 11:47 Total Counted 100 02/02/18 11:47 Seg Neutrophils % 84.1 % (40.0-70.0) H 02/03/18 04:43 Seg Neuts % (Manual) 80.0 % (40.0-70.0) H 02/02/18 11:47 Band Neutrophils % 10.0 % 02/02/18 11:47 Lymphocytes % (Manual) 6.0 % (13.4-35.0) L 02/02/18 11:47 Reactive Lymphs % (Man) 0 % 02/02/18 11:47 Monocytes % (Manual) 3.0 % (0.0-7.3) 02/02/18 11:47 Eosinophils % (Manual) 0 % (0.0-4.3) 02/02/18 11:47 Basophils % (Manual) 0 % (0.0-1.8) 02/02/18 11:47 Metamyelocytes % 1.0 % 02/02/18 11:47 Myelocytes % 0 % 02/02/18 11:47 Promyelocytes % 0 % 02/02/18 11:47 Blast Cells % 0 % 02/02/18 11:47 Nucleated RBC % Not Reportable 02/02/18 11:47 Seg Neutrophils # 13.2 K/mm3 (1.8-7.7) H 02/03/18 04:43 Seg Neutrophils # Man 16.2 K/mm3 (1.8-7.7) H 02/02/18 11:47 Band Neutrophils # 2.0 K/mm3 02/02/18 11:47 Lymphocytes # (Manual) 1.2 K/mm3 (1.2-5.4) 02/02/18 11:47 Abs React Lymphs (Man) 0.0 K/mm3 02/02/18 11:47 Monocytes # (Manual) 0.6 K/mm3 (0.0-0.8) 02/02/18 11:47 Eosinophils # (Manual) 0.0 K/mm3 (0.0-0.4) 02/02/18 11:47 Basophils # (Manual) 0.0 K/mm3 (0.0-0.1) 02/02/18 11:47 Metamyelocytes # 0.2 K/mm3 02/02/18 11:47 Myelocytes # 0.0 K/mm3 02/02/18 11:47 Promyelocytes # 0.0 K/mm3 02/02/18 11:47 Blast Cells # 0.0 K/mm3 02/02/18 11:47 WBC Morphology Not Reportable 02/02/18 11:47 Hypersegmented Neuts Not Reportable 02/02/18 11:47 Hyposegmented Neuts Not Reportable 02/02/18 11:47 Hypogranular Neuts Not Reportable 02/02/18 11:47 Smudge Cells Not Reportable 02/02/18 11:47 Toxic Granulation Not Reportable 02/02/18 11:47 Toxic Vacuolation Not Reportable 02/02/18 11:47 Dohle Bodies Not Reportable 02/02/18 11:47 Pelger-Huet Anomaly Not Reportable 02/02/18 11:47 Ariadna Rods Not Reportable 02/02/18 11:47 Platelet Estimate Appears normal 02/02/18 11:47 Clumped Platelets Not Reportable 02/02/18 11:47 Plt Clumps, EDTA Not Reportable 02/02/18 11:47 Large Platelets Not Reportable 02/02/18 11:47 Giant Platelets Not Reportable 02/02/18 11:47 Platelet Satelliting Not Reportable 02/02/18 11:47 Plt Morphology Comment Not Reportable 02/02/18 11:47 RBC Morphology Not Reportable 02/02/18 11:47 Dimorphic RBCs Not Reportable 02/02/18 11:47 Polychromasia Not Reportable 02/02/18 11:47 Hypochromasia Not Reportable 02/02/18 11:47 Poikilocytosis Not Reportable 02/02/18 11:47 Anisocytosis 1+ 02/02/18 11:47 Microcytosis Not Reportable 02/02/18 11:47 Macrocytosis Not Reportable 02/02/18 11:47 Spherocytes Not Reportable 02/02/18 11:47 Pappenheimer Bodies Not Reportable 02/02/18 11:47 Sickle Cells Not Reportable 02/02/18 11:47 Target Cells Not Reportable 02/02/18 11:47 Tear Drop Cells Not Reportable 02/02/18 11:47 Ovalocytes 1+ 02/02/18 11:47 Helmet Cells Not Reportable 02/02/18 11:47 Colon-[place] Bodies Not Reportable 02/02/18 11:47 [place] Rings Not Reportable 02/02/18 11:47 Lisa Cells 1+ 02/02/18 11:47 Bite Cells Not Reportable 02/02/18 11:47 Crenated Cell Not Reportable 02/02/18 11:47 Elliptocytes Not Reportable 02/02/18 11:47 Acanthocytes (Spur) Not Reportable 02/02/18 11:47 Rouleaux Not Reportable 02/02/18 11:47 Hemoglobin C Crystals Not Reportable 02/02/18 11:47 Schistocytes Not Reportable 02/02/18 11:47 Malaria parasites Not Reportable 02/02/18 11:47 Burak Bodies Not Reportable 02/02/18 11:47 Hem Pathologist Commnt No 02/02/18 11:47 PT 13.8 Sec. (12.2-14.9) 02/10/18 06:31 INR 1.02 (0.87-1.13) 02/10/18 06:31 APTT 27.2 Sec. (24.2-36.6) 02/10/18 06:31 Sodium 135 mmol/L (137-145) L 02/10/18 04:19 Potassium 3.6 mmol/L (3.6-5.0) 02/10/18 04:19 Chloride 96.3 mmol/L (98-107) L 02/10/18 04:19 Carbon Dioxide 26 mmol/L (22-30) 02/10/18 04:19 Anion Gap 16 mmol/L 02/10/18 04:19 BUN 12 mg/dL (9-20) 02/10/18 04:19 Creatinine 0.9 mg/dL (0.8-1.5) 02/10/18 04:19 Estimated GFR > 60 ml/min 02/10/18 04:19 BUN/Creatinine Ratio 13 % 02/10/18 04:19 Glucose 146 mg/dL (75-100) H 02/10/18 04:19 POC Glucose 245 (70-105) H 02/10/18 11:14 Osmolality 280 Mosm/kg 02/08/18 10:07 Calcium 8.5 mg/dL (8.4-10.2) 02/10/18 04:19 Phosphorus 3.88 mg/dL (2.5-4.5) 02/02/18 14:17 Magnesium 1.70 mg/dL (1.7-2.3) 02/05/18 02:31 Total Bilirubin 0.50 mg/dL (0.1-1.2) 02/10/18 04:19 AST 20 units/L (5-40) 02/10/18 04:19 ALT 26 units/L (7-56) 02/10/18 04:19 Alkaline Phosphatase 78 units/L (35-129) 02/10/18 04:19 Lactate Dehydrogenase 257 units/L (91-180) H 02/10/18 04:19 C-Reactive Protein 7.10 mg/dL (0.00-1.30) H 02/10/18 04:19 Total Protein 6.5 g/dL (6.3-8.2) 02/10/18 04:19 Albumin 3.1 g/dL (3.9-5) L 02/10/18 04:19 Albumin/Globulin Ratio 0.9 % 02/10/18 04:19 Triglycerides 301.2 mg/dL (2-149) H 02/02/18 14:17 Cholesterol 27.6 mg/dL (50-199) L 02/02/18 14:17 LDL Cholesterol Direct 0 mg/dL (50-130) L 02/02/18 14:17 HDL Cholesterol 13.2 mg/dL (40-59) L 02/02/18 14:17 Cholesterol/HDL Ratio 2.00 % 02/02/18 14:17 Amylase 448.8 units/L (27-131) H 02/02/18 14:17 Lipase 141 units/L (13-60) H 02/03/18 04:43 Urine Color Agnes (Yellow) 02/07/18 07:06 Urine Turbidity Clear (Clear) 02/07/18 07:06 Urine pH 6.0 (5.0-7.0) 02/07/18 07:06 Ur Specific [place] 1.028 (1.003-1.030) 02/07/18 07:06 Urine Protein 30 mg/dl mg/dL (Negative) 02/07/18 07:06 Urine Glucose (UA) >=500 mg/dL (Negative) 02/07/18 07:06 Urine Ketones Tr mg/dL (Negative) 02/07/18 07:06 Urine Blood Neg (Negative) 02/07/18 07:06 Urine Nitrite Neg (Negative) 02/07/18 07:06 Urine Bilirubin Neg (Negative) 02/07/18 07:06 Urine Urobilinogen 4.0 mg/dL (<2.0) 02/07/18 07:06 Ur Leukocyte Esterase Neg (Negative) 02/07/18 07:06 Urine WBC (Auto) 1.0 /HPF (0.0-6.0) 02/07/18 07:06 Urine RBC (Auto) 3.0 /HPF (0.0-6.0) 02/07/18 07:06 Urine Mucus Few /HPF 02/07/18 07:06 Urine Osmolality 711 Mosm/kg 02/09/18 12:40 Urine Sodium 50 mmol/L 02/09/18 12:40 Urine Potassium 20.83 mmol/L 02/09/18 12:40 Urine Chloride 62.2 mmolL (110-250) L 02/09/18 12:40 Fluid Type Pleural 02/09/18 Unknown Fluid Color Yellow 02/09/18 Unknown Fluid Appearance Cloudy 02/09/18 Unknown Fluid WBC 2650 /mm3 02/09/18 Unknown Fluid RBC 600 /mm3 02/09/18 Unknown Fluid Seg Neutrophils 37.0 % 02/09/18 Unknown Fluid Lymphocytes 10.0 % 02/09/18 Unknown Fluid Reactive Lymphs 0 % 02/09/18 Unknown Fluid Monocytes 53.0 % 02/09/18 Unknown Fluid Eosinophils 0 % 02/09/18 Unknown Fluid Basophils 0 % 02/09/18 Unknown Urine Opiates Screen Presumptive negative 02/02/18 17:12 Urine Methadone Screen Presumptive negative 02/02/18 17:12 Ur Barbiturates Screen Presumptive negative 02/02/18 17:12 Ur Phencyclidine Scrn Presumptive negative 02/02/18 17:12 Ur Amphetamines Screen Presumptive negative 02/02/18 17:12 U Benzodiazepines Scrn Presumptive negative 02/02/18 17:12 Urine Cocaine Screen Presumptive negative 02/02/18 17:12 U Marijuana (THC) Screen Presumptive negative 02/02/18 17:12 Drugs of Abuse Note Disclamer 02/02/18 17:12 Nutrition/Malnutrition Assess - Dietary Evaluation Nutrition/Malnutrition Findings: Nutrition Notes Start: 02/03/18 10:01 Freq: Status: Active Protocol: Document 02/03/18 10:01 TW (Rec: 02/03/18 10:11 TW [id number]) Co-Sign 02/03/18 10:01 NHALL Nutrition Notes Need for Assessment generated from: Education Initial or Follow up Assessment Current Diagnoses Diabetes Current Diet NPO Labs/Tests Reviewed. Medications Reviewed. Height 6 ft 2 in Weight 98.9 kg [place] Body Weight (lbs) 190.0 BMI 28.0 Weight Status Overweight Subjective/Other Information MD consult for DKA diet education. Pt stated he is eating well and is aware of high BG. Provided DKA education and handout. Burn Absent Trauma Absent #1 Nutrition Diagnoses Food and nutrition-related knowledge deficit Etiology limited exposure to DKA education As Evidenced by Signs and Symptoms elevated blood sugar Is patient on ventilator? No Is Patient Ambulatory and/or Out of Bed No [facility] [phone] Calculation Used for Recommendations [facility] Nutrition Intervention Teaching Recipient Patient Learning Readiness Good Teaching Methods Discussion Handout Response to Teaching Verbalize understanding Education Handouts Provided CHO Counting for people with DM. Barriers to Learning No Barriers RD phone number provided Yes Patient aware of follow up options Yes Goal #1 Blood Sugar control Goal #2 Adhere to CHO control diet Anticipated Discharge Needs: CHO controlled diet Revisit per MD consult or patient Sign Off request:
--- NOTE | 2018-02-10 15:15 | Progress Note ---
Assessment and Plan Imp: 1. Acute pancreatitis 2. DKA 3. SIRS 4. L pleural effusion, suspect due to #1 Rec: 1. F/u PFA although many of the tests will not be back for several days and could be reviewed in the office 2. F/u ID, renal recs, etc. 3. Can go home pulm-[facility] and f/u with us in 1-2 weeks to review PFA and possibly repeat CXR Plan of care reviewed w/ patient, he understands/agrees Subjective Date of service: 02/10/18 Principal diagnosis: pancreatitis, DKA Interval history: Had Brad phillip, see report. No SOB. On RA. Abd pain better. Tolerating PO. Active Medications Acetaminophen (Tylenol) 650 mg PO Q4H PRN PRN Reason: Pain MILD(1-3)/Fever >100.5/R[facility]RIGUEZ Last Admin: 02/07/18 14:23 Dose: 650 mg Documented by: Dextrose (D50w (25gm) Syringe) 50 ml IV PRN PRN PRN Reason: Hypoglycemia Enoxaparin Sodium (Lovenox) 40 mg SUB-Q QDAY@1000 [facility] Last Admin: 02/10/18 10:28 Dose: 40 mg Documented by: Famotidine (Pepcid) 20 mg PO BID [facility] Last Admin: 02/10/18 10:28 Dose: 20 mg Documented by: Hydromorphone HCl (Dilaudid) 1 mg IV Q3H PRN PRN Reason: Pain, Moderate (4-6) Last Admin: 02/10/18 12:44 Dose: 1 mg Documented by: Insulin Human NPH (Humulin N) 15 unit SUB-Q BIDDIAB [facility] Last Admin: 02/10/18 09:03 Dose: Not Given Documented by: Insulin Human Regular (Humulin R) 0 units SUB-Q [facility]; Protocol Last Admin: 02/10/18 12:38 Dose: 4 units Documented by: Ondansetron HCl (Zofran) 4 mg IV Q8H PRN PRN Reason: Nausea And Vomiting Sodium Chloride (Sodium Chloride Flush Syringe 10 Ml) 10 ml IV BID [facility] Last Admin: 02/10/18 12:39 Dose: 10 ml Documented by: Sodium Chloride (Sodium Chloride Flush Syringe 10 Ml) 10 ml IV PRN PRN PRN Reason: LINE FLUSH Objective Vital Signs - 12hr 02/10/18 05:56 Temperature 97.7 F Pulse Rate 82 Respiratory 16 Rate Blood Pressure 115/82 O2 Sat by Pulse 96 Oximetry Constitutional: no acute distress Eyes: non-icteric ENT: oropharynx moist Neck: supple, no lymphadenopathy Effort: normal Ascultation: Left: diminished breath sounds (base, better) Percussion: Left: dull (base) Tactile fremitus: Left: diminished (base) Cardiovascular: regular rate and rhythm (no mrg) Gastrointestinal: normoactive bowel sounds, non-distended Integumentary: normal Extremities: no cyanosis, no cyanosis, no cyanosis Neurologic: normal mental status, non-focal exam Psychiatric: mood appropriate, affect normal CBC and BMP: 02/10/18 04:19 02/10/18 04:19 ABG, PT/INR, D-dimer: PT/INR, D-dimer PT 13.8 Sec. (12.2-14.9) 02/10/18 06:31 INR 1.02 (0.87-1.13) 02/10/18 06:31 Abnormal lab findings: Abnormal Labs 02/02/18 02/02/18 02/02/18 11:47 14:17 16:58 WBC 20.3 H RBC 5.97 H Hgb Hct 51.5 H MCHC Plt Count Lymph % (Auto) [place] # Seg Neutrophils % Seg Neuts % (Manual) 80.0 H Lymphocytes % (Manual) 6.0 L Seg Neutrophils # Seg Neutrophils # Man 16.2 H Sodium Potassium Chloride 96 L Carbon Dioxide 12 L BUN Creatinine Glucose 390 H POC Glucose 322 H Calcium Magnesium 1.64 L AST ALT Lactate Dehydrogenase C-Reactive Protein Total Protein Albumin Triglycerides 301.2 H Cholesterol 27.6 L LDL Cholesterol Direct 0 L HDL Cholesterol 13.2 L Amylase 448.8 H Lipase > 300 H Urine Chloride 02/02/18 02/02/18 02/02/18 19:31 20:19 20:34 WBC RBC Hgb Hct MCHC Plt Count Lymph % (Auto) [place] # Seg Neutrophils % Seg Neuts % (Manual) Lymphocytes % (Manual) Seg Neutrophils # Seg Neutrophils # Man Sodium 129 L D Potassium Chloride 97.2 L Carbon Dioxide 11 L BUN Creatinine 0.5 L Glucose 293 H POC Glucose 281 H 246 H Calcium 7.1 L D Magnesium AST < 5 L ALT < 5 L Lactate Dehydrogenase C-Reactive Protein Total Protein 5.0 L D Albumin 3.2 L Triglycerides Cholesterol LDL Cholesterol Direct HDL Cholesterol Amylase Lipase Urine Chloride 02/02/18 02/02/18 02/02/18 21:11 21:32 22:37 WBC RBC Hgb Hct MCHC Plt Count Lymph % (Auto) [place] # Seg Neutrophils % Seg Neuts % (Manual) Lymphocytes % (Manual) Seg Neutrophils # Seg Neutrophils # Man Sodium 129 L Potassium Chloride 97.3 L Carbon Dioxide 12 L BUN Creatinine 0.5 L Glucose 277 H POC Glucose 246 H 262 H Calcium 2.4 L* D Magnesium AST ALT Lactate Dehydrogenase C-Reactive Protein Total Protein Albumin Triglycerides Cholesterol LDL Cholesterol Direct HDL Cholesterol Amylase Lipase Urine Chloride 02/02/18 02/02/18 02/03/18 23:01 23:29 00:25 WBC RBC Hgb Hct MCHC Plt Count Lymph % (Auto) [place] # Seg Neutrophils % Seg Neuts % (Manual) Lymphocytes % (Manual) Seg Neutrophils # Seg Neutrophils # Man Sodium 130 L Potassium Chloride Carbon Dioxide 11 L BUN Creatinine 0.7 L Glucose 268 H POC Glucose 226 H 229 H Calcium 7.0 L D Magnesium AST ALT Lactate Dehydrogenase C-Reactive Protein Total Protein Albumin Triglycerides Cholesterol LDL Cholesterol Direct HDL Cholesterol Amylase Lipase Urine Chloride 02/03/18 02/03/18 02/03/18 00:58 01:37 02:33 WBC RBC Hgb Hct MCHC Plt Count Lymph % (Auto) [place] # Seg Neutrophils % Seg Neuts % (Manual) Lymphocytes % (Manual) Seg Neutrophils # Seg Neutrophils # Man Sodium 132 L Potassium Chloride Carbon Dioxide 12 L BUN Creatinine 0.5 L Glucose 240 H POC Glucose 226 H 221 H Calcium 6.8 L Magnesium AST ALT Lactate Dehydrogenase C-Reactive Protein Total Protein Albumin Triglycerides Cholesterol LDL Cholesterol Direct HDL Cholesterol Amylase Lipase Urine Chloride 02/03/18 02/03/18 02/03/18 04:08 04:43 04:43 WBC 15.7 H RBC 5.88 H Hgb 18.1 H Hct 50.9 H MCHC 36 H Plt Count Lymph % (Auto) 8.8 L [place] # 1.0 H Seg Neutrophils % 84.1 H Seg Neuts % (Manual) Lymphocytes % (Manual) Seg Neutrophils # 13.2 H Seg Neutrophils # Man Sodium 135 L Potassium Chloride Carbon Dioxide 11 L BUN 8 L Creatinine 0.7 L Glucose 271 H POC Glucose 209 H Calcium 7.0 L Magnesium AST ALT Lactate Dehydrogenase C-Reactive Protein Total Protein 5.7 L Albumin 3.2 L Triglycerides Cholesterol LDL Cholesterol Direct HDL Cholesterol Amylase Lipase 141 H Urine Chloride 02/03/18 02/03/18 02/03/18 04:56 05:59 07:05 WBC RBC Hgb Hct MCHC Plt Count Lymph % (Auto) [place] # Seg Neutrophils % Seg Neuts % (Manual) Lymphocytes % (Manual) Seg Neutrophils # Seg Neutrophils # Man Sodium Potassium Chloride Carbon Dioxide BUN Creatinine Glucose POC Glucose 242 H 200 H 171 H Calcium Magnesium AST ALT Lactate Dehydrogenase C-Reactive Protein Total Protein Albumin Triglycerides Cholesterol LDL Cholesterol Direct HDL Cholesterol Amylase Lipase Urine Chloride 02/03/18 02/03/18 02/03/18 08:09 09:02 10:11 WBC RBC Hgb Hct MCHC Plt Count Lymph % (Auto) [place] # Seg Neutrophils % Seg Neuts % (Manual) Lymphocytes % (Manual) Seg Neutrophils # Seg Neutrophils # Man Sodium Potassium Chloride Carbon Dioxide BUN Creatinine Glucose POC Glucose 209 H 226 H 204 H Calcium Magnesium AST ALT Lactate Dehydrogenase C-Reactive Protein Total Protein Albumin Triglycerides Cholesterol LDL Cholesterol Direct HDL Cholesterol Amylase Lipase Urine Chloride 02/03/18 02/03/18 02/03/18 11:11 12:09 13:18 WBC RBC Hgb Hct MCHC Plt Count Lymph % (Auto) [place] # Seg Neutrophils % Seg Neuts % (Manual) Lymphocytes % (Manual) Seg Neutrophils # Seg Neutrophils # Man Sodium Potassium Chloride Carbon Dioxide BUN Creatinine Glucose POC Glucose 185 H 164 H 160 H Calcium Magnesium AST ALT Lactate Dehydrogenase C-Reactive Protein Total Protein Albumin Triglycerides Cholesterol LDL Cholesterol Direct HDL Cholesterol Amylase Lipase Urine Chloride 02/03/18 02/03/18 02/03/18 14:31 15:32 16:58 WBC RBC Hgb Hct MCHC Plt Count Lymph % (Auto) [place] # Seg Neutrophils % Seg Neuts % (Manual) Lymphocytes % (Manual) Seg Neutrophils # Seg Neutrophils # Man Sodium Potassium Chloride Carbon Dioxide BUN Creatinine Glucose POC Glucose 190 H 170 H 145 H Calcium Magnesium AST ALT Lactate Dehydrogenase C-Reactive Protein Total Protein Albumin Triglycerides Cholesterol LDL Cholesterol Direct HDL Cholesterol Amylase Lipase Urine Chloride 02/03/18 02/03/18 02/03/18 17:23 18:19 20:09 WBC RBC Hgb Hct MCHC Plt Count Lymph % (Auto) [place] # Seg Neutrophils % Seg Neuts % (Manual) Lymphocytes % (Manual) Seg Neutrophils # Seg Neutrophils # Man Sodium 135 L Potassium Chloride 107.5 H Carbon Dioxide 15 L BUN 7 L Creatinine 0.6 L Glucose 173 H POC Glucose 171 H 157 H Calcium 7.2 L Magnesium AST ALT Lactate Dehydrogenase C-Reactive Protein Total Protein Albumin Triglycerides Cholesterol LDL Cholesterol Direct HDL Cholesterol Amylase Lipase Urine Chloride 02/03/18 02/03/18 02/03/18 20:52 22:12 23:15 WBC RBC Hgb Hct MCHC Plt Count Lymph % (Auto) [place] # Seg Neutrophils % Seg Neuts % (Manual) Lymphocytes % (Manual) Seg Neutrophils # Seg Neutrophils # Man Sodium Potassium Chloride Carbon Dioxide BUN Creatinine Glucose POC Glucose 144 H 156 H 153 H Calcium Magnesium AST ALT Lactate Dehydrogenase C-Reactive Protein Total Protein Albumin Triglycerides Cholesterol LDL Cholesterol Direct HDL Cholesterol Amylase Lipase Urine Chloride 02/04/18 02/04/18 02/04/18 00:26 00:42 01:24 WBC RBC Hgb Hct MCHC Plt Count Lymph % (Auto) [place] # Seg Neutrophils % Seg Neuts % (Manual) Lymphocytes % (Manual) Seg Neutrophils # Seg Neutrophils # Man Sodium 133 L Potassium Chloride Carbon Dioxide 17 L BUN 8 L Creatinine 0.5 L Glucose 158 H POC Glucose 139 H 126 H Calcium 7.2 L Magnesium AST ALT Lactate Dehydrogenase C-Reactive Protein Total Protein Albumin Triglycerides Cholesterol LDL Cholesterol Direct HDL Cholesterol Amylase Lipase Urine Chloride 02/04/18 02/04/18 02/04/18 02:16 03:33 04:54 WBC RBC Hgb Hct MCHC Plt Count Lymph % (Auto) [place] # Seg Neutrophils % Seg Neuts % (Manual) Lymphocytes % (Manual) Seg Neutrophils # Seg Neutrophils # Man Sodium 134 L Potassium Chloride Carbon Dioxide 18 L BUN 8 L Creatinine 0.6 L Glucose 119 H POC Glucose 159 H 113 H Calcium 7.6 L Magnesium AST ALT Lactate Dehydrogenase C-Reactive Protein Total Protein Albumin Triglycerides Cholesterol LDL Cholesterol Direct HDL Cholesterol Amylase Lipase Urine Chloride 02/04/18 02/04/18 02/04/18 04:57 07:49 09:30 WBC RBC Hgb Hct MCHC Plt Count Lymph % (Auto) [place] # Seg Neutrophils % Seg Neuts % (Manual) Lymphocytes % (Manual) Seg Neutrophils # Seg Neutrophils # Man Sodium Potassium Chloride Carbon Dioxide BUN Creatinine Glucose POC Glucose 106 H 151 H 177 H Calcium Magnesium AST ALT Lactate Dehydrogenase C-Reactive Protein Total Protein Albumin Triglycerides Cholesterol LDL Cholesterol Direct HDL Cholesterol Amylase Lipase Urine Chloride 02/04/18 02/04/18 02/04/18 10:54 12:39 13:10 WBC RBC Hgb Hct MCHC Plt Count Lymph % (Auto) [place] # Seg Neutrophils % Seg Neuts % (Manual) Lymphocytes % (Manual) Seg Neutrophils # Seg Neutrophils # Man Sodium 132 L Potassium Chloride Carbon Dioxide 18 L BUN 8 L Creatinine 0.6 L Glucose 171 H POC Glucose 185 H 155 H Calcium 8.0 L Magnesium AST ALT Lactate Dehydrogenase C-Reactive Protein Total Protein Albumin Triglycerides Cholesterol LDL Cholesterol Direct HDL Cholesterol Amylase Lipase Urine Chloride 02/04/18 02/05/18 02/05/18 17:36 00:34 02:31 WBC RBC Hgb Hct MCHC Plt Count 84 L Lymph % (Auto) [place] # Seg Neutrophils % Seg Neuts % (Manual) Lymphocytes % (Manual) Seg Neutrophils # Seg Neutrophils # Man Sodium Potassium Chloride Carbon Dioxide BUN Creatinine Glucose POC Glucose 201 H 200 H Calcium Magnesium AST ALT Lactate Dehydrogenase C-Reactive Protein Total Protein Albumin Triglycerides Cholesterol LDL Cholesterol Direct HDL Cholesterol Amylase Lipase Urine Chloride 02/05/18 02/05/18 02/05/18 02:31 06:18 11:28 WBC RBC Hgb Hct MCHC Plt Count Lymph % (Auto) [place] # Seg Neutrophils % Seg Neuts % (Manual) Lymphocytes % (Manual) Seg Neutrophils # Seg Neutrophils # Man Sodium 132 L Potassium Chloride Carbon Dioxide 21 L BUN 8 L Creatinine 0.6 L Glucose 203 H POC Glucose 196 H 257 H Calcium 8.1 L Magnesium AST ALT Lactate Dehydrogenase C-Reactive Protein Total Protein Albumin Triglycerides Cholesterol LDL Cholesterol Direct HDL Cholesterol Amylase Lipase Urine Chloride 02/05/18 02/06/18 02/06/18 17:23 00:04 02:09 WBC RBC Hgb Hct MCHC Plt Count 101 L Lymph % (Auto) [place] # Seg Neutrophils % Seg Neuts % (Manual) Lymphocytes % (Manual) Seg Neutrophils # Seg Neutrophils # Man Sodium Potassium Chloride Carbon Dioxide BUN Creatinine Glucose POC Glucose 230 H 198 H Calcium Magnesium AST ALT Lactate Dehydrogenase C-Reactive Protein Total Protein Albumin Triglycerides Cholesterol LDL Cholesterol Direct HDL Cholesterol Amylase Lipase Urine Chloride 02/06/18 02/06/18 02/06/18 02:09 05:11 12:05 WBC RBC Hgb Hct MCHC Plt Count Lymph % (Auto) [place] # Seg Neutrophils % Seg Neuts % (Manual) Lymphocytes % (Manual) Seg Neutrophils # Seg Neutrophils # Man Sodium 131 L Potassium 3.2 L Chloride 95.5 L Carbon Dioxide 21 L BUN Creatinine 0.6 L Glucose 229 H POC Glucose 234 H 195 H Calcium 8.2 L Magnesium AST ALT Lactate Dehydrogenase C-Reactive Protein Total Protein Albumin Triglycerides Cholesterol LDL Cholesterol Direct HDL Cholesterol Amylase Lipase Urine Chloride 02/06/18 02/06/18 02/07/18 16:30 21:18 03:59 WBC RBC 5.07 H Hgb Hct MCHC Plt Count 120 L Lymph % (Auto) [place] # Seg Neutrophils % Seg Neuts % (Manual) Lymphocytes % (Manual) Seg Neutrophils # Seg Neutrophils # Man Sodium Potassium Chloride Carbon Dioxide BUN Creatinine Glucose POC Glucose 196 H 249 H Calcium Magnesium AST ALT Lactate Dehydrogenase C-Reactive Protein Total Protein Albumin Triglycerides Cholesterol LDL Cholesterol Direct HDL Cholesterol Amylase Lipase Urine Chloride 02/07/18 02/07/18 02/07/18 03:59 06:37 11:36 WBC RBC Hgb Hct MCHC Plt Count Lymph % (Auto) [place] # Seg Neutrophils % Seg Neuts % (Manual) Lymphocytes % (Manual) Seg Neutrophils # Seg Neutrophils # Man Sodium 127 L Potassium 3.5 L Chloride 85.1 L Carbon Dioxide 20 L BUN Creatinine 0.5 L Glucose 211 H POC Glucose 211 H 230 H Calcium 8.1 L Magnesium AST ALT Lactate Dehydrogenase C-Reactive Protein Total Protein Albumin Triglycerides Cholesterol LDL Cholesterol Direct HDL Cholesterol Amylase Lipase Urine Chloride 02/07/18 02/07/18 02/08/18 16:45 21:58 05:09 WBC RBC Hgb Hct MCHC Plt Count Lymph % (Auto) [place] # Seg Neutrophils % Seg Neuts % (Manual) Lymphocytes % (Manual) Seg Neutrophils # Seg Neutrophils # Man Sodium 133 L Potassium Chloride 95.1 L Carbon Dioxide 21 L BUN Creatinine 0.7 L Glucose 202 H POC Glucose 185 H 196 H Calcium Magnesium AST ALT Lactate Dehydrogenase C-Reactive Protein Total Protein Albumin Triglycerides Cholesterol LDL Cholesterol Direct HDL Cholesterol Amylase Lipase Urine Chloride 02/08/18 02/08/18 02/08/18 08:11 11:28 16:39 WBC RBC Hgb Hct MCHC Plt Count Lymph % (Auto) [place] # Seg Neutrophils % Seg Neuts % (Manual) Lymphocytes % (Manual) Seg Neutrophils # Seg Neutrophils # Man Sodium Potassium Chloride Carbon Dioxide BUN Creatinine Glucose POC Glucose 188 H 233 H 203 H Calcium Magnesium AST ALT Lactate Dehydrogenase C-Reactive Protein Total Protein Albumin Triglycerides Cholesterol LDL Cholesterol Direct HDL Cholesterol Amylase Lipase Urine Chloride 02/08/18 02/09/18 02/09/18 20:46 04:30 07:54 WBC RBC Hgb Hct MCHC Plt Count Lymph % (Auto) [place] # Seg Neutrophils % Seg Neuts % (Manual) Lymphocytes % (Manual) Seg Neutrophils # Seg Neutrophils # Man Sodium 135 L Potassium Chloride 97.2 L Carbon Dioxide BUN Creatinine 0.7 L Glucose 197 H POC Glucose 207 H 181 H Calcium Magnesium AST ALT Lactate Dehydrogenase C-Reactive Protein Total Protein Albumin Triglycerides Cholesterol LDL Cholesterol Direct HDL Cholesterol Amylase Lipase Urine Chloride 02/09/18 02/09/18 02/09/18 11:48 12:40 21:28 WBC RBC Hgb Hct MCHC Plt Count Lymph % (Auto) [place] # Seg Neutrophils % Seg Neuts % (Manual) Lymphocytes % (Manual) Seg Neutrophils # Seg Neutrophils # Man Sodium Potassium Chloride Carbon Dioxide BUN Creatinine Glucose POC Glucose 205 H 212 H Calcium Magnesium AST ALT Lactate Dehydrogenase C-Reactive Protein Total Protein Albumin Triglycerides Cholesterol LDL Cholesterol Direct HDL Cholesterol Amylase Lipase Urine Chloride 62.2 L 02/10/18 02/10/18 02/10/18 04:19 07:32 11:14 WBC RBC Hgb Hct MCHC Plt Count Lymph % (Auto) [place] # Seg Neutrophils % Seg Neuts % (Manual) Lymphocytes % (Manual) Seg Neutrophils # Seg Neutrophils # Man Sodium 135 L Potassium Chloride 96.3 L Carbon Dioxide BUN Creatinine Glucose 146 H POC Glucose 145 H 245 H Calcium Magnesium AST ALT Lactate Dehydrogenase 257 H C-Reactive Protein 7.10 H Total Protein Albumin 3.1 L Triglycerides Cholesterol LDL Cholesterol Direct HDL Cholesterol Amylase Lipase Urine Chloride Chest x-ray: report reviewed, image reviewed (L basilar atelectasis; effusion better) Allied health notes reviewed: nursing
[2018-02-11] MEDS: HumuLIN R SUB-Q SCH ×4 (00:29→18:11)
[2018-02-11 05:27] LABS: Hematocrit 39.8 % (35.5-45.6); Hemoglobin 13.3 gm/dl (11.8-15.2); Mean Corpuscular HGB Conc 34 % (32-34); Mean Corpuscular Hemoglobin 29 pg (28-32); Mean Corpuscular Volume 86 fl (84-94); Platelet Count 198 K/mm3 (140-440); Red Blood Count 4.64 M/mm3 (3.65-5.03); Red Cell Distribution Width 14.3 % (13.2-15.2)
[2018-02-11 05:41] LABS: BUN/Creatinine Ratio 13; Blood Urea Nitrogen 12 mg/dL (9-20); Calcium 8.6 mg/dL (8.4-10.2); Hemolysis Index 12
[2018-02-11] MEDS: TYLENOL PO PRN (08:45)
[2018-02-11] MEDS: PEPCID PO SCH ×2 (08:48→10:05)
[2018-02-11] MEDS: LOVENOX SUB-Q SCH ×2 (08:48→10:05)
--- NOTE | 2018-02-11 09:24 | XRay Report ---
FINAL REPORT EXAM: XR CHEST ROUTINE 2V HISTORY: follow up pleural effusion TECHNIQUE: Chest, two views PRIORS: None. FINDINGS: The heart size is normal. Mediastinal contours are normal. Pulmonary vasculature is not congested. There is some atelectasis at the left base. There is a small left pleural effusion. There is no evidence of pneumothorax. IMPRESSION: Small left pleural effusion and atelectasis at the left lung base.
[2018-02-11] MEDS: SODIUM CHLORIDE FLUSH SYRINGE 10 ML IV SCH (10:04)
--- NOTE | 2018-02-11 10:34 | Progress Note ---
Assessment and Plan - Patient Problems (1) Hyponatremia Current Visit: Yes Status: Acute Plan to address problem: Hyponatremia in the setting of hyperglycemia, hyperlipidemia, abdominal pain and discomfort from acute pancreatitis. Overall serum sodium levels are stable. Will continue to monitor. Serum sodium levels are stable. From a renal standpoint patient is stable for DC to follow up with his PCP. (2) Diabetes mellitus Current Visit: Yes Status: Acute Plan to address problem: Patient with initial presentation of DKA in the setting of new onset diabetes. Currently on insulin regimen. Management per primary team. (3) Acute pancreatitis Current Visit: Yes Status: Acute Plan to address problem: Overall pain management seems to be improving. He is slowly increasing his overall diet. Increased pain can stimulate ADH secretion, which can lead to low serum sodium levels. We will continue to monitor. He has been taken off all antibiotics at this time. CT abd/pelvis findings noted. (4) Pleural effusion on left Current Visit: Yes Status: Acute Plan to address problem: Patient is on incentive spirometer. Management per pulmonology team. s/p thoracentesis POD 1. Subjective Date of service: 02/11/18 Principal diagnosis: pancreatitis, DKA Interval history: No acute issues overnight. labs stable. S/P thoracentesis. repeat am chest xray noted. Objective - Vital Signs Vital signs: Vital Signs - 12hr 02/11/18 02/11/18 00:01 05:40 Temperature 98.1 F 97.8 F Pulse Rate 86 79 Respiratory 16 16 Rate Blood Pressure 118/81 114/79 O2 Sat by Pulse 96 95 Oximetry - General Appearance General appearance: well-developed, well-nourished EENT: ATNC, PERRL Neck: no JVD, no thyromegaly Respiratory: Present: Clear to Ascultation Cardiology: regular, S1S2 Gastrointestinal: normal, normoactive bowel sounds Integumentary: no rash, warm and dry Neurologic: no focal deficit, no asterixis, alert and oriented x3 Musculoskeletal: other (-edema) Psychiatric: mood/affect appropriate, cooperative - Lab 02/11/18 04:35 02/11/18 04:35 Most recent lab results Calcium 8.6 mg/dL (8.4-10.2) 02/11/18 04:35 Phosphorus 3.88 mg/dL (2.5-4.5) 02/02/18 14:17 Magnesium 1.70 mg/dL (1.7-2.3) 02/05/18 02:31 Urine Sodium 50 mmol/L 02/09/18 12:40 - Allied health notes Allied health notes reviewed: nursing Medications & Allergies - Medications Allergies/Adverse Reactions: Allergies No Known Allergies Allergy (Unverified 02/02/18 09:56) Home Medications: Home Medications Medication Instructions Recorded Confirmed Last Taken Type No Known Home Medications [No 02/02/18 02/02/18 Unknown History Reported Home Medications] Active Medications: Generic Name Dose Route Start Last Admin Trade Name Freq PRN Reason Stop Dose Admin Acetaminophen 650 mg 02/02/18 16:50 02/11/18 08:45 Tylenol PO 650 mg Q4H PRN Administration Pain MILD(1-3)/Fever >100.5/RODRIGUEZ Dextrose 50 ml 02/04/18 12:08 D50w (25gm) Syringe IV PRN PRN Hypoglycemia Enoxaparin Sodium 40 mg 02/03/18 12:00 02/11/18 10:05 Lovenox SUB-Q Not Given QDAY@1000 [facility] Famotidine 20 mg 02/06/18 10:00 02/11/18 10:05 Pepcid PO Not Given BID [facility] Hydromorphone HCl 1 mg 02/02/18 16:50 02/10/18 18:23 Dilaudid IV 1 mg Q3H PRN Administration Pain, Moderate (4-6) Insulin Human NPH 15 unit 02/06/18 17:00 02/11/18 08:46 Humulin N SUB-Q 15 unit BIDDIAB [facility] Administration Insulin Human Regular 0 units 02/09/18 11:30 02/11/18 08:47 Humulin R SUB-Q 3 units ACHS [facility] Administration Protocol Ondansetron HCl 4 mg 02/02/18 16:50 Zofran IV Q8H PRN Nausea And Vomiting Sodium Chloride 10 ml 02/02/18 22:00 02/11/18 10:04 Sodium Chloride Flush Syringe 10 Ml IV 10 ml BID [facility] Administration Sodium Chloride 10 ml 02/02/18 16:50 Sodium Chloride Flush Syringe 10 Ml IV PRN PRN LINE FLUSH
--- NOTE | 2018-02-11 12:02 | Progress Note ---
Assessment and Plan Left pleural effusion. Status post thoracentesis. The lip to be secondary to recent pancreatitis-tap chemistry results are not available. DKA. Resolved Acute pancreatitis. Again, tolerating clear liquids. No pain. No vomiting Recommendations Check pleural chemistries. Can be monitored at the office as outpatient, if patient is discharged Advance by mouth diet as tolerated Adjust up long-acting insulin, monitor sliding scale,avois hypoglicemia.Reviewed with PharmD DVT prophylaxis Blood sugar monitoring, management per hospitalist medicine. Discussed with patient in detail. All questions answered. Subjective Date of service: 02/11/18 Principal diagnosis: pancreatitis, DKA Objective Vital Signs - 12hr 02/11/18 02/11/18 00:01 05:40 Temperature 98.1 F 97.8 F Pulse Rate 86 79 Respiratory 16 16 Rate Blood Pressure 118/81 114/79 O2 Sat by Pulse 96 95 Oximetry Constitutional: no acute distress Eyes: non-icteric ENT: oropharynx moist Neck: supple, no lymphadenopathy Effort: normal Ascultation: Left: diminished breath sounds (base, better), Bilateral: clear Percussion: Left: dull (base) Tactile fremitus: Left: diminished (base) Cardiovascular: regular rate and rhythm (no mrg) Gastrointestinal: normoactive bowel sounds, non-distended Integumentary: normal Extremities: no cyanosis, no cyanosis, no cyanosis Neurologic: normal mental status, non-focal exam Psychiatric: mood appropriate, affect normal CBC and BMP: 02/11/18 04:35 02/11/18 04:35 ABG, PT/INR, D-dimer: PT/INR, D-dimer PT 13.8 Sec. (12.2-14.9) 02/10/18 06:31 INR 1.02 (0.87-1.13) 02/10/18 06:31 Abnormal lab findings: Abnormal Labs 02/02/18 02/02/18 02/02/18 11:47 14:17 16:58 WBC 20.3 H RBC 5.97 H Hgb Hct 51.5 H MCHC Plt Count Lymph % (Auto) [place] # Seg Neutrophils % Seg Neuts % (Manual) 80.0 H Lymphocytes % (Manual) 6.0 L Seg Neutrophils # Seg Neutrophils # Man 16.2 H Sodium Potassium Chloride 96 L Carbon Dioxide 12 L BUN Creatinine Glucose 390 H POC Glucose 322 H Calcium Magnesium 1.64 L AST ALT Lactate Dehydrogenase C-Reactive Protein Total Protein Albumin Triglycerides 301.2 H Cholesterol 27.6 L LDL Cholesterol Direct 0 L HDL Cholesterol 13.2 L Amylase 448.8 H Lipase > 300 H Urine Chloride 02/02/18 02/02/18 02/02/18 19:31 20:19 20:34 WBC RBC Hgb Hct MCHC Plt Count Lymph % (Auto) [place] # Seg Neutrophils % Seg Neuts % (Manual) Lymphocytes % (Manual) Seg Neutrophils # Seg Neutrophils # Man Sodium 129 L D Potassium Chloride 97.2 L Carbon Dioxide 11 L BUN Creatinine 0.5 L Glucose 293 H POC Glucose 281 H 246 H Calcium 7.1 L D Magnesium AST < 5 L ALT < 5 L Lactate Dehydrogenase C-Reactive Protein Total Protein 5.0 L D Albumin 3.2 L Triglycerides Cholesterol LDL Cholesterol Direct HDL Cholesterol Amylase Lipase Urine Chloride 02/02/18 02/02/18 02/02/18 21:11 21:32 22:37 WBC RBC Hgb Hct MCHC Plt Count Lymph % (Auto) [place] # Seg Neutrophils % Seg Neuts % (Manual) Lymphocytes % (Manual) Seg Neutrophils # Seg Neutrophils # Man Sodium 129 L Potassium Chloride 97.3 L Carbon Dioxide 12 L BUN Creatinine 0.5 L Glucose 277 H POC Glucose 246 H 262 H Calcium 2.4 L* D Magnesium AST ALT Lactate Dehydrogenase C-Reactive Protein Total Protein Albumin Triglycerides Cholesterol LDL Cholesterol Direct HDL Cholesterol Amylase Lipase Urine Chloride 02/02/18 02/02/18 02/03/18 23:01 23:29 00:25 WBC RBC Hgb Hct MCHC Plt Count Lymph % (Auto) [place] # Seg Neutrophils % Seg Neuts % (Manual) Lymphocytes % (Manual) Seg Neutrophils # Seg Neutrophils # Man Sodium 130 L Potassium Chloride Carbon Dioxide 11 L BUN Creatinine 0.7 L Glucose 268 H POC Glucose 226 H 229 H Calcium 7.0 L D Magnesium AST ALT Lactate Dehydrogenase C-Reactive Protein Total Protein Albumin Triglycerides Cholesterol LDL Cholesterol Direct HDL Cholesterol Amylase Lipase Urine Chloride 02/03/18 02/03/18 02/03/18 00:58 01:37 02:33 WBC RBC Hgb Hct MCHC Plt Count Lymph % (Auto) [place] # Seg Neutrophils % Seg Neuts % (Manual) Lymphocytes % (Manual) Seg Neutrophils # Seg Neutrophils # Man Sodium 132 L Potassium Chloride Carbon Dioxide 12 L BUN Creatinine 0.5 L Glucose 240 H POC Glucose 226 H 221 H Calcium 6.8 L Magnesium AST ALT Lactate Dehydrogenase C-Reactive Protein Total Protein Albumin Triglycerides Cholesterol LDL Cholesterol Direct HDL Cholesterol Amylase Lipase Urine Chloride 02/03/18 02/03/18 02/03/18 04:08 04:43 04:43 WBC 15.7 H RBC 5.88 H Hgb 18.1 H Hct 50.9 H MCHC 36 H Plt Count Lymph % (Auto) 8.8 L [place]ak[place] # 1.0 H Seg Neutrophils % 84.1 H Seg Neuts % (Manual) Lymphocytes % (Manual) Seg Neutrophils # 13.2 H Seg Neutrophils # Man Sodium 135 L Potassium Chloride Carbon Dioxide 11 L BUN 8 L Creatinine 0.7 L Glucose 271 H POC Glucose 209 H Calcium 7.0 L Magnesium AST ALT Lactate Dehydrogenase C-Reactive Protein Total Protein 5.7 L Albumin 3.2 L Triglycerides Cholesterol LDL Cholesterol Direct HDL Cholesterol Amylase Lipase 141 H Urine Chloride 02/03/18 02/03/18 02/03/18 04:56 05:59 07:05 WBC RBC Hgb Hct MCHC Plt Count Lymph % (Auto) [place] # Seg Neutrophils % Seg Neuts % (Manual) Lymphocytes % (Manual) Seg Neutrophils # Seg Neutrophils # Man Sodium Potassium Chloride Carbon Dioxide BUN Creatinine Glucose POC Glucose 242 H 200 H 171 H Calcium Magnesium AST ALT Lactate Dehydrogenase C-Reactive Protein Total Protein Albumin Triglycerides Cholesterol LDL Cholesterol Direct HDL Cholesterol Amylase Lipase Urine Chloride 02/03/18 02/03/18 02/03/18 08:09 09:02 10:11 WBC RBC Hgb Hct MCHC Plt Count Lymph % (Auto) [place] # Seg Neutrophils % Seg Neuts % (Manual) Lymphocytes % (Manual) Seg Neutrophils # Seg Neutrophils # Man Sodium Potassium Chloride Carbon Dioxide BUN Creatinine Glucose POC Glucose 209 H 226 H 204 H Calcium Magnesium AST ALT Lactate Dehydrogenase C-Reactive Protein Total Protein Albumin Triglycerides Cholesterol LDL Cholesterol Direct HDL Cholesterol Amylase Lipase Urine Chloride 02/03/18 02/03/18 02/03/18 11:11 12:09 13:18 WBC RBC Hgb Hct MCHC Plt Count Lymph % (Auto) [place] # Seg Neutrophils % Seg Neuts % (Manual) Lymphocytes % (Manual) Seg Neutrophils # Seg Neutrophils # Man Sodium Potassium Chloride Carbon Dioxide BUN Creatinine Glucose POC Glucose 185 H 164 H 160 H Calcium Magnesium AST ALT Lactate Dehydrogenase C-Reactive Protein Total Protein Albumin Triglycerides Cholesterol LDL Cholesterol Direct HDL Cholesterol Amylase Lipase Urine Chloride 02/03/18 02/03/18 02/03/18 14:31 15:32 16:58 WBC RBC Hgb Hct MCHC Plt Count Lymph % (Auto) [place] # Seg Neutrophils % Seg Neuts % (Manual) Lymphocytes % (Manual) Seg Neutrophils # Seg Neutrophils # Man Sodium Potassium Chloride Carbon Dioxide BUN Creatinine Glucose POC Glucose 190 H 170 H 145 H Calcium Magnesium AST ALT Lactate Dehydrogenase C-Reactive Protein Total Protein Albumin Triglycerides Cholesterol LDL Cholesterol Direct HDL Cholesterol Amylase Lipase Urine Chloride 02/03/18 02/03/18 02/03/18 17:23 18:19 20:09 WBC RBC Hgb Hct MCHC Plt Count Lymph % (Auto) [place] # Seg Neutrophils % Seg Neuts % (Manual) Lymphocytes % (Manual) Seg Neutrophils # Seg Neutrophils # Man Sodium 135 L Potassium Chloride 107.5 H Carbon Dioxide 15 L BUN 7 L Creatinine 0.6 L Glucose 173 H POC Glucose 171 H 157 H Calcium 7.2 L Magnesium AST ALT Lactate Dehydrogenase C-Reactive Protein Total Protein Albumin Triglycerides Cholesterol LDL Cholesterol Direct HDL Cholesterol Amylase Lipase Urine Chloride 02/03/18 02/03/18 02/03/18 20:52 22:12 23:15 WBC RBC Hgb Hct MCHC Plt Count Lymph % (Auto) [place] # Seg Neutrophils % Seg Neuts % (Manual) Lymphocytes % (Manual) Seg Neutrophils # Seg Neutrophils # Man Sodium Potassium Chloride Carbon Dioxide BUN Creatinine Glucose POC Glucose 144 H 156 H 153 H Calcium Magnesium AST ALT Lactate Dehydrogenase C-Reactive Protein Total Protein Albumin Triglycerides Cholesterol LDL Cholesterol Direct HDL Cholesterol Amylase Lipase Urine Chloride 02/04/18 02/04/18 02/04/18 00:26 00:42 01:24 WBC RBC Hgb Hct MCHC Plt Count Lymph % (Auto) [place] # Seg Neutrophils % Seg Neuts % (Manual) Lymphocytes % (Manual) Seg Neutrophils # Seg Neutrophils # Man Sodium 133 L Potassium Chloride Carbon Dioxide 17 L BUN 8 L Creatinine 0.5 L Glucose 158 H POC Glucose 139 H 126 H Calcium 7.2 L Magnesium AST ALT Lactate Dehydrogenase C-Reactive Protein Total Protein Albumin Triglycerides Cholesterol LDL Cholesterol Direct HDL Cholesterol Amylase Lipase Urine Chloride 02/04/18 02/04/18 02/04/18 02:16 03:33 04:54 WBC RBC Hgb Hct MCHC Plt Count Lymph % (Auto) [place] # Seg Neutrophils % Seg Neuts % (Manual) Lymphocytes % (Manual) Seg Neutrophils # Seg Neutrophils # Man Sodium 134 L Potassium Chloride Carbon Dioxide 18 L BUN 8 L Creatinine 0.6 L Glucose 119 H POC Glucose 159 H 113 H Calcium 7.6 L Magnesium AST ALT Lactate Dehydrogenase C-Reactive Protein Total Protein Albumin Triglycerides Cholesterol LDL Cholesterol Direct HDL Cholesterol Amylase Lipase Urine Chloride 02/04/18 02/04/18 02/04/18 04:57 07:49 09:30 WBC RBC Hgb Hct MCHC Plt Count Lymph % (Auto) [place] # Seg Neutrophils % Seg Neuts % (Manual) Lymphocytes % (Manual) Seg Neutrophils # Seg Neutrophils # Man Sodium Potassium Chloride Carbon Dioxide BUN Creatinine Glucose POC Glucose 106 H 151 H 177 H Calcium Magnesium AST ALT Lactate Dehydrogenase C-Reactive Protein Total Protein Albumin Triglycerides Cholesterol LDL Cholesterol Direct HDL Cholesterol Amylase Lipase Urine Chloride 02/04/18 02/04/18 02/04/18 10:54 12:39 13:10 WBC RBC Hgb Hct MCHC Plt Count Lymph % (Auto) [place] # Seg Neutrophils % Seg Neuts % (Manual) Lymphocytes % (Manual) Seg Neutrophils # Seg Neutrophils # Man Sodium 132 L Potassium Chloride Carbon Dioxide 18 L BUN 8 L Creatinine 0.6 L Glucose 171 H POC Glucose 185 H 155 H Calcium 8.0 L Magnesium AST ALT Lactate Dehydrogenase C-Reactive Protein Total Protein Albumin Triglycerides Cholesterol LDL Cholesterol Direct HDL Cholesterol Amylase Lipase Urine Chloride 02/04/18 02/05/18 02/05/18 17:36 00:34 02:31 WBC RBC Hgb Hct MCHC Plt Count 84 L Lymph % (Auto) [place] # Seg Neutrophils % Seg Neuts % (Manual) Lymphocytes % (Manual) Seg Neutrophils # Seg Neutrophils # Man Sodium Potassium Chloride Carbon Dioxide BUN Creatinine Glucose POC Glucose 201 H 200 H Calcium Magnesium AST ALT Lactate Dehydrogenase C-Reactive Protein Total Protein Albumin Triglycerides Cholesterol LDL Cholesterol Direct HDL Cholesterol Amylase Lipase Urine Chloride 02/05/18 02/05/18 02/05/18 02:31 06:18 11:28 WBC RBC Hgb Hct MCHC Plt Count Lymph % (Auto) [place] # Seg Neutrophils % Seg Neuts % (Manual) Lymphocytes % (Manual) Seg Neutrophils # Seg Neutrophils # Man Sodium 132 L Potassium Chloride Carbon Dioxide 21 L BUN 8 L Creatinine 0.6 L Glucose 203 H POC Glucose 196 H 257 H Calcium 8.1 L Magnesium AST ALT Lactate Dehydrogenase C-Reactive Protein Total Protein Albumin Triglycerides Cholesterol LDL Cholesterol Direct HDL Cholesterol Amylase Lipase Urine Chloride 02/05/18 02/06/1818 17:23 00:04 02:09 WBC RBC Hgb Hct MCHC Plt Count 101 L Lymph % (Auto) [place] # Seg Neutrophils % Seg Neuts % (Manual) Lymphocytes % (Manual) Seg Neutrophils # Seg Neutrophils # Man Sodium Potassium Chloride Carbon Dioxide BUN Creatinine Glucose POC Glucose 230 H 198 H Calcium Magnesium AST ALT Lactate Dehydrogenase C-Reactive Protein Total Protein Albumin Triglycerides Cholesterol LDL Cholesterol Direct HDL Cholesterol Amylase Lipase Urine Chloride 02/06/18 02/06/18 02/06/18 02:09 05:11 12:05 WBC RBC Hgb Hct MCHC Plt Count Lymph % (Auto) [place] # Seg Neutrophils % Seg Neuts % (Manual) Lymphocytes % (Manual) Seg Neutrophils # Seg Neutrophils # Man Sodium 131 L Potassium 3.2 L Chloride 95.5 L Carbon Dioxide 21 L BUN Creatinine 0.6 L Glucose 229 H POC Glucose 234 H 195 H Calcium 8.2 L Magnesium AST ALT Lactate Dehydrogenase C-Reactive Protein Total Protein Albumin Triglycerides Cholesterol LDL Cholesterol Direct HDL Cholesterol Amylase Lipase Urine Chloride 02/06/18 02/06/18 02/07/18 16:30 21:18 03:59 WBC RBC 5.07 H Hgb Hct MCHC Plt Count 120 L Lymph % (Auto) [place] # Seg Neutrophils % Seg Neuts % (Manual) Lymphocytes % (Manual) Seg Neutrophils # Seg Neutrophils # Man Sodium Potassium Chloride Carbon Dioxide BUN Creatinine Glucose POC Glucose 196 H 249 H Calcium Magnesium AST ALT Lactate Dehydrogenase C-Reactive Protein Total Protein Albumin Triglycerides Cholesterol LDL Cholesterol Direct HDL Cholesterol Amylase Lipase Urine Chloride 02/07/18 02/07/18 02/07/18 03:59 06:37 11:36 WBC RBC Hgb Hct MCHC Plt Count Lymph % (Auto) [place] # Seg Neutrophils % Seg Neuts % (Manual) Lymphocytes % (Manual) Seg Neutrophils # Seg Neutrophils # Man Sodium 127 L Potassium 3.5 L Chloride 85.1 L Carbon Dioxide 20 L BUN Creatinine 0.5 L Glucose 211 H POC Glucose 211 H 230 H Calcium 8.1 L Magnesium AST ALT Lactate Dehydrogenase C-Reactive Protein Total Protein Albumin Triglycerides Cholesterol LDL Cholesterol Direct HDL Cholesterol Amylase Lipase Urine Chloride 02/07/18 02/07/18 02/08/18 16:45 21:58 05:09 WBC RBC Hgb Hct MCHC Plt Count Lymph % (Auto) [place] # Seg Neutrophils % Seg Neuts % (Manual) Lymphocytes % (Manual) Seg Neutrophils # Seg Neutrophils # Man Sodium 133 L Potassium Chloride 95.1 L Carbon Dioxide 21 L BUN Creatinine 0.7 L Glucose 202 H POC Glucose 185 H 196 H Calcium Magnesium AST ALT Lactate Dehydrogenase C-Reactive Protein Total Protein Albumin Triglycerides Cholesterol LDL Cholesterol Direct HDL Cholesterol Amylase Lipase Urine Chloride 02/08/18 02/08/18 02/08/18 08:11 11:28 16:39 WBC RBC Hgb Hct MCHC Plt Count Lymph % (Auto) [place] # Seg Neutrophils % Seg Neuts % (Manual) Lymphocytes % (Manual) Seg Neutrophils # Seg Neutrophils # Man Sodium Potassium Chloride Carbon Dioxide BUN Creatinine Glucose POC Glucose 188 H 233 H 203 H Calcium Magnesium AST ALT Lactate Dehydrogenase C-Reactive Protein Total Protein Albumin Triglycerides Cholesterol LDL Cholesterol Direct HDL Cholesterol Amylase Lipase Urine Chloride 02/08/18 02/09/18 02/09/18 20:46 04:30 07:54 WBC RBC Hgb Hct MCHC Plt Count Lymph % (Auto) [place] # Seg Neutrophils % Seg Neuts % (Manual) Lymphocytes % (Manual) Seg Neutrophils # Seg Neutrophils # Man Sodium 135 L Potassium Chloride 97.2 L Carbon Dioxide BUN Creatinine 0.7 L Glucose 197 H POC Glucose 207 H 181 H Calcium Magnesium AST ALT Lactate Dehydrogenase C-Reactive Protein Total Protein Albumin Triglycerides Cholesterol LDL Cholesterol Direct HDL Cholesterol Amylase Lipase Urine Chloride 02/09/18 02/09/18 02/09/18 11:48 12:40 21:28 WBC RBC Hgb Hct MCHC Plt Count Lymph % (Auto) [place] # Seg Neutrophils % Seg Neuts % (Manual) Lymphocytes % (Manual) Seg Neutrophils # Seg Neutrophils # Man Sodium Potassium Chloride Carbon Dioxide BUN Creatinine Glucose POC Glucose 205 H 212 H Calcium Magnesium AST ALT Lactate Dehydrogenase C-Reactive Protein Total Protein Albumin Triglycerides Cholesterol LDL Cholesterol Direct HDL Cholesterol Amylase Lipase Urine Chloride 62.2 L 02/10/18 02/10/18 02/10/18 04:19 07:32 11:14 WBC RBC Hgb Hct MCHC Plt Count Lymph % (Auto) [place] # Seg Neutrophils % Seg Neuts % (Manual) Lymphocytes % (Manual) Seg Neutrophils # Seg Neutrophils # Man Sodium 135 L Potassium Chloride 96.3 L Carbon Dioxide BUN Creatinine Glucose 146 H POC Glucose 145 H 245 H Calcium Magnesium AST ALT Lactate Dehydrogenase 257 H C-Reactive Protein 7.10 H Total Protein Albumin 3.1 L Triglycerides Cholesterol LDL Cholesterol Direct HDL Cholesterol Amylase Lipase Urine Chloride 12/02/10/18 02/11/18 16:36 21:31 04:35 WBC RBC Hgb Hct MCHC Plt Count Lymph % (Auto) [place] # Seg Neutrophils % Seg Neuts % (Manual) Lymphocytes % (Manual) Seg Neutrophils # Seg Neutrophils # Man Sodium 135 L Potassium Chloride 97.2 L Carbon Dioxide BUN Creatinine Glucose 182 H POC Glucose 205 H 186 H Calcium Magnesium AST ALT Lactate Dehydrogenase C-Reactive Protein Total Protein Albumin Triglycerides Cholesterol LDL Cholesterol Direct HDL Cholesterol Amylase Lipase Urine Chloride 02/11/18 02/11/18 07:56 11:41 WBC RBC Hgb Hct MCHC Plt Count Lymph % (Auto) [place] # Seg Neutrophils % Seg Neuts % (Manual) Lymphocytes % (Manual) Seg Neutrophils # Seg Neutrophils # Man Sodium Potassium Chloride Carbon Dioxide BUN Creatinine Glucose POC Glucose 165 H 209 H Calcium Magnesium AST ALT Lactate Dehydrogenase C-Reactive Protein Total Protein Albumin Triglycerides Cholesterol LDL Cholesterol Direct HDL Cholesterol Amylase Lipase Urine Chloride Allied health notes reviewed: nursing
--- NOTE | 2018-02-11 14:31 | Discharge Summary ---
Providers - Providers Date of Admission: 02/02/18 16:50 Attending physician: RINKU WAN MD 02/02/18 16:57 Consult to Dietitian/Nutrition [CONS] Routine Physician Instructions: Reason For Exam: DKA Reason for Consult: Nutrition Recommendations Reason for Consult: Diet education 02/02/18 16:59 Consult to Physician [CONS] Routine Comment: A/S NOTIFIED 1700 Consulting Provider: ROYA LEPE Physician Instructions: Reason For Exam: ACUTE PANCREATITIS WITH HYPEROSMOLAR HYPERGLYCEMIA 02/03/18 12:17 Consult to Physician [CONS] Routine Comment: Consulting Provider: KENNEDY BILLINGSLEY Physician Instructions: Reason For Exam: acute pancreatitis 02/07/18 11:30 Consult to Physician [CONS] Routine Comment: Consulting Provider: TAMERA DREW Physician Instructions: Reason For Exam: hyponatremia 02/07/18 11:36 Consult to Physician [CONS] Routine Comment: Consulting Provider: JAGDEEP MENDOZA Physician Instructions: I notified Reason For Exam: new onset of fevers 02/08/18 13:23 Consult to Physician [CONS] Routine Comment: Consulting Provider: ROYA LEPE Physician Instructions: Reason For Exam: large left pleural effusion, re-evalutate 02/09/18 13:46 Consult to Physician [CONS] Routine Comment: Consulting Provider: YASMINE BONNER Physician Instructions: I notified, just add to his list Reason For Exam: pancreatitis complications Primary care physician: [employer] Hospitalization Condition: Fair Hospital course: Patient is a 27-year-old man with history of dyslipidemia who presented to [facility] ED with abdominal pains and constipation. He was found to have new onset DM with DKA and pancreatitis Acute severe idiopathic pancreatitis: advance diet to GI soft, pain control, CT abd/pelvis noted, re-consulted and seen by GI New onset DM with DKA: anion gap closed, off insulin drip, now on long acting, education done regarding OTC insulin if he has no insurance Leukocytosis and Sinus tachycardia, SIRS with organ dysfunction, poa: treat the underlying condition Fevers, ?pancreatits related vs underlying pna with pleural effusion vs other: get blood culture, abd xr, cxr, ua, started empiric abx IV zosyn==>cxr showed moderate to large pleural effusion, ID following Left Moderate Pleural Effusion most likely pancreatitis related vs PNA vs other, but defer to Pulmonology: gave lasix 40mg iv x 1 02/06/18 with good results but now electrolyte imbalances Hyponatremia at 127: consulted Nephrology Hypokalemia: replete and recheck in AM Thrombocytopenia: monitoring cbc daily DVT prophylaxis: on sq lovenox full code Disposition: continue inpatient care, await thoracentesis results, await afebrile for 24 hours, last fevers were yesterday at 5:41pm Thoracentesis done today, Pulmonology to follow up. Disposition: DC- TO HOME OR SELFCARE Time spent for discharge: 33 mins Core Measure Documentation - Palliative Care Palliative Care/ Comfort Measures: Not Applicable - Core Measures Any of the following diagnoses?: none Exam - Constitutional Vitals: Temp Pulse Resp BP Pulse Ox 97.8 F 79 16 114/79 95 02/11/18 05:40 02/11/18 05:40 02/11/18 05:40 02/11/18 05:40 02/11/18 05:40 General appearance: Present: no acute distress, well-nourished - EENT Eyes: Present: PERRL ENT: hearing intact, clear oral mucosa - Neck Neck: Present: supple, normal ROM - Respiratory Respiratory effort: normal Respiratory: bilateral: CTA - Cardiovascular Heart Sounds: Present: S1 & S2. Absent: rub, click - Extremities Extremities: pulses symmetrical, No edema Peripheral Pulses: within normal limits - Abdominal General gastrointestinal: Present: soft, non-tender, non-distended, normal bowel sounds Male genitourinary: Present: normal - Integumentary Integumentary: Present: clear, warm, dry - Musculoskeletal Musculoskeletal: gait normal, strength equal bilaterally - Psychiatric Psychiatric: appropriate mood/affect, intact judgment & insight - Neurologic Neurologic: CNII-XII intact, moves all extremities Plan Follow up with: PRIMARY MD LONNIE [Primary Care Provider] - 7 Days MIKE GERMAIN MD [Staff Physician] - 7 Days Prescriptions: Insulin NPH, Human [NovoLIN N] 15 unit SUB-Q BIDDIAB #1 vial
[2018-02-11 14:38] VITALS: BP 125/87
== END 2018-02-11 17:00 | disposition home or self-care (01) | DRG 438 ==
LOC: ED 09:41 → CC1 16:50 → 3A 02-06 13:47
PROVIDERS: ADMIT Internal Medicine; ATTEND Internal Medicine
PROC: 3E0234Z Introduction of Serum, Toxoid and Vaccine into Muscle, Percutaneous Approach (ICD-10-PCS; 2018-02-03)
PROC: 0W9B3ZZ Drainage of Left Pleural Cavity, Percutaneous Approach (ICD-10-PCS; principal; 2018-02-10)
DX: K85.00 Idiopathic acute pancreatitis without necrosis or infection (principal); E11.00 Type 2 diabetes mellitus with hyperosmolarity without nonketotic hyperglycemic-hyperosmolar coma (NKHHC); E11.10 Type 2 diabetes mellitus with ketoacidosis without coma; R65.11 Systemic inflammatory response syndrome (SIRS) of non-infectious origin with acute organ dysfunction; K65.9 Peritonitis, unspecified; E87.1 Hypo-osmolality and hyponatremia; J90 Pleural effusion, not elsewhere classified; D72.829 Elevated white blood cell count, unspecified; R00.0 Tachycardia, unspecified; E87.6 Hypokalemia; D69.6 Thrombocytopenia, unspecified; E86.0 Dehydration; Z23 Encounter for immunization
CPT/HCPCS: 32555; 36415; 71045; 71046; 74022; 74177; 80048; 80053; 80061; 80307; 81001; 82040; 82150; 82436; 82947; 82962; 83605; 83615; 83690; 83735; 83930; 83935; 84100; 84133; 84160; 84300; 84478; 85007; 85025; 85027; 85610; 85730; 86140; 87040; 87116; 88112; 88305; 89051; 90686; 90732; 93005; 93010; 96372; 96374; 96375; G0378; J0500; J1170; J1200; J1650; J1815; J1885; J1940; J2405; J2543; J3010; J7030; Q9967